=== PATIENT | female | born 1935 | race Caucasian/White ===

== ENCOUNTER 2018-02-23 11:15 | Inpatient (IN) | payer OTHER, MEDICARE ==
[2018-02-23] VITALS (10 sets, daily range): BP systolic 127–170; BP diastolic 58–85; PULSE 59–90; RESP 12–20; TEMP 96–98.2; O2SAT 96–99
[~2018-02-23] VITALS: Ht 167.6 cm; Wt 75.9 kg
[~2018-02-23 11:15] MED LIST: ASPI81 PO; BUSP5TAB3 PO; CALC500T21 PO; CLON0.2T PO; CLOP75 PO; DILA2INJ PO; FISH1000 PO; GLIM4TAB PO; GLUCTAB PO; HYDR25TA35 PO; KONS520C PO; LANTUS2P SC; LORA2TAB PO; LORTA5 PO; LUTE6CAP7 PO; MAGN500T4 PO; METO100T PO; NIFE30TA2 PO; NIFE60TA5 PO; PROT40TA PO; SIMV40TA PO; TAB-TAB PO; WARF5TAB PO; [UNRECOGNIZED DRUG - OTHER] PO
--- NOTE | 2018-02-23 11:29 | PD ---
HPI Chief Complaint: General Weakness Time Seen by Provider: 11:25 Travel History International Travel<30 days: No Contact w/Intl Traveler<30days: No Traveled to known affect area: No History of Present Illness HPI 82-year-old female patient with history of COPD, previous MD, CAD, stenting, peripheral vascular disease, presents to the ER today because she has had 1 week history of general weakness, coughing, shortness of breath and dyspnea on exertion. She states she has been nauseous as well but denies any chest pains, vomiting, or other symptoms. She was transported by EMS and was given duo nebs. Modifying Factors: None Associated Signs & Symptoms: General weakness, coughing, shortness of breath and dyspnea on exertion Risk Factors: Elderly, COPD PFSH Past Medical History Arthritis: Yes Cancer: No Cardiovascular Problems: Yes (STENTS) High Cholesterol: Yes Chest Pain: Yes Congestive Heart Failure: Yes Diabetes: Yes Endocrine: Yes Gastrointestinal Disorders: Yes (ESOPH. STRICTURE) GERD: Yes Genitourinary: No Headaches: Yes Hiatal Hernia: Yes Hypertension: Yes Immune Disorder: No Implanted Vascular Access Dvce: Yes Musculoskeletal: Yes Neurologic: Yes Psychiatric: No Reproductive: No Respiratory: No Myocardial Infarction: Yes (1996) Past Surgical History Abdominal Surgery: Yes (LAP. APURVA) Body Medical Devices: CARDIAC STENTS Cardiac Surgery: Yes (STENTS) Oral Surgery: Yes (T & A) Pacemaker: No Other Surgery: Yes ( CAROTID SURG) Social History Alcohol Use: No Tobacco Use: No Substance Use: No Allergies-Medications (Allergen,Severity, Reaction): Coded Allergies: morphine (Unverified Allergy, Severe, HIVES, 02/23/18) penicillin G (Unverified Allergy, Severe, HIVES, 02/23/18) Reported Meds & Prescriptions Reported Meds & Active Scripts Active Reported Pramipexole (Pramipexole Dihydrochloride) 0.5 Mg Tab 0.5 Mg PO HS Symbicort Inh (Budesonide/Formoterol Fumarate) 80-4.5 Mcg/Act Aero Unknown Dose INH Q12HR Metolazone 10 Mg Tab 10 Mg PO DAILY Lasix (Furosemide) 20 Mg Tab 20 Mg PO DAILY Gabapentin 300 Mg Cap 300 Mg PO TID [Iron] Oxycodone (Oxycodone HCl) 30 Mg Tab 30 Mg PO Q4-6H PRN Ativan (Lorazepam) 2 Mg Tab 2 Mg PO BID PRN Labetalol (Labetalol HCl) 200 Mg Tab 200 Mg PO TID Eliquis (Apixaban) 5 Mg Tab 5 Mg PO BID Klor-Con 10 (Potassium Chloride) 10 Meq Tab 20 Meq PO DAILY Tizanidine (Tizanidine HCl) 2 Mg Tab 2 Mg PO TID Singulair (Montelukast Sodium) 10 Mg Tab 10 Mg PO HS Amitriptyline (Amitriptyline HCl) 50 Mg Tab 50 Mg PO HS Zofran (Ondansetron HCl) 8 Mg Tab 8 Mg PO TID Lipitor (Atorvastatin Calcium) 20 Mg Tab 20 Mg PO HS Pantoprazole (Pantoprazole Sodium) 40 Mg Tab 40 Mg PO DAILY Review of Systems Except as stated in HPI: all other systems reviewed are Neg Physical Exam Narrative GENERAL: Well-developed elderly white female patient currently in moderate distress. Awake, lethargic, oriented 3. Poor historian. SKIN: Focused skin assessment warm/dry. HEAD: Atraumatic. Normocephalic. EYES: Pupils equal and round. No scleral icterus. No injection or drainage. ENT: No nasal bleeding or discharge. Mucous membranes pink and moist. NECK: Trachea midline. No JVD. Supple. CARDIOVASCULAR: Regular rate and rhythm. No murmur appreciated. RESPIRATORY: Mild accessory muscle use. Decreased throughout bilaterally. Breath sounds equal bilaterally. GASTROINTESTINAL: Abdomen soft, non-tender, nondistended. Hepatic and splenic margins not palpable. MUSCULOSKELETAL: No obvious deformities. No clubbing. No cyanosis. No edema. NEUROLOGICAL: Awake and alert. No obvious cranial nerve deficits. Motor grossly within normal limits. Normal speech. PSYCHIATRIC: Appropriate mood and affect; insight and judgment normal. Data Data Last Documented VS Vital Signs Date Time Temp Pulse Resp B/P (MAP) Pulse Ox O2 Delivery O2 Flow Rate FiO2 02/23/18 11:29 (102) 02/23/18 11:27 99 Nasal Cannula 2.00 02/23/18 11:22 98.2 62 16 Orders Orders Complete Blood Count With Diff (02/23/18 11:25) Comprehensive Metabolic Panel (02/23/18 11:25) B-Type Natriuretic Peptide (02/23/18 11:25) Act Partial Throm Time (Ptt) (02/23/18 11:25) Prothrombin Time / Inr (Pt) (02/23/18:25) Ckmb (Isoenzyme) Profile (02/23/18 11:25) Troponin I (02/23/18:) Urinalysis - C+S If Indicated (02/23/18:) Blood Culture (02/23/18:) Iv Access Insert/Monitor (02/23/18:) Electrocardiogram (02/23/18:) Ecg Monitoring (02/23/18) Oximetry (02/23/18:) Oxygen Administration (02/23/18:) Chest, Single Ap (02/23/18:25) Sodium Chloride 0.9% Flush (Ns Flush) (02/23/18 11:30) CKMB (02/23/18 11:45) CKMB% (02/23/18 11:45) Tramadol (Ultram) (02/23/18 12:30) Furosemide Inj (Lasix Inj) (02/23/18 12:30) Labs Laboratory Tests Test 02/23/18 11:45 White Blood Count 6.9 TH/MM3 Red Blood Count 3.39 MIL/MM3 Hemoglobin 9.9 GM/DL Hematocrit 30.3 % Mean Corpuscular Volume 89.4 FL Mean Corpuscular Hemoglobin 29.1 PG Mean Corpuscular Hemoglobin Concent 32.5 % Red Cell Distribution Width 14.5 % Platelet Count 337 TH/MM3 Mean Platelet Volume 8.2 FL CBC Comment AUTO DIFF Prothrombin Time 12.1 SEC Prothromb Time International Ratio 1.2 RATIO Activated Partial Thromboplast Time 25.7 SEC Blood Urea Nitrogen 12 MG/DL Creatinine 0.87 MG/DL Random Glucose 114 MG/DL Total Protein 7.1 GM/DL Albumin 2.9 GM/DL Calcium Level 8.7 MG/DL Alkaline Phosphatase 158 U/L Aspartate Amino Transf (AST/SGOT) 32 U/L Alanine Aminotransferase (ALT/SGPT) 27 U/L Total Bilirubin 0.7 MG/DL Sodium Level 128 MEQ/L Potassium Level 4.0 MEQ/L Chloride Level 91 MEQ/L Carbon Dioxide Level 29.1 MEQ/L Anion Gap 8 MEQ/L Estimat Glomerular Filtration Rate 62 ML/MIN Total Creatine Kinase 137 U/L Creatine Kinase MB 1.1 NG/ML Troponin I LESS THAN 0.02 NG/ML B-Type Natriuretic Peptide 971 PG/ML MDM Medical Decision Making Medical Screen Exam Complete: Yes Emergency Medical Condition: Yes Medical Record Reviewed: Yes Interpretation(s) EKG shows paced rhythm at a rate of 60 bpm with no signs of acute ST elevations or depressions. Laboratory Tests Test 02/23/18 11:45 Red Blood Count 3.39 MIL/MM3 (4.00-5.30) Hemoglobin 9.9 GM/DL (11.6-15.3) Hematocrit 30.3 % (35.0-46.0) Prothrombin Time 12.1 SEC (9.8-11.6) Random Glucose 114 MG/DL (74-106) Albumin 2.9 GM/DL (3.4-5.0) Alkaline Phosphatase 158 U/L (45-117) Sodium Level 128 MEQ/L (136-145) Chloride Level 91 MEQ/L (98-107) Estimat Glomerular Filtration Rate 62 ML/MIN (>89) Troponin I LESS THAN 0.02 NG/ML B-Type Natriuretic Peptide 971 PG/ML (0-100) Differential Diagnosis Shortness of breath, dyspnea on exertion, general weakness: Dehydration versus dysrhythmias versus metabolic issues versus sepsis versus pneumonia Narrative Course Chest x-ray shows white blood cell count is normal. Patient was given Lasix in the ER. Plan would be to admit her for further treatment. On further questioning, she admits she has had history of heart failure before. Case was discussed with Dr. Lanier for admission at this point. Diagnosis Primary Impression: CHF exacerbation Admitting Information Admitting Physician Requests: Admit Mariza Schafer MD Feb 23, 2018 11:29
[2018-02-23] MEDS ORDERED: SODIUM CHLORIDE 0.9% FLUSH 10 ML FLUSH IVF PRN (11:30)
[2018-02-23 12:02] LABS: CHLORIDE 91 MEQ/L (98-107); SODIUM (NA) 128 MEQ/L (136-145)
[2018-02-23 12:05] LABS: ALBUMIN 2.9 GM/DL (3.4-5.0); CALCIUM 8.7 MG/DL (8.5-10.1)
--- NOTE | 2018-02-23 12:05 | RADRPT ---
EXAM DATE/TIME: 02/23/2018 11:28 [facility] COMPARISON: CHEST SINGLE AP, November 23, 2012, 10:57. INDICATIONS : Short of breath. Body aches. MEDICAL HISTORY : Myocardial infarction. Congestive heart failure. Hypercholesterolemia. Diabetic. Hiatial hernia. GERD. Arthritis. SURGICAL HISTORY : Tonsillectomy. Cholecystectomy. Cardiac stent. ENCOUNTER: Initial ACUITY: 1 day PAIN SCORE: 7/10 LOCATION: head & legs FINDINGS: There is mild left base consolidation and with a probable small pleural effusion. No pneumothorax see n. There is mild cardiomegaly, similar to before. Thoracic aorta is tortuous and atherosclerotic. CONCLUSION: Mild consolidation and small effusion at the left lung base. Jude Xie MD on February 23, 2018 at 12:02 Board Certified Radiologist. This report was verified electronically.
[2018-02-23 12:06] LABS: BICARBONATE 29.1 MEQ/L (21.0-32.0); BLOOD UREA NITROGEN 12 MG/DL (7-18); GLUCOSE,RANDOM 114 MG/DL (74-106)
[2018-02-23 12:07] LABS: HEMATOCRIT 30.3 % (35.0-46.0); HEMOGLOBIN 9.9 GM/DL (11.6-15.3); INTERNATIONAL NORMALIZED RATIO 1.2 RATIO; MEAN CELL VOLUME 89.4 FL (80.0-100.0); MEAN CORPUSCULAR HEMOGLOBIN 29.1 PG (27.0-34.0); MEAN CORPUSCULAR HGB CONC 32.5 % (32.0-36.0); MEAN PLATELET VOLUME 8.2 FL (7.0-11.0); PLATELET COUNT 337 TH/MM3 (150-450); PROTHROMBIN TIME - PATIENT 12.1 SEC (9.8-11.6); RED BLOOD COUNT 3.39 MIL/MM3 (4.00-5.30); RED CELL DISTRIBUTION WIDTH 14.5 % (11.6-17.2); WHITE BLOOD COUNT 6.9 TH/MM3 (4.0-11.0)
[2018-02-23 12:08] LABS: ALT (GPT) 27 U/L (10-53)
[2018-02-23 12:09] LABS: AST (GOT) 32 U/L (15-37); CREATININE 0.87 MG/DL (0.50-1.00); GLOMERULAR FILTRATION RATE 62 ML/MIN (>89)
[2018-02-23 12:10] LABS: TOTAL BILIRUBIN ADULT 0.7 MG/DL (0.2-1.0); TOTAL PROTEIN 7.1 GM/DL (6.4-8.2)
[2018-02-23 12:11] LABS: ALKALINE PHOSPHATASE 158 U/L (45-117)
[2018-02-23 12:13] LABS: TROPONIN I LESS THAN 0.02 NG/ML (0.02-0.05)
[2018-02-23] MEDS ORDERED: LIPI20TA PO (12:22)
[2018-02-23] MEDS ORDERED: METO10TA4 PO (12:22)
[2018-02-23] MEDS ORDERED: AMIT50TA3 PO (12:22)
[2018-02-23] MEDS ORDERED: LORA-475 PO (12:22)
[2018-02-23] MEDS ORDERED: FURO1TAB62 PO (12:22)
[2018-02-23] MEDS ORDERED: LABE200T2 PO (12:22)
[2018-02-23] MEDS ORDERED: MONT10TA2 PO (12:22)
[2018-02-23] MEDS ORDERED: GABA300C5 PO (12:22)
[2018-02-23] MEDS ORDERED: OXYC30TA PO (12:22)
[2018-02-23] MEDS ORDERED: APIX5TAB PO (12:22)
[2018-02-23] MEDS ORDERED: ZOFR8TAB PO (12:22)
[2018-02-23] MEDS ORDERED: IRONTAB5 (12:22)
[2018-02-23] MEDS ORDERED: KLOR10TA PO (12:22)
[2018-02-23] MEDS ORDERED: SYMB80AE INH (12:22)
[2018-02-23] MEDS ORDERED: TIZA2TAB PO (12:22)
[2018-02-23] MEDS ORDERED: PANT40TA3 PO (12:22)
[2018-02-23] MEDS ORDERED: PRAM0.5T PO (12:23)
[2018-02-23] MEDS ORDERED: traMADol HCL 50 MG TAB PO ONE (12:30)
[2018-02-23] MEDS ORDERED: FUROSEMIDE 20 MG/2 ML VIAL IV PUSH ONE (12:30)
[2018-02-23] MEDS ORDERED: SODIUM CHLORIDE 0.9% FLUSH 10 ML FLUSH IV FLUSH PRN (12:45)
[2018-02-23] MEDS ORDERED: NALOXONE HCL 0.4 MG/ML AMP IV PUSH PRN (12:45)
[2018-02-23 13:00] LABS: LYMPHOCYTES 19 % (9-44); MONOCYTES 6 % (0-8); NEUTROPHIL # MANUAL DIFF 4.9 TH/MM3 (1.8-7.7); POLYS (SEG NEUTROPHILS) 71 % (16-70)
[2018-02-23 13:04] LABS: OVALOCYTES 1+ (NORMAL)
[2018-02-23 13:13] LABS: BILIRUBIN, URINE NEG (NEG); BLOOD, URINE NEG (NEG); GLUCOSE,URINE NEG (NEG); KETONE, URINE NEG (NEG); NITRITE,URINE NEG (NEG); URINE COLOR YELLOW (YELLW/STRAW); URINE LEUKOCYTE ESTERASE NEG (NEG)
[2018-02-23 13:19] LABS: SQUAMOUS EPITHELIAL CELL URINE 0-5 /hpf (0-5); WBC, URINE 0-2 /hpf (0-5)
[2018-02-23] MEDS ORDERED: ACETAMINOPHEN 325 MG TAB PO PRN (14:00)
[2018-02-23] MEDS ORDERED: MAGNESIUM HYDROXIDE SUSP 30 ML CUP PO PRN (14:00)
[2018-02-23] MEDS ORDERED: LANTUS2P SQ (14:06)
[2018-02-23] MEDS ORDERED: DEXTROSE 50% IN WATER 50 ML VIAL(D50) IV PUSH PRN (14:30)
[2018-02-23] MEDS ORDERED: GLUCAGON 1 MG/ML VIAL OTHER PRN (14:30)
--- NOTE | 2018-02-23 14:49 | HHI.HP ---
[facility] Service [place] [facility] Primary Care Physician Crystal Allen MD Admission Diagnosis CHF exacerbation/hyponatremia Diagnoses: Chief Complaint: Weakness Travel History International Travel<30 Days: No Contact w/Intl Traveler <30 Da: No Traveled to Known Affected Are: No Review of Systems Constitutional: COMPLAINS OF: Fatigue, DENIES: Diaphoretic episodes, Fever, Weight gain, Weight loss, Chills, Dizziness, Change in appetite, Night Sweats Endocrine: DENIES: Abnorml menstrual pattern, Heat/cold intolerance, Polydipsia , Polyuria, Polyphagia Eyes: DENIES: Blurred vision, Diplopia, Eye inflammation, Eye pain, Vision loss , Photosensitivity, Double Vision Ears, nose, mouth, throat: DENIES: Tinnitus, Hearing loss, Vertigo, Nasal discharge, Oral lesions, Throat pain, Hoarseness, Ear Pain, Running Nose, Epistaxis, Sinus Pain, Toothache, Odynophagia Respiratory: COMPLAINS OF: Snoring, Shortness of breath, DENIES: Apneas, Cough , Wheezing, Hemoptysis, Sputum production Cardiovascular: COMPLAINS OF: Dyspnea on Exertion, Lower Extremity Edema, Orthopnea, DENIES: Chest pain, Palpitations, Syncope, PND, Claudication Gastrointestinal: DENIES: Abdominal pain, Black stools, Bloody stools, Constipation, Diarrhea, Nausea, Vomiting, Difficulty Swallowing, Anorexia Genitourinary: DENIES: Abnormal vaginal bleeding, Dysmenorrhea, Dyspareunia, Sexual dysfunction, Urinary frequency, Urinary incontinence, Urgency, Hematuria , Dysuria, Nocturia, Vaginal discharge Musculoskeletal: COMPLAINS OF: Joint pain, Joint Swelling, Back pain, DENIES: Muscle aches, Stiffness, Neck pain Integumentary: DENIES: Abnormal pigmentation, Pruritus, Rash, Nail changes, Breast masses, Breast skin changes, Nipple discharge Immunologic/allergic: DENIES: Eczema, Urticaria Neurologic: COMPLAINS OF: Headache, DENIES: Abnormal gait, Localized weakness, Paresthesias, Seizures, Speech Problems, Tremor, Poor Balance Psychiatric: DENIES: Anxiety, Confusion, Mood changes, Depression, Hallucinations, Agitation, Suicidal Ideation, Homicidal Ideation, Delusions Except as stated in HPI: all other systems reviewed are Neg Past Family Social History Past Medical History Congestive heart failure Cardiac stents Arthritis Diabetes Chronic pain syndrome Coronary artery disease Past Surgical History Pacemaker Cardiac stents 3 Carotid surgery Tonsils Cholecystectomy with recent stent removal Reported Medications Reviewed in the EMR Allergies: Coded Allergies: morphine (Unverified Allergy, Severe, HIVES, 02/23/18) penicillin G (Unverified Allergy, Severe, HIVES, 02/23/18) Active Ordered Medications Reviewed in the EMR Family History Family history of hypertension coronary disease Social History No tobacco or alcohol dependency, lives with her family Physical Exam Vital Signs Vital Signs Date Time Temp Pulse Resp B/P (MAP) Pulse Ox O2 Delivery O2 Flow Rate FiO2 02/23/18 13:21 02/23/18 13:21 59 16 157/85 (109) 96 Room Air 02/23/18 11:29 (102) 02/23/18 11:27 99 Nasal Cannula 2.00 02/23/18 11:27 99 Nasal Cannula 2.00 02/23/18 11:22 99 Nasal Cannula 2.00 02/23/18 11:22 98.2 62 16 166/70 (102) 96 Room Air Physical Exam GENERAL: This is a well-nourished, frail and elderly female complaining of fatigue SKIN: No rashes, ecchymoses or lesions. Cool and dry. HEAD: Atraumatic. Normocephalic. No temporal or scalp tenderness. EYES: Pupils equal round and reactive. Extraocular motions intact. No scleral icterus. No injection or drainage. ENT: Nose without bleeding, purulent drainage or septal hematoma. Throat without erythema, tonsillar hypertrophy or exudate. Uvula midline. Airway patent. NECK: Trachea midline. No JVD or lymphadenopathy. Supple, nontender, no meningeal signs. CARDIOVASCULAR: Regular rate and rhythm without murmurs, gallops, or rubs. RESPIRATORY: Clear to auscultation. Breath sounds equal bilaterally. No wheezes , rales, or rhonchi. GASTROINTESTINAL: Abdomen soft, non-tender, nondistended. No hepato-splenomegaly , or palpable masses. No guarding. MUSCULOSKELETAL: There is left knee edema, extremities without clubbing, cyanosis, or edema. No joint tenderness, effusion, or edema noted. No calf tenderness. Negative Homans sign bilaterally. NEUROLOGICAL: Awake and alert. Cranial nerves II through XII intact. Motor and sensory grossly within normal limits. Five out of 5 muscle strength in all muscle groups. Normal speech. Laboratory Laboratory Tests Test 02/23/18 11:45 02/23/18 13:00 White Blood Count 6.9 Red Blood Count 3.39 Hemoglobin 9.9 Hematocrit 30.3 Mean Corpuscular Volume 89.4 Mean Corpuscular Hemoglobin 29.1 Mean Corpuscular Hemoglobin Concent 32.5 Red Cell Distribution Width 14.5 Platelet Count 337 Mean Platelet Volume 8.2 CBC Comment AUTO DIFF Differential Total Cells Counted 100 Neutrophils % (Manual) 71 Lymphocytes % 19 Monocytes % 6 Eosinophils % 4 Neutrophils # (Manual) 4.9 Differential Comment FINAL DIFF MANUAL Platelet Estimate NORMAL Platelet Morphology Comment NORMAL Ovalocytes 1+ Prothrombin Time 12.1 Prothromb Time International Ratio 1.2 Activated Partial Thromboplast Time 25.7 Blood Urea Nitrogen 12 Creatinine 0.87 Random Glucose 114 Total Protein 7.1 Albumin 2.9 Calcium Level 8.7 Alkaline Phosphatase 158 Aspartate Amino Transf (AST/SGOT) 32 Alanine Aminotransferase (ALT/SGPT) 27 Total Bilirubin 0.7 Sodium Level 128 Potassium Level 4.0 Chloride Level 91 Carbon Dioxide Level 29.1 Anion Gap 8 Estimat Glomerular Filtration Rate 62 Total Creatine Kinase 137 Creatine Kinase MB 1.1 Troponin I LESS THAN 0.02 B-Type Natriuretic Peptide 971 Urine Collection Type CLEAN CATCH Urine Color YELLOW Urine Turbidity CLEAR Urine pH 7.0 Urine Specific [place] 1.015 Urine Protein 30 Urine Glucose (UA) NEG Urine Ketones NEG Urine Occult Blood NEG Urine Nitrite NEG Urine Bilirubin NEG Urine Urobilinogen 0.2 Urine Leukocyte Esterase NEG Urine WBC 0-2 Urine Squamous Epithelial Cells 0-5 Microscopic Urinalysis Comment CULT NOT INDICATED Urine Collection Time 13:00 Date/Time Source Procedure Growth Status 02/23/18 11:45 Blood Peripheral Aerobic Blood Culture Pending Received 02/23/18 11:45 Blood Peripheral Anaerobic Blood Culture Pending Received Result Diagram: 02/23/18 1145 02/23/18 1145 Imaging Chest x-ray my review does show some vascular congestion Septic Shock Reassessment Septic shock perfusion: reassessment completed Caprini VTE Risk Assessment Caprini VTE Risk Assessment: Mod/High Risk (score >= 2) Caprini Risk Assessment Model Point Value = 1 Point Value = 2 Point Value = 3 Point Value = 5 Age 41-60 Minor surgery BMI > 25 kg/m2 Swollen legs Varicose veins or History of unexplained or recurrent spontaneous Oral contraceptives or hormone replacement Sepsis (< 1 month) Serious lung disease, including pneumonia (< 1 month) Abnormal pulmonary function Acute myocardial infarction Congestive heart failure (< 1 month) History of inflammatory bowel disease Medical patient at bed rest Age 61-74 Arthroscopic surgery Major open surgery (> 45 min) Laparoscopic surgery (> 45 min) Malignancy Confined to bed (> 72 hours) Immobilizing plaster cast Central venous access Age >= 75 History of VTE Family history of VTE Factor V Leiden Prothrombin [id number] Lupus anticoagulant Anticardiolipin antibodies Elevated serum homocysteine Heparin-induced thrombocytopenia Other congenital or acquired thrombophilia Stroke (< 1 month) Elective arthroplasty Hip, pelvis, or leg fracture Acute spinal cord injury (< 1 month) Prophylaxis Regimen Total Risk Factor Score Risk Level Prophylaxis Regimen 0-1 Low Early ambulation 2 Moderate Order ONE of the following: *Sequential Compression Device (SCD) *Heparin 5000 units SQ BID 3-4 Higher Order ONE of the following medications: *Heparin 5000 units SQ TID *Enoxaparin/Lovenox 40 mg SQ daily (WT < 150 kg, CrCl > 30 mL/min) *Enoxaparin/Lovenox 30 mg SQ daily (WT < 150 kg, CrCl > 10-29 mL/min) *Enoxaparin/Lovenox 30 mg SQ BID (WT < 150 kg, CrCl > 30 mL/min) AND/OR *Sequential Compression Device (SCD) 5 or more Highest Order ONE of the following medications: *Heparin 5000 units SQ TID (Preferred with Epidurals) *Enoxaparin/Lovenox 40 mg SQ daily (WT < 150 kg, CrCl > 30 mL/min) *Enoxaparin/Lovenox 30 mg SQ daily (WT < 150 kg, CrCl > 10-29 mL/min) *Enoxaparin/Lovenox 30 mg SQ BID (WT < 150 kg, CrCl > 30 mL/min) AND *Sequential Compression Device (SCD) Assessment and Plan Problem List: (1) Weakness ICD Code: R53.1 - Weakness Plan: Multifactorial due to likely congestive heart failure exacerbation and hyponatremia We will continue with following up electrolytes and his volume status is corrected PT evaluation (2) Constipation ICD Code: K59.00 - Constipation, unspecified Plan: Continue with bowel regimen (3) DM2 (diabetes mellitus, type 2) ICD Code: E11.9 - Type 2 diabetes mellitus without complications Plan: Continue with diabetic management with insulin and diabetic diet (4) Hyponatremia ICD Code: E87.1 - Hypo-osmolality and hyponatremia Plan: Likely due to CHF exacerbation, will continue with diuresis and follow clinically (5) CHF exacerbation ICD Code: I50.9 - Heart failure, unspecified Status: Acute Plan: Continue with intake and output, follow-up diuretic management Continue surveillance of his electrolytes Assessment and Plan Plan of care to be determined by hospital course Code Status full code Discussed Condition With Patient, ER MD Lanier,Kathy Strickland MD Feb 23, 2018 14:49
[2018-02-23] MEDS ORDERED: LORazepam 2 MG TAB PO PRN (15:00)
[2018-02-23] MEDS ORDERED: cloNIDine HCL 0.1 MG TAB PO PRN (16:30)
[2018-02-23] MEDS: GABAPENTIN 300 MG CAP PO SCH (17:18)
[2018-02-23] MEDS: INSULIN ASPART SUPPLEMENTAL SCALE SQ SCH ×2 (17:18→21:25)
[2018-02-23] MEDS: ONDANSETRON HCL 4 MG/2 ML VIAL IVP PRN (17:19)
[2018-02-23] MEDS: LABETALOL HCL 200 MG TAB PO SCH (17:19)
[2018-02-23] MEDS: FUROSEMIDE 40 MG/4 ML VIAL IV PUSH SCH (17:20)
[2018-02-23] MEDS ORDERED: AMITRIPTYLINE HCL 50 MG TAB PO SCH (21:00)
[2018-02-23] MEDS: INSULIN DETEMIR 100 UNITS/ML VIAL SQ SCH (21:25)
[2018-02-23] MEDS: MONTELUKAST SODIUM 10 MG TAB PO SCH (21:27)
[2018-02-23] MEDS: DOCUSATE SODIUM 100 MG CAP PO SCH (21:27)
[2018-02-23] MEDS: PRAMIPEXOLE DIHYDROCHLORIDE 0.25 MG TAB PO SCH (21:27)
[2018-02-23] MEDS: ATORVASTATIN 20 MG TAB PO SCH (21:27)
[2018-02-23] MEDS: APIXABAN 5 MG TABLET PO SCH (21:28)
[2018-02-23] MEDS: SODIUM CHLORIDE 0.9% FLUSH 10 ML FLUSH IV FLUSH SCH (21:37)
[2018-02-24] VITALS (10 sets, daily range): BP systolic 108–135; BP diastolic 56–62; PULSE 59–72; RESP 18–20; TEMP 96.3–98.7; O2SAT 93–98
[2018-02-24 07:24] LABS: AUTOMATED NEUTROPHIL # 4.8 TH/MM3 (1.8-7.7); BASOPHIL % 0.7 % (0.0-2.0); EOSINOPHIL # 0.4 TH/MM3 (0-0.4); EOSINOPHIL % 6.2 % (0.0-4.0); HEMATOCRIT 28.6 % (35.0-46.0); HEMOGLOBIN 9.4 GM/DL (11.6-15.3); LYMPH % 17.5 % (9.0-44.0); LYMPHOCYTE # 1.2 TH/MM3 (1.0-4.8); MEAN CELL VOLUME 89.8 FL (80.0-100.0); MEAN CORPUSCULAR HEMOGLOBIN 29.6 PG (27.0-34.0); MEAN PLATELET VOLUME 8.1 FL (7.0-11.0); MONO % 8.2 % (0.0-8.0); MONOCYTE # 0.6 TH/MM3 (0-0.9); NEUT % 67.4 % (16.0-70.0); PLATELET COUNT 317 TH/MM3 (150-450); RED BLOOD COUNT 3.18 MIL/MM3 (4.00-5.30); RED CELL DISTRIBUTION WIDTH 14.5 % (11.6-17.2)
[2018-02-24 07:33] LABS: CALCIUM 8.3 MG/DL (8.5-10.1)
[2018-02-24 07:34] LABS: BICARBONATE 32.7 MEQ/L (21.0-32.0)
[2018-02-24 07:37] LABS: CREATININE 1.1 MG/DL (0.50-1.00)
[2018-02-24] MEDS: INSULIN ASPART SUPPLEMENTAL SCALE SQ SCH ×4 (07:46→22:17)
--- NOTE | 2018-02-24 08:03 | EKG ---
Date Performed: 02/23/2018 Time Performed: 19:36:34 PTAGE: 82 years EKG: ELECTRONIC VENTRICULAR PACEMAKER ABNORMAL RHYTHM ECG PREVIOUS TRACING : 02/23/2018 12.19 DOCTOR: Syed Rosales Interpretating Date/Time 02/24/2018 08:01:51
--- NOTE | 2018-02-24 08:06 | MB ---
cc: Jaspal Walker MD DATE: 02/24/2018 REASON FOR CONSULTATION: CHF. HISTORY OF PRESENT ILLNESS: The patient is a pleasant 82-year-old woman who presents with generalized weakness and shortness of breath. From speaking with her and her daughter, it sounds that the patient has not been doing well for at least the last several months with general failure to thrive. She has been in the hospital for gallbladder related issues as well as hyponatremia and apparently left [facility] still hyponatremic. The patient has been very weak, sleeping. The patient's granddaughter states that she basically has not been able to keep her eyes open for the last several weeks and is generally not able to take care of herself. Currently, the patient is feeling better since she has been started on diuresis, but is still very somnolent. She is able to answer questions, but her eyes quickly closed and she drifts into a light sleep. PAST MEDICAL HISTORY: Congestive heart failure, coronary artery disease with prior stents, chronic pain syndrome, history of pacemaker, presumptive atrial fibrillation maintained on Eliquis. CURRENT MEDICATIONS: 1. Zaroxolyn 10 mg daily. 2. MiraLax. 3. Protonix. 4. Elavil 50 mg at bedtime. 5. Eliquis 5 mg twice a day. 6. Lipitor 20 mg at bedtime. 7. Gabapentin 300 mg three times a day. 8. Tramadol 200 mg three times a day. 9. Zanaflex 2 mg three times a day. ALLERGIES: MORPHINE AND PENICILLIN. PHYSICAL EXAMINATION: VITAL SIGNS: Afebrile, pulse 60, respiratory rate 20, BP 115/56, satting 98 on 2 liters. GENERAL: Pleasant, elderly, somnolent woman in no distress. NECK: No JVD. LUNGS: Clear to auscultation bilaterally. CARDIOVASCULAR: Regular rate and rhythm. No murmurs appreciated. ABDOMEN: Benign. EXTREMITIES: Trace edema bilaterally. LABORATORY DATA: Sodium 128, potassium 4.0, chloride 91, bicarbonate 29.1, BUN 12, creatinine 0.87, glucose 114. Cardiac enzymes are negative. BNP is 971. White count 7, hematocrit 28.6, platelets 317. EKG shows a paced rhythm. Chest x-ray shows mild consolidation, small effusions. ASSESSMENT AND PLAN: 1. Shortness of breath. The patient likely had a mild CHF exacerbation. She is already feeling better on IV diuresis and this will continue. I will have her undergo an echocardiogram to ensure no significant change in ejection fraction or valvular status. 2. Generalized weakness. The patient has generalized weakness possibly due to hyponatremia, but also may have general failure to thrive. I note, she is on a number of psychotropic medications which may be affecting her mental status and overall weakness. I would ask the primary team to reevaluate her overall medication regimen in this regard. Further recommendations will be based on her clinical course, although it is a fairly high likelihood that the patient will need some sort of short to long-term care following discharge as she does not appear to be safe at home. Thank you for the opportunity to participate in this patient's care. Jaspal Walker MD TITA/RADHA , 07:36 AM , 08:06 AM
[2018-02-24] MEDS: INSULIN DETEMIR 100 UNITS/ML VIAL SQ SCH ×2 (08:39→22:16)
[2018-02-24] MEDS: GABAPENTIN 300 MG CAP PO SCH ×2 (08:40→17:12)
[2018-02-24] MEDS: PANTOPRAZOLE SOD 40 MG DELAYED RELEASE TAB PO SCH (08:40)
[2018-02-24] MEDS: LABETALOL HCL 200 MG TAB PO SCH ×2 (08:40→17:12)
[2018-02-24] MEDS: APIXABAN 5 MG TABLET PO SCH ×2 (08:41→22:19)
[2018-02-24] MEDS: POLYETHYLENE GLYCOL 17 GM PKG PO SCH (08:41)
[2018-02-24] MEDS: DOCUSATE SODIUM 100 MG CAP PO SCH ×2 (08:42→22:18)
[2018-02-24] MEDS: FUROSEMIDE 40 MG/4 ML VIAL IV PUSH SCH ×2 (08:42→17:12)
[2018-02-24] MEDS: SODIUM CHLORIDE 0.9% FLUSH 10 ML FLUSH IV FLUSH SCH ×2 (08:43→22:22)
[2018-02-24] MEDS ORDERED: POTASSIUM CHLORIDE 20 MEQ CONTROLLED RELEASE TAB PO SCH (09:00)
[2018-02-24] MEDS ORDERED: METOLAZONE 5 MG TAB PO SCH (09:00)
--- NOTE | 2018-02-24 10:10 | HHI.FF ---
Face to Face Verification Diagnosis: (1) DM2 (diabetes mellitus, type 2) (2) Weakness (3) Hyponatremia (4) CHF exacerbation Physical Therapy Order: Evaluate and Treat, Improve ambulation Occupational Therapy Order: Evaluate and Treat, Gross motor coordination Home Health Nursing Order: Medical education CHF education Entry Level Electrical Engineer Order: To Provide: Long range planning I have seen patient Carin Hill on 02/24/18. My clinical findings support the need for the requested home health care services because: Deconditioned w/ increased weakness Limited ability to care for self I certify that my clinical findings support that this patient is homebound because: Unsteady gait/balance Kathy Lanier MD Feb 24, 2018 10:10
--- NOTE | 2018-02-24 12:31 | ECHRPT ---
Indication: HEART FAILURE CONCLUSIONS The left ventricular systolic function is low normal with an estimated ejection fraction in the rang e of 50- 55%. Normal left ventricular size. Wall thickness is normal. No regional wall motion abnormalities are present. The left atrial size is mildly dilated. Mild mitral annular calcification. [id number] mitral valve regurgitation. Diffuse calcification of the aortic valve. There is trace tricuspid valve regurgitation. The estimated pulmonary arterial pressure is 35 mmHg. aneurysmal atrial septum BP: 115 / 56 HR: 75 Rhythm: Sinus MEASUREMENTS (Male / Female) Normal Values Technical Quality:Good 2D ECHO LV Diastolic Diameter PLAX 4.2 cm 4.2 - 5.9 / 3.9 - 5.3 cm LV Systolic Diameter PLAX 3.2 cm IVS Diastolic Thickness 1.0 cm 0.6 - 1.0 / 0.6 - 0.9 cm LVPW Diastolic Thickness 1.0 cm 0.6 - 1.0 / 0.6 - 0.9 cm LV Relative Wall Thickness 0.5 RV Internal Dim ED PLAX 2.7 cm LVOT Diameter 1.6 cm LA Systolic Diameter LX 4.2 cm 3.0 - 4.0 / 2.7 - 3.8 cm LV Ejection Fraction MOD 4C 53.7 % LV Cardiac Index MOD 4C 1753.4 cm/minm LV Ejection Fraction 4C AL 55.2 % LV Cardiac Index 4C AL 1838.3 cm/minm M-MODE Aortic Root Diameter MM 2.3 cm LA Systolic Diameter MM 4.3 cm LA Ao Ratio MM 1.9 AV Cusp Separation MM 1.5 cm DOPPLER AV Peak Velocity 153.0 cm/s AV Peak Gradient 9.4 mmHg LVOT Peak Velocity 96.3 cm/s LVOT Peak Gradient 3.7 mmHg AV Area Cont Eq pk 1.3 cm MV Area PHT 3.4 cm TR Peak Velocity 250.0 cm/s TR Peak Gradient 25.0 mmHg Right Atrial Pressure 10.0 mmHg Pulmonary Artery Systolic Pressu 35.0 mmHg Right Ventricular Systolic Press 35.0 mmHg PV Peak Velocity 73.3 cm/s PV Peak Gradient 2.1 mmHg FINDINGS LEFT VENTRICLE The left ventricular systolic function is low normal with an estimated ejection fraction in the rang e of 50- 55%. Normal left ventricular size. Wall thickness is normal. No regional wall motion abnormalities are present. RIGHT VENTRICLE Normal right ventricular size and systolic function. LEFT ATRIUM The left atrial size is mildly dilated. RIGHT ATRIUM The right atrial size is normal. AORTA The aortic root and proximal ascending aorta are normal in size on limited imaging. MITRAL VALVE Structurally normal mitral valve. Mild mitral annular calcification. [id number] mitral valve regurgitation. AORTIC VALVE Trileaflet aortic valve. Diffuse calcification of the aortic valve. TRICUSPID VALVE Structurally normal tricuspid valve. There is trace tricuspid valve regurgitation. The estimated pulmonary arterial pressure is 35 mmHg. PULMONARY VALVE No pulmonary valve regurgitation or stenosis. VESSELS The inferior vena cava is normal in size. PERICARDIUM No pericardial effusion. Chadd Vallejo MD, FACC, [facility] (Electronically Signed) Final Date:24 February 2018 12:30
--- NOTE | 2018-02-24 12:59 | HHI.PR ---
Subjective Remarks Patient seen and evaluated today in follow-up for acute diastolic heart failure with improvement after diuresis. Sodium somewhat improved. Cardiology evaluation appreciated. Potassium 3.3 will require further replacement. Patient complaining of leg cramps overnight likely worse with the hypokalemia. Care plan discussed with Kendra GIBBS Objective Vitals Vital Signs Date Time Temp Pulse Resp B/P (MAP) Pulse Ox O2 Delivery O2 Flow Rate FiO2 02/24/18 07:50 97.0 59 19 119/61 (80) 96 02/24/18 07:01 60 02/24/18 04:00 97.6 60 20 115/56 (75) 98 02/24/18 00:00 98.0 72 20 135/62 (86) 98 02/23/18 20:40 98 Nasal Cannula 2.00 02/23/18 20:00 68 02/23/18 20:00 96.9 79 20 127/58 (81) 99 02/23/18 17:15 134/72 (92) 02/23/18 16:00 96.0 90 12 170/80 (110) 98 02/23/18 14:47 67 162/71 (101) 02/23/18 14:10 60 02/23/18 13:36 96 21 02/23/18 13:21 02/23/18 13:21 59 16 157/85 (109) 96 Room Air I/O 02/23/18 02/23/18 02/23/18 02/24/18 02/24/18 02/24/18 07:00 15:00 23:00 07:00 15:00 23:00 Intake Total 620 ml 930 ml Output Total 950 ml Balance -950 ml 620 ml 930 ml Intake Oral 620 ml 930 ml Output Urine Total 950 ml # Voids 1 3 3 # Bowel Movements 0 0 Result Diagram: 02/24/18 0635 02/24/18 0635 Objective Remarks GENERAL: This is a well-nourished, well-developed patient, in no apparent distress. CARDIOVASCULAR: Regular rate and rhythm without murmurs, gallops, or rubs. RESPIRATORY: Clear to auscultation. Breath sounds equal bilaterally. No wheezes , rales, or rhonchi. GASTROINTESTINAL: Abdomen soft, non-tender, nondistended. Normal active bowel sounds MUSCULOSKELETAL: Extremities without clubbing, cyanosis, or edema. NEURO: Alert & Oriented x4 to person, place, time, situation. Moves all ext x4 A/P Problem List: (1) Weakness ICD Code: R53.1 - Weakness Plan: Multifactorial due to likely congestive heart failure exacerbation and hyponatremia We will continue with following up electrolytes and his volume status is corrected PT evaluation We will review medications for polypharmacy Ativan has been changed to as needed , and the doses of Ativan and Elavil have been lowered (2) Constipation ICD Code: K59.00 - Constipation, unspecified Plan: Continue with bowel regimen (3) DM2 (diabetes mellitus, type 2) ICD Code: E11.9 - Type 2 diabetes mellitus without complications Plan: Continue with diabetic management with insulin and diabetic diet (4) Hyponatremia ICD Code: E87.1 - Hypo-osmolality and hyponatremia Plan: Likely due to CHF exacerbation, will continue with diuresis and follow clinically (5) CHF exacerbation ICD Code: I50.9 - Heart failure, unspecified Status: Acute Plan: Continue with intake and output, follow-up diuretic management Continue surveillance of his electrolytes Likely acute diastolic heart failure exacerbation, improved after diuresis Discharge Planning Likely home with home health in 1-2 days Kathy Lanier MD Feb 24, 2018 12:59
[2018-02-24] MEDS ORDERED: BISACODYL EC 5 MG TABEC PO ONE (13:00)
[2018-02-24] MEDS ORDERED: LORazepam 2 MG TAB PO PRN (13:00)
--- NOTE | 2018-02-24 13:24 | EKG ---
Date Performed: 02/23/2018 Time Performed: 12:19:20 PTAGE: 82 years EKG: ELECTRONIC VENTRICULAR PACEMAKER ABNORMAL RHYTHM ECG PREVIOUS TRACING : 11/24/2012 05.50 DOCTOR: Syed Rosales Interpretating Date/Time 02/24/2018 13:22:34
[2018-02-24] MEDS: MONTELUKAST SODIUM 10 MG TAB PO SCH (22:17)
[2018-02-24] MEDS: PRAMIPEXOLE DIHYDROCHLORIDE 0.25 MG TAB PO SCH (22:18)
[2018-02-24] MEDS: ATORVASTATIN 20 MG TAB PO SCH (22:18)
[2018-02-24] MEDS: AMITRIPTYLINE HCL 25 MG TAB PO SCH (22:22)
[2018-02-24] MEDS: POTASSIUM CHLORIDE 20 MEQ CONTROLLED RELEASE TAB PO SCH (22:22)
[2018-02-25] VITALS (9 sets, daily range): BP systolic 106–166; BP diastolic 53–92; PULSE 60–74; RESP 18–20; TEMP 96.8–98.3; O2SAT 91–99
[2018-02-25] MEDS: LABETALOL HCL 200 MG TAB PO SCH ×3 (00:21→16:29)
[2018-02-25] MEDS: GABAPENTIN 300 MG CAP PO SCH ×2 (00:21→21:09)
[2018-02-25 07:04] LABS: CALCIUM 8.1 MG/DL (8.5-10.1)
[2018-02-25 07:05] LABS: BICARBONATE 34.6 MEQ/L (21.0-32.0)
[2018-02-25 07:08] LABS: CREATININE 1.4 MG/DL (0.50-1.00)
--- NOTE | 2018-02-25 07:50 | PD.CARD.PN ---
Subjective Subjective Remarks Pt says she is feeling a little better but a bit wheezy Objective Medications Current Medications Medications (Trade) Dose Ordered Sig/Emelia Route Start Time Stop Time Status Last Admin (NS Flush) 2 ml UNSCH PRN IV FLUSH 02/23/18 12:45 (NS Flush) 2 ml BID IV FLUSH 02/23/18 21:00 02/24/18 22:22 (Tylenol) 650 mg Q4H PRN PO 02/23/18 14:00 (Zofran Inj) 4 mg Q6H PRN IVP 02/23/18 14:00 02/23/18 17:19 (Narcan Inj) 0.4 mg UNSCH PRN IV PUSH 02/23/18 12:45 (Milk Of Magnesia Liq) 30 ml Q12H PRN PO 02/23/18 14:00 (Miralax) 17 gm DAILY PO 02/24/18 09:00 02/24/18 08:41 (Colace) 100 mg BID PO 02/23/18 21:00 02/24/18 22:18 (D50w (Vial) Inj) 50 ml UNSCH PRN IV PUSH 02/23/18 14:30 (Glucagon Inj) 1 mg UNSCH PRN OTHER 02/23/18 14:30 (NovoLOG SUPPLEMENTAL SCALE) 1 ACHS SLIDING SCALE SQ 02/23/18 17:00 02/24/18 22:17 (Eliquis) 5 mg BID PO 02/23/18 21:00 02/24/18 22:19 (Lipitor) 20 mg HS PO 02/23/18 21:00 02/24/18 22:18 (Levemir Inj) 10 units BID SQ 02/23/18 21:00 02/24/18 22:16 (Zaroxolyn) 10 mg DAILY PO 02/24/18 09:00 02/24/18 08:42 (Singulair) 10 mg HS PO 02/23/18 21:00 02/24/18 22:17 (Protonix) 40 mg DAILY PO 02/24/18 09:00 02/24/18 08:40 (Roxicodone) 30 mg Q4H PRN PO 02/23/18 15:00 02/25/18 00:34 (Mirapex) 0.5 mg HS PO 02/23/18 21:00 02/24/18 22:18 (Lasix Inj) 40 mg BID@,18 IV PUSH 02/23/18 18:00 02/24/18 17:12 (Catapres) 0.1 mg Q6H PRN PO 02/23/18 16:30 (KCl) 20 meq Q12HR PO 02/24/18 21:00 02/24/18 22:22 (Neurontin) 300 mg Q8H PO 02/24/18 17:00 02/25/18 00:21 (Trandate) 200 mg Q8H PO 02/24/18 17:00 02/25/18 00:21 (Zanaflex) 2 mg Q8H PO 02/24/18 17:00 02/25/18 00:22 (Elavil) 25 mg HS PO 02/24/18 21:00 02/24/18 22:22 (Ativan) 1 mg BID PRN PO 02/24/18 13:00 Vital Signs / I&O Vital Signs Date Time Temp Pulse Resp B/P (MAP) Pulse Ox O2 Delivery O2 Flow Rate FiO2 02/25/18 04:00 97.7 60 18 108/53 (71) 95 02/25/18 00:00 97.1 60 18 114/55 (74) 92 02/24/18 21:05 93 21.00 02/24/18 21:00 60 02/24/18 20:15 96.3 61 18 131/61 (84) 98 02/24/18 15:50 97.2 60 20 130/62 (84) 96 02/24/18 15:50 97.2 60 20 130/62 (84) 96 02/24/18 15:01 59 02/24/18 11:45 98.7 60 20 108/59 (75) 97 02/24/18 07:50 97.0 59 19 119/61 (80) 96 I/O 02/24/18 02/24/18 02/24/18 02/25/18 02/25/18 02/25/18 07:00 15:00 23:00 07:00 15:00 23:00 Intake Total 930 ml 780 ml 120 ml Output Total 1750 ml 400 ml Balance 930 ml -970 ml -280 ml Intake Oral 930 ml 780 ml 120 ml Output Urine Total 1750 ml 400 ml # Voids 3 # Bowel Movements 0 0 Physical Exam GENERAL: This is a well-nourished, well-developed patient, in no apparent distress. CARDIOVASCULAR: Regular rate and rhythm without murmurs, gallops, or rubs. RESPIRATORY: slight wheezing GASTROINTESTINAL: Abdomen soft, non-tender, nondistended. Normal active bowel sounds MUSCULOSKELETAL: Extremities without clubbing, cyanosis, or edema. NEURO: Alert & Oriented x4 to person, place, time, situation. Moves all ext x4 Laboratory Laboratory Tests Test 02/25/18 05:45 Blood Urea Nitrogen 25 MG/DL Creatinine 1.40 MG/DL Random Glucose 142 MG/DL Calcium Level 8.1 MG/DL Sodium Level 127 MEQ/L Potassium Level 3.2 MEQ/L Chloride Level 86 MEQ/L Carbon Dioxide Level 34.6 MEQ/L Anion Gap 6 MEQ/L Estimat Glomerular Filtration Rate 36 ML/MIN Imaging Last Impressions Chest X-Ray 02/23/18 1125 Signed Impressions: Service Date/Time: Friday, February 23, 2018 11:28 - CONCLUSION: Mild consolidation and small effusion at the left lung base. Jude Xie MD Assessment and Plan Problem List: (1) CHF exacerbation ICD Codes: I50.9 - Heart failure, unspecified Status: Acute Plan: Seems compensated and Cr. bumped up, will change to oral lasix. LVEF 50- 55% (2) Hyponatremia ICD Codes: E87.1 - Hypo-osmolality and hyponatremia Plan: Treatment per medical team. (3) Weakness ICD Codes: R53.1 - Weakness Plan: Likely will need SNF Assessment and Plan Stable from a cardiac standpoint but certainly will need aggressive rehab/PT; will sign off at this time, pls call with questions. She should f/u with dr. Lema in 2-3 weeks. Jaspal Walker MD Feb 25, 2018 07:50
[2018-02-25] MEDS: INSULIN ASPART SUPPLEMENTAL SCALE SQ SCH ×4 (08:04→21:14)
[2018-02-25] MEDS: POLYETHYLENE GLYCOL 17 GM PKG PO SCH (09:00)
[2018-02-25] MEDS ORDERED: RESP: ALBUTEROL 2.5 MG/IPRATROPIUM 0.5 MG NEB (PRN) NEB (09:00)
[2018-02-25] MEDS: APIXABAN 5 MG TABLET PO SCH ×2 (09:25→21:08)
[2018-02-25] MEDS: SODIUM CHLORIDE 0.9% FLUSH 10 ML FLUSH IV FLUSH SCH ×2 (09:25→21:08)
[2018-02-25] MEDS: PANTOPRAZOLE SOD 40 MG DELAYED RELEASE TAB PO SCH (09:27)
[2018-02-25] MEDS: POTASSIUM CHLORIDE 20 MEQ CONTROLLED RELEASE TAB PO SCH ×2 (09:27→21:08)
[2018-02-25] MEDS: DOCUSATE SODIUM 100 MG CAP PO SCH ×2 (09:27→21:09)
[2018-02-25] MEDS: INSULIN DETEMIR 100 UNITS/ML VIAL SQ SCH ×2 (09:49→21:14)
--- NOTE | 2018-02-25 11:40 | HHI.PR ---
Subjective Remarks Patient seen today in follow-up for acute exacerbation of diastolic heart failure. Some wheezes today and shortness of breath patient No bowel movement Objective Vitals Vital Signs Date Time Temp Pulse Resp B/P (MAP) Pulse Ox O2 Delivery O2 Flow Rate FiO2 02/25/18 10:29 18 02/25/18 09:09 97 21 02/25/18 07:50 97.9 60 20 106/69 (81) 91 02/25/18 04:00 97.7 60 18 108/53 (71) 95 02/25/18 00:00 97.1 60 18 114/55 (74) 92 02/24/18 21:05 93 21.00 02/24/18 21:00 60 02/24/18 20:15 96.3 61 18 131/61 (84) 98 02/24/18 15:50 97.2 60 20 130/62 (84) 96 02/24/18 15:50 97.2 60 20 130/62 (84) 96 02/24/18 15:01 59 02/24/18 11:45 98.7 60 20 108/59 (75) 97 I/O 02/24/18 02/24/18 02/24/18 02/25/18 02/25/18 02/25/18 07:00 15:00 23:00 07:00 15:00 23:00 Intake Total 930 ml 780 ml 120 ml Output Total 1750 ml 400 ml Balance 930 ml -970 ml -280 ml Intake Oral 930 ml 780 ml 120 ml Output Urine Total 1750 ml 400 ml # Voids 3 # Bowel Movements 0 0 Result Diagram: 02/24/18 0635 02/25/18 0545 Objective Remarks GENERAL: This is a well-nourished, well-developed patient, complaining of some shortness of breath and wheezing CARDIOVASCULAR: Regular rate and rhythm without murmurs, gallops, or rubs. RESPIRATORY: Bilateral scattered wheezes GASTROINTESTINAL: Abdomen soft, non-tender, nondistended. Normal active bowel sounds MUSCULOSKELETAL: Extremities without clubbing, cyanosis, or edema. NEURO: Alert & Oriented x4 to person, place, time, situation. Moves all ext x4 A/P Problem List: (1) Weakness ICD Code: R53.1 - Weakness Plan: Multifactorial due to likely congestive heart failure exacerbation and hyponatremia We will continue with following up electrolytes and his volume status is corrected PT evaluation We will review medications for polypharmacy Ativan has been changed to as needed , and the doses of Ativan and Elavil have been lowered (2) Constipation ICD Code: K59.00 - Constipation, unspecified Plan: Continue with bowel regimen (3) DM2 (diabetes mellitus, type 2) ICD Code: E11.9 - Type 2 diabetes mellitus without complications Plan: Continue with diabetic management with insulin and diabetic diet (4) Hyponatremia ICD Code: E87.1 - Hypo-osmolality and hyponatremia Plan: Patient appears to be within normal volume status after diuresis We will check osmolarities (5) CHF exacerbation ICD Code: I50.9 - Heart failure, unspecified Status: Acute Plan: Continue with intake and output, follow-up diuretic management Continue surveillance of his electrolytes Likely acute diastolic heart failure exacerbation, improved after diuresis (6) SOB (shortness of breath) ICD Code: R06.02 - Shortness of breath Plan: Continue with duo nebs as needed follow-up chest x-ray Discharge Planning Likely to [facility] facility Kathy Lanier MD Feb 25, 2018 11:40
[2018-02-25] MEDS ORDERED: LACTULOSE SYRUP 20 GM/30 ML CUP PO ONE (12:00)
--- NOTE | 2018-02-25 13:22 | RADRPT ---
EXAM DATE/TIME: 02/25/2018 12:26 [place] COMPARISON: No previous studies available for comparison. INDICATIONS : Short of breath & right lower rib pain post fall. MEDICAL HISTORY : Myocardial infarction. Congestive heart failure. Hypercholesterolemia. Diabetic. Hiatial hernia. GERD . Arthritis. SURGICAL HISTORY : Tonsillectomy. Cholecystectomy. Cardiac stent. ENCOUNTER: Subsequent ACUITY: 4 - 6 days PAIN SCORE: 5/10 LOCATION: Right lower chest FINDINGS: PA and lateral views of the chest demonstrate blunting of the posterior costophrenic angle characteri stic of a area pleural-parenchymal scarring or effusion. Lungs are otherwise clear. Accounting for th e degree of inspiration, heart size is normal. Loop recorder projects over the left heart. Atheroscle rotic calcification of the aortic arch. Fracture through the lateral aspect of rib #8 on the right. No pneumothorax. Age-indeterminate wedge deformity of a mid thoracic vertebral body CONCLUSION: 1. Right eighth lateral rib fracture. 2. Age-indeterminate wedge deformity of a mid lower thoracic vertebral body, possibly #8. 3. Posterior effusion versus pleural parenchymal scarring Romeo Berger MD on February 25, 2018 at 13:17 Board Certified Radiologist. This report was verified electronically.
[2018-02-25] MEDS ORDERED: RESP: ALBUTEROL 2.5 MG/IPRATROPIUM 0.5 MG NEB (SCH) NEB (14:00)
[2018-02-25 14:38] LABS: OSMOLALITY,URINE 307 MOSM/KG (300-1300)
[2018-02-25 14:42] LABS: SODIUM,RANDOM URINE 40 MEQ/L
[2018-02-25] MEDS ORDERED: POLY17S PO (14:45)
[2018-02-25] MEDS ORDERED: LORA-475 PO (14:45)
[2018-02-25] MEDS ORDERED: Albuterol-Ipratropium Neb NEB (14:45)
[2018-02-25] MEDS ORDERED: AMIT25TA9 PO (14:45)
[2018-02-25] MEDS ORDERED: DOCU1CAP39 PO (14:45)
[2018-02-25] MEDS ORDERED: OXYC-395 PO (14:45)
[2018-02-25] MEDS ORDERED: MAGNESIUM CITRATE SOLN 300 ML BTL PO ONE (15:00)
[2018-02-25] MEDS: ONDANSETRON HCL 4 MG/2 ML VIAL IVP PRN (17:48)
[2018-02-25] MEDS: MONTELUKAST SODIUM 10 MG TAB PO SCH (21:08)
[2018-02-25] MEDS: AMITRIPTYLINE HCL 25 MG TAB PO SCH (21:09)
[2018-02-25] MEDS: ATORVASTATIN 20 MG TAB PO SCH (21:09)
[2018-02-25] MEDS: PRAMIPEXOLE DIHYDROCHLORIDE 0.25 MG TAB PO SCH (21:09)
[2018-02-26] VITALS: BP 148/92; PULSE 76; RESP 20; TEMP 98.9; O2SAT 98
[2018-02-26] MEDS: LABETALOL HCL 200 MG TAB PO SCH ×2 (01:00→09:34)
[2018-02-26 04:00] VITALS: BP 113/53; PULSE 84; RESP 20; TEMP 98.4; O2SAT 95
[2018-02-26 07:15] VITALS: PULSE 86
[2018-02-26 07:30] VITALS: BP 118/56; PULSE 86; RESP 16; TEMP 98.1; O2SAT 96
[2018-02-26 07:44] VITALS: O2SAT 94
[2018-02-26] MEDS: INSULIN ASPART SUPPLEMENTAL SCALE SQ SCH ×2 (08:00→11:47)
[2018-02-26] MEDS: POLYETHYLENE GLYCOL 17 GM PKG PO SCH (09:00)
[2018-02-26] MEDS: DOCUSATE SODIUM 100 MG CAP PO SCH (09:00)
[2018-02-26] MEDS: APIXABAN 5 MG TABLET PO SCH (09:33)
[2018-02-26] MEDS: GABAPENTIN 300 MG CAP PO SCH (09:33)
[2018-02-26] MEDS: POTASSIUM CHLORIDE 20 MEQ CONTROLLED RELEASE TAB PO SCH (09:34)
[2018-02-26] MEDS: PANTOPRAZOLE SOD 40 MG DELAYED RELEASE TAB PO SCH (09:34)
[2018-02-26] MEDS: ONDANSETRON HCL 4 MG/2 ML VIAL IVP PRN (09:34)
[2018-02-26] MEDS: SODIUM CHLORIDE 0.9% FLUSH 10 ML FLUSH IV FLUSH SCH (09:35)
[2018-02-26] MEDS: INSULIN DETEMIR 100 UNITS/ML VIAL SQ SCH (10:27)
--- NOTE | 2018-02-26 10:46 | HHI.DS ---
Discharge Summary Admission Date Feb 25, 2018 at 11:35 Discharge Date: Feb 23, 2018 Admitting Diagnosis CHF exacerbation/hyponatremia (1) Weakness ICD Code: R53.1 - Weakness (2) Constipation ICD Code: K59.00 - Constipation, unspecified (3) DM2 (diabetes mellitus, type 2) ICD Code: E11.9 - Type 2 diabetes mellitus without complications (4) Hyponatremia ICD Code: E87.1 - Hypo-osmolality and hyponatremia (5) CHF exacerbation ICD Code: I50.9 - Heart failure, unspecified Status: Acute (6) SOB (shortness of breath) ICD Code: R06.02 - Shortness of breath (7) Rib fracture ICD Code: S22.39XA - Fracture of one rib, unspecified side, initial encounter for closed fracture Procedures None Brief History - From Admission This patient is a 82-year-old female comes to emergency room complaining of increased shortness of breath for several weeks worse over the last 48 hours. Patient says she was in the [facility] in [facility] and had some increased shortness of breath and dyspnea on exertion. She noted that she was hyponatremic at that time. She did go home and had a fall at home with a right- sided rib fracture. She was seen in the emergency room on Thursday went home. She has not been feeling well. Here she has been short of breath and dyspnea on exertion with a lab studies that confirm hyponatremia. Patient is edematous. She reports a history of cardiac disease with a cardiac pacemaker and stenting and follow-up with a local otolaryngology nurse at the [facility]. Patient been recommended for further evaluation and treatment and observation to the hospital with hyponatremia of 128 and weakness as well as a chest x-ray and BNP which are concerning for congestive heart failure. CBC/BMP: 02/24/18 0635 02/25/18 0545 Significant Findings Laboratory Tests Test 02/23/18 11:45 02/23/18 13:00 02/23/18 17:30 02/23/18 23:50 Red Blood Count 3.39 MIL/MM3 (4.00-5.30) Hemoglobin 9.9 GM/DL (11.6-15.3) Hematocrit 30.3 % (35.0-46.0) Neutrophils % (Manual) 71 % (16-70) Ovalocytes 1+ (NORMAL) Prothrombin Time 12.1 SEC (9.8-11.6) Random Glucose 114 MG/DL (74-106) Albumin 2.9 GM/DL (3.4-5.0) Alkaline Phosphatase 158 U/L (45-117) Sodium Level 128 MEQ/L (136-145) Chloride Level 91 MEQ/L (98-107) Estimat Glomerular Filtration Rate 62 ML/MIN (>89) Troponin I LESS THAN 0.02 NG/ML LESS THAN 0.02 NG/ML LESS THAN 0.02 NG/ML B-Type Natriuretic Peptide 971 PG/ML (0-100) Urine Protein 30 mg/dL (NEG-TRACE) Test 02/24/18 06:35 02/25/18 05:45 02/25/18 12:25 Red Blood Count 3.18 MIL/MM3 (4.00-5.30) Hemoglobin 9.4 GM/DL (11.6-15.3) Hematocrit 28.6 % (35.0-46.0) Monocytes (%) (Auto) 8.2 % (0.0-8.0) Eosinophils (%) (Auto) 6.2 % (0.0-4.0) Creatinine 1.10 MG/DL (0.50-1.00) 1.40 MG/DL (0.50-1.00) Calcium Level 8.3 MG/DL (8.5-10.1) 8.1 MG/DL (8.5-10.1) Sodium Level 128 MEQ/L (136-145) 127 MEQ/L (136-145) Potassium Level 3.3 MEQ/L (3.5-5.1) 3.2 MEQ/L (3.5-5.1) Chloride Level 89 MEQ/L (98-107) 86 MEQ/L (98-107) Carbon Dioxide Level 32.7 MEQ/L (21.0-32.0) 34.6 MEQ/L (21.0-32.0) Estimat Glomerular Filtration Rate 48 ML/MIN (>89) 36 ML/MIN (>89) Blood Urea Nitrogen 25 MG/DL (7-18) Random Glucose 142 MG/DL (74-106) Serum Osmolality 274 MOSM/KG (275-295) Imaging Last Impressions Chest X-Ray 02/25/18 0000 Signed Impressions: Service Date/Time: February 12:26 - CONCLUSION: 1. Right eighth lateral rib fracture. 2. Age-indeterminate wedge deformity of a mid lower thoracic vertebral body, possibly #8. 3. Posterior effusion versus pleural parenchymal scarring Romeo Berger MD PE at Discharge GENERAL: This is a well-nourished, well-developed patient, complaining of some shortness of breath and wheezing CARDIOVASCULAR: Regular rate and rhythm without murmurs, gallops, or rubs. RESPIRATORY: Bilateral scattered wheezes GASTROINTESTINAL: Abdomen soft, non-tender, nondistended. Normal active bowel sounds MUSCULOSKELETAL: Extremities without clubbing, cyanosis, or edema. NEURO: Alert & Oriented x4 to person, place, time, situation. Moves all ext x4 Pt update on day of discharge Patient doing much better today. Discharge plan discussed with patient. Good bowel movement overnight Hospital Course This patient is an 82-year-old female with a history of hyponatremia and shortness of breath. She had a fall at home and was evaluated for volume overload and hyponatremia. She appears to have congestive heart failure related to right-sided heart failure from probable underlying emphysema/COPD. She was seen by cardiology. She was successfully diuresed. She did have a rib fracture after a fall and this was treated with supportive care. Patient's Ativan and Elavil were decreased to improve her side effect profile. She has chronic constipation but this improved with medications. Pt Condition on Discharge: Good Discharge Disposition: Discharge to SNF Discharge Time: <= 30 minutes Discharge Instructions DIET: Follow Instructions for: Heart Healthy Diet Activities you can perform: Regular-No Restrictions Follow up Referrals: PCP Follow-up - 1 Week New Medications: Amitriptyline (Amitriptyline) 25 Mg Tab 25 MG PO HS for Anxiety, #31 TAB Docusate Sodium (Dok) 100 Mg Cap 100 MG PO BID for Constipation, #60 CAP Lorazepam (Ativan) 2 Mg Tab 1 MG PO BID PRN for ANXIETY AND/OR AGITATION, #62 TAB Oxycodone (Oxycodone) 10 Mg Tab 30 MG PO Q4H PRN for PAIN, #60 TAB Polyethylene Glycol 3350 Powder (Polyethylene Glycol 3350 Powder) 17 Gram Pow 17 GM PO DAILY for Constipation, #31 PACKET [Albuterol-Ipratropium Neb] () 1 AMPULE NEBU 1 AMPULE NEB Q2HR NEB PRN for DYSPNEA, #90 Continued Medications: Amitriptyline (Amitriptyline) 50 Mg Tab 50 MG PO HS for Control Depression, #30 TAB 0 Refills Apixaban (Eliquis) 5 Mg Tab 5 MG PO BID for Blood Clot Prevention, #60 TAB 0 Refills Atorvastatin (Lipitor) 20 Mg Tab 20 MG PO HS for Cholesterol Management, #30 TAB 0 Refills Budesonide-Formoterol Inh (Symbicort Inh) 80-4.5 Mcg/Act Aero Unknown Dose INH Q12HR for Asthma Management, #1 INHALER 0 Refills Furosemide (Lasix) 20 Mg Tab 20 MG PO DAILY, #30 TAB 0 Refills Gabapentin (Gabapentin) 300 Mg Cap 300 MG PO TID, #90 CAP 0 Refills Insulin Glargine Inj (Lantus Inj) 1,000 Unit/10 Ml Vial 10 UNITS SQ BID for Blood Sugar Management, VIAL 0 Refills Labetalol (Labetalol) 200 Mg Tab 200 MG PO TID for Blood Pressure Management, TAB 0 Refills Lorazepam (Ativan) 2 Mg Tab 2 MG PO BID PRN for ANXIETY AND/OR AGITATION, TAB 0 Refills Metolazone (Metolazone) 10 Mg Tab 10 MG PO DAILY, #30 TAB 0 Refills Montelukast (Singulair) 10 Mg Tab 10 MG PO HS, #30 TAB 0 Refills Ondansetron (Zofran) 8 Mg Tab 8 MG PO TID for Nausea/Vomiting, TAB 0 Refills Pantoprazole (Pantoprazole) 40 Mg Tab 40 MG PO DAILY for Reflux, #30 TAB 0 Refills Potassium Chloride ER (Klor-Con 10) 10 Meq Tab 20 MEQ PO DAILY for Electrolyte Replacement, #30 TAB 0 Refills Pramipexole (Pramipexole) 0.5 Mg Tab 0.5 MG PO HS for Parkinson Disease Mgmt, #30 TAB 0 Refills Tizanidine (Tizanidine) 2 Mg Tab 2 MG PO TID for Muscle Spasm, TAB 0 Refills [Iron] () Discontinued Medications: Oxycodone (Oxycodone) 30 Mg Tab 30 MG PO Q4-6H PRN for PAIN, TAB 0 Refills Kathy Lanier MD Feb 26, 2018 10:46
[2018-02-26 12:00] VITALS: BP 131/57; PULSE 66; RESP 18; TEMP 96; O2SAT 97
== END 2018-02-26 13:55 | DRG 292 ==
LOC: PHED 11:15 → PHEDA 12:37 → PH3B 13:30 → OBSVTOIN 02-25 11:35
PROVIDERS: ADMIT Hospitalist; ATTEND Hospitalist
DX: I11.0 Hypertensive heart disease with heart failure (principal); E87.1 Hypo-osmolality and hyponatremia; E11.51 Type 2 diabetes mellitus with diabetic peripheral angiopathy without gangrene; I48.91 Unspecified atrial fibrillation; I50.33 Acute on chronic diastolic (congestive) heart failure; M19.90 Unspecified osteoarthritis, unspecified site; K21.9 Gastro-esophageal reflux disease without esophagitis; E78.00 Pure hypercholesterolemia, unspecified; I25.10 Atherosclerotic heart disease of native coronary artery without angina pectoris; G89.4 Chronic pain syndrome; E87.6 Hypokalemia; K59.00 Constipation, unspecified; J44.9 Chronic obstructive pulmonary disease, unspecified; R06.02 Shortness of breath; R06.2 Wheezing; R53.1 Weakness; W19.XXXD Unspecified fall, subsequent encounter; I25.2 Old myocardial infarction; Z95.0 Presence of cardiac pacemaker; Z95.5 Presence of coronary angioplasty implant and graft; S22.31XD Fracture of one rib, right side, subsequent encounter for fracture with routine healing; Z79.4 Long term (current) use of insulin
CPT/HCPCS: 71045; 71046; 80048; 80053; 81001; 82550; 82552; 82948; 83880; 83930; 83935; 84300; 84484; 85007; 85025; 85027; 85610; 85730; 87040; 93005; 93306; 94150; 94664; 96372; 96374; 96375; G0378; G8987-GP; G8988-GP; J1815; J1940; J2405

== ENCOUNTER 2018-06-10 16:03 | Observation (INO) ==
[2018-06-10] MEDS ORDERED: Sodium Chlor 0.9% Inj 500 ML IV.SIG ONE (16:12)
[2018-06-10 16:49] LABS: Baso % (Auto) 0.6 % (0.0-2.0); Eos # (Auto) 0.4 th/mm3 (0.0-0.4); Eos % (Auto) 5.3 % (0.0-4.0); Hemoglobin 10.2 gm/dL (11.6-15.3); Lymph # (Auto) 1.7 th/mm3 (1.0-4.8); Lymph % (Auto) 21.7 % (9.0-44.0); Mean Corpuscular HGB Conc 34.2 % (32.0-36.0); Mean Corpuscular Hemoglobin 31.9 pg (27.0-34.0); Mean Corpuscular Volume 93.2 fL (80.0-100.0); Mean Platelet Volume 8.2 fL (7.0-11.0); Mono # (Auto) 0.6 th/mm3 (0.0-0.9); Mono % (Auto) 8.3 % (0.0-8.0); Neut # (Auto) 5.1 th/mm3 (1.8-7.7); Neut % (Auto) 64.1 % (16.0-70.0); Platelet Count 227 th/mm3 (150-450); Red Blood Count 3.21 mil/mm3 (4.00-5.30); White Blood Count 7.8 th/mm3 (4.0-11.0)
[2018-06-10 16:55] LABS: Chloride 100 meq/L (98-107); Potassium 5.1 meq/L (3.5-5.1); Sodium 134 meq/L (136-145)
[2018-06-10 16:59] LABS: Albumin 2.8 g/dL (3.4-5.0); Anion Gap 6 meq/L (5-15); Blood Urea Nitrogen 41 mg/dL (7-18); Calcium 8.1 mg/dL (8.5-10.1); Carbon Dioxide 28.3 meq/L (21.0-32.0); Glucose,Random 341 mg/dL (74-106)
--- NOTE | 2018-06-10 17:00 | XR ---
EXAM DATE: 06/10/2018 4:45 PM EDT AGE/SEX: 82 years / Female INDICATIONS: Dizziness; possible syncopal episode. CLINICAL DATA: This is the patient's initial encounter. Patient reports that signs and symptoms have been present for 1 day and indicates a pain score of 0/10. MEDICAL/SURGICAL HISTORY: . Myocardial infarction. Congestive heart failure. Hypercholesterolem ia. Diabetic. . Cardiac stent. COMPARISON: [facility], CHEST SINGLE AP, 11/23/2012. [facility], CHEST PA & LAT, 02/25/2018. . FINDINGS: A single AP view of the chest demonstrates the lungs to be symmetrically aerated without evidence of mass, infiltrate or effusion. Focal eventration of the right hemidiaphragm is again noted. The cardi omediastinal contours are unremarkable. Osseous structures are intact. CONCLUSION: Stable chest without evidence of acute cardiopulmonary process. Electronically signed by: Pierre Whitney MD 06/10/2018 4:59 PM EDT
[2018-06-10 17:01] LABS: Activated Partial Thrombo Time 26.1 sec (24.3-30.1); INR 1.1 Ratio; Prothrombin Time 11.4 sec (9.8-11.6)
[2018-06-10 17:02] LABS: Alanine Aminotransferase 22 U/L (10-53); Aspartate Aminotransferase 17 U/L (15-37)
[2018-06-10 17:03] LABS: Glomerular Filtration Rate 24 mL/min (>89)
[2018-06-10 17:04] LABS: Total Protein 6.6 g/dL (6.4-8.2)
[2018-06-10 17:05] LABS: Alkaline Phosphatase 102 U/L (45-117)
[2018-06-10 17:11] LABS: Creatine Kinase 97 U/L (26-192)
--- NOTE | 2018-06-10 17:11 | CT ---
EXAM DATE: 06/10/2018 4:53 PM EDT AGE/SEX: 82 years / Female INDICATIONS: Hypotension. Altered mental status. CLINICAL DATA: This is the patient's initial encounter. Patient reports that signs and symptoms have been present for 1 day and indicates a pain score of 0/10. MEDICAL/SURGICAL HISTORY: Cardiovascular disease. Diabetes. Gastroesophageal reflux disease. Hyp ertension. Carotid endarterectomy. RADIATION DOSE: 52.16 CTDI (mGy) COMPARISON: No prior exams available for comparison. TECHNIQUE: CT of the head without contrast. Using automated exposure control and adjustment of the mA and/or kV according to patient size, radiation dose was kept as low as reasonably achievable to ob tain optimal diagnostic quality images. DICOM format image data is available electronically for revi ew and comparison. FINDINGS: Cerebrum: Focal hypodensity is identified in the left frontal lobe extending from the cortical surfa ce to the frontal horn. The frontal horn of the left lateral ventricle is asymmetrically enlarged com pared to the right. There is no evidence of mass effect or hemorrhage. Cerebral hemispheres are other mistry unremarkable with no additional areas of altered density. Posterior Fossa: The cerebellum and brainstem are intact. The 4th ventricle is midline. The cerebe llopontine angle is unremarkable. Extracranial: The visualized portion of the orbits is intact. Skull: The calvaria is intact. No evidence of skull fracture. CONCLUSION: 1. Left frontal hypodensity without evidence of significant mass effect or hemorrhage. This may repr esent a subacute to chronic infarct. Further characterization with MRI should be considered. 2. No other significant abnormality. Electronically signed by: Pierre Whitney MD 06/10/2018 5:09 PM EDT
[2018-06-10 17:32] LABS: Bilirubin,Urine Negative (Negative); Clarity,Urine Clear (Clear); Color,Urine Yellow (Yellw/Straw); Glucose,Urine (UA) 250 mg/dL (Negative); Leukocyte Esterase,Urine Trace (Negative); Nitrite,Urine Positive (Negative); PH,Urine 5.5 (5.0-8.5); Urobilinogen,Urine 0.2 mg/dL (Less than 2)
[2018-06-10 17:36] LABS: Bacteria,Urine Many /hpf; RBC,Urine 0-3 /hpf (0-3); Squamous Epithelial Cell,Urine 0-5 /hpf (0-5)
--- NOTE | 2018-06-10 18:55 | US ---
EXAM DATE: 06/10/2018 6:41 PM EDT AGE/SEX: 82 years / Female INDICATIONS: Aneurysm. CLINICAL DATA: This is the patient's initial encounter. Patient reports that signs and symptoms have been present for 4 - 6 days and indicates a pain score of 0/10. MEDICAL/SURGICAL HISTORY: Aneurysm, abdominal. Stroke. Gastroesophageal reflux disease. Diab etes. Femoral artery stenosis. Hypertension. Pneumonia. Carotid endarterectomy. Cholecystectomy. T ubal ligation. COMPARISON: No prior exams available for comparison. MEASUREMENTS (AP x TRANSVERSE): Proximal:__1.4 cm Mid:__1.3 cm Distal:__1.0 cm Right Common Iliac:__0.9 cm Left Common Iliac:__0.8 cm FINDINGS: Aorta: The visualized portion of the abdominal aorta has normal configuration and size. There are po rtions of the mid abdominal aorta which are not visualized due to obscuration from bowel gas. Other: None. CONCLUSION: 1. Normal dimension abdominal aorta. Electronically signed by: Saroj Lau MD 06/10/2018 6:54 PM EDT
--- NOTE | 2018-06-10 20:02 | ED ---
HPI General Chief complaint: Weakness Stated complaint: Low BP Time Seen by Provider: 06/10/18 16:08 Source: patient, family and EMS Mode of arrival: EMS Limitations: no limitations History of Present Illness HPI narrative: Patient is an 82-year-old female who was brought in by EMS after near syncopal episodes. She was apparently at a doctor's office checking in when she was found to be weak, and feeling as if she was going to pass out. She did not fall to the ground, she was sitting in a chair. Per EMS, she was going in and out of consciousness. EMS states her blood pressure was in the 60s systolic on arrival. They did give her fluids on the way to the hospital. She says she feels overall weak, she has some pain to her left side of her abdomen. 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 She denies any chest pain or shortness of breath. She has not had any fever or chills. Granddaughter states they have been having trouble controlling her blood pressure lately as well as her sugar. Related Data Home Medications Medication Instructions Recorded Confirmed amitriptyline 25 mg PO DAILY 06/10/18 06/10/18 apixaban [Eliquis] 5 mg PO BID 06/10/18 06/10/18 atorvastatin 20 mg PO DAILY 06/10/18 06/10/18 budesonide-formoterol [Symbicort] 2 puff INHALATION BID 06/10/18 06/10/18 furosemide [Lasix] 20 mg PO DAILY 06/10/18 06/10/18 gabapentin 300 mg PO TID 06/10/18 06/10/18 labetalol 100 mg PO QAM 06/10/18 06/10/18 lorazepam [Ativan] 2 mg PO DAILY 06/10/18 06/10/18 montelukast 10 mg PO QPM 06/10/18 06/10/18 ondansetron HCl [Zofran] 4 mg PO TID-QID PRN 06/10/18 06/10/18 oxycodone 30 mg PO Q4-6H PRN 06/10/18 06/10/18 pantoprazole 40 mg PO DAILY 06/10/18 06/10/18 potassium chloride 20 meq PO DAILY 06/10/18 06/10/18 pramipexole 0.5 mg PO QPM 06/10/18 06/10/18 sucralfate [Carafate] 1 g PO QID 06/10/18 06/10/18 tizanidine 2 mg PO TID PRN 06/10/18 06/10/18 Allergies Allergy/AdvReac Type Severity Reaction Status Date / Time morphine Allergy Severe HIVES Verified 06/10/18 20:05 penicillin G Allergy Severe HIVES Verified 06/10/18 20:05 Review of Systems Except as stated in HPI: all other systems reviewed are negative Constitutional Denies chills, Denies fever(s) and Denies headache(s) ENT Denies dizziness Cardiovascular Denies chest pain and Denies edema Respiratory Denies dyspnea and Denies dyspnea on exertion Gastrointestinal Denies nausea and Denies vomiting Musculoskeletal Denies myalgias and Denies arthralgias Integumentary/Breasts Denies change in pigmentation and Denies lesions Neurologic Denies weakness [facility] Medical History Medical History Aneurysm (Acute) CVA (cerebral vascular accident) (Acute) Diabetes (Acute) Femoral artery stenosis (Acute) GERD (gastroesophageal reflux disease) (Acute) Hypertension (Acute) Pneumonia (Acute) Surgical History Surgical History H/O endarterectomy (Acute) History of cholecystectomy (Acute) History of tubal ligation (Acute) Social History Social History Smoking Status: Never smoker How Often Do You Have a Drink Containing Alcohol: Never Recent Travel in [facility] within the Last 8 Weeks: No Recent Out of Country Travel within the Last 8 Weeks: No Immunization History Tetanus Immunization: Unsure Hx Influenza Vaccine This Season: Yes Exam Narrative Exam Narrative: GENERAL: Awake and alert, in no acute distress. SKIN: Focused skin assessment warm/dry. HEAD: Atraumatic. Normocephalic. EYES: Pupils equal and round. No scleral icterus. ENT: Mucous membranes pink and moist. NECK: Trachea midline. No JVD. CARDIOVASCULAR: Regular rate and rhythm. No murmur appreciated. RESPIRATORY: No accessory muscle use. Clear to auscultation. Breath sounds equal bilaterally. GASTROINTESTINAL: Abdomen soft, non-tender, nondistended. MUSCULOSKELETAL: No obvious deformities. No clubbing. No cyanosis. No edema. NEUROLOGICAL: Awake and alert. No obvious cranial nerve deficits. Motor grossly within normal limits. Normal speech. PSYCHIATRIC: Appropriate mood and affect; insight and judgment normal. Course Hospital Course: IV established, labs sent. CT head ordered. Given IV fluids. Reevaluation(s) Reevaluation #1: Patient improving, resting comfortably. Time: 19:13 Initial Documented Vital Signs Temperature 98.4 F 06/10/18 16:13 Pulse Rate 68 06/10/18 16:13 Respiratory Rate 16 06/10/18 16:13 Blood Pressure 110/52 L 06/10/18 16:13 Pulse Oximetry 95 06/10/18 16:13 Last Documented Vital Signs Temperature 98.4 F 06/10/18 16:13 Pulse Rate 66 06/10/18 21:04 Respiratory Rate 16 06/10/18 21:04 Blood Pressure 117/66 06/10/18 21:04 Pulse Oximetry 96 06/10/18 19:13 Medical Decision Making [facility] Narrative Medical decision making narrative: Patient is an 82-year-old female comes in due to generalized weakness and near syncopal episodes. IV established, labs sent. Labs show worsening kidney function with a creatinine of 2. Blood sugar is elevated. Urinalysis is positive for UTI. Given IV fluids, with improvement of her blood pressure. Given a dose of Rocephin. CT of the head performed shows a possible subacute versus chronic stroke, MRI of the brain is suggested. This was ordered. Patient will be admitted for further management. Differential Diagnosis Differential Diagnosis: UTI versus pneumonia versus dehydration versus acute kidney injury Medical Records Medical records reviewed: Yes I reviewed the patient's medical records. Lab Data Lab results reviewed: Yes I reviewed the patient's lab results. Result diagrams: 06/10/18 16:30 06/10/18 16:30 Lab Results 06/10/18 06/10/18 06/10/18 Range/Units 16:26 16:30 16:30 CBC w Diff Auto diff final WBC 7.8 (4.0-11.0) th/mm3 RBC 3.21 L (4.00-5.30) mil/mm3 Hgb 10.2 L (11.6-15.3) gm/dL Hct 30.0 L (35.0-46.0) % MCV 93.2 (80.0-100.0) fL MCH 31.9 (27.0-34.0) pg MCHC 34.2 (32.0-36.0) % RDW 15.0 (11.6-17.2) % Plt Count 227 (150-450) th/mm3 MPV 8.2 (7.0-11.0) fL Neut % (Auto) 64.1 (16.0-70.0) % Lymph % (Auto) 21.7 (9.0-44.0) % [place] % (Auto) 8.3 H (0.0-8.0) % Eos % (Auto) 5.3 H (0.0-4.0) % Baso % (Auto) 0.6 (0.0-2.0) % Neut # (Auto) 5.1 (1.8-7.7) th/mm3 Lymph # (Auto) 1.7 (1.0-4.8) th/mm3 [place] # (Auto) 0.6 (0.0-0.9) th/mm3 Eos # (Auto) 0.4 (0.0-0.4) th/mm3 Baso # (Auto) 0.0 (0.0-0.2) th/mm3 WBC Differential . Differential Comment . PT 11.4 (9.8-11.6) sec INR 1.1 Ratio APTT 26.1 (24.3-30.1) sec Sodium (136-145) meq/L Potassium (3.5-5.1) meq/L Chloride (98-107) meq/L Carbon Dioxide (21.0-32.0) meq/L Anion Gap (5-15) meq/L BUN (7-18) mg/dL Creatinine (0.50-1.00) mg/dL Estimated GFR (>89) mL/min POC Glucose 415 H (68-110) mg/dl Random Glucose (74-106) mg/dL Lactic Acid (0.4-2.0) mmol/L Calcium (8.5-10.1) mg/dL Total Bilirubin (0.2-1.0) mg/dL AST (15-37) U/L ALT (10-53) U/L Alkaline Phosphatase (45-117) U/L Total Creatine Kinase (26-192) U/L Troponin I (0.02-0.05) ng/mL Total Protein (6.4-8.2) g/dL Albumin (3.4-5.0) g/dL Urine Color (Yellw/Straw) Urine Clarity (Clear) Urine pH (5.0-8.5) Ur Specific [place] (1.002-1.035) Urine Protein (Neg-Trace) mg/dL Urine Glucose (UA) (Negative) mg/dL Urine Ketones (Negative) mg/dL Urine Occult Blood (Negative) Urine Nitrate (Negative) Urine Bilirubin (Negative) Urine Urobilinogen (Less than 2) mg/dL Ur Leukocyte Esterase (Negative) Urine RBC (0-3) /hpf Urine WBC (0-5) /hpf Ur Squamous Epith Cells (0-5) /hpf Urine Bacteria (None) /hpf Micro UA Comment Urine Culture Comments 06/10/18 06/10/18 06/10/18 Range/Units 16:30 16:30 17:15 CBC w Diff WBC (4.0-11.0) th/mm3 RBC (4.00-5.30) mil/mm3 Hgb (11.6-15.3) gm/dL Hct (35.0-46.0) % MCV (80.0-100.0) fL MCH (27.0-34.0) pg MCHC (32.0-36.0) % RDW (11.6-17.2) % Plt Count (150-450) th/mm3 MPV (7.0-11.0) fL Neut % (Auto) (16.0-70.0) % Lymph % (Auto) (9.0-44.0) % [place] % (Auto) (0.0-8.0) % Eos % (Auto) (0.0-4.0) % Baso % (Auto) (0.0-2.0) % Neut # (Auto) (1.8-7.7) th/mm3 Lymph # (Auto) (1.0-4.8) th/mm3 [place] # (Auto) (0.0-0.9) th/mm3 Eos # (Auto) (0.0-0.4) th/mm3 Baso # (Auto) (0.0-0.2) th/mm3 WBC Differential Differential Comment PT (9.8-11.6) sec INR Ratio APTT (24.3-30.1) sec Sodium 134 L (136-145) meq/L Potassium 5.1 (3.5-5.1) meq/L Chloride 100 (98-107) meq/L Carbon Dioxide 28.3 (21.0-32.0) meq/L Anion Gap 6 (5-15) meq/L BUN 41 H (7-18) mg/dL Creatinine 2.00 H (0.50-1.00) mg/dL Estimated GFR 24 L (>89) mL/min POC Glucose (68-110) mg/dl Random Glucose 341 H (74-106) mg/dL Lactic Acid 1.7 (0.4-2.0) mmol/L Calcium 8.1 L (8.5-10.1) mg/dL Total Bilirubin 0.4 (0.2-1.0) mg/dL AST 17 (15-37) U/L ALT 22 (10-53) U/L Alkaline Phosphatase 102 (45-117) U/L Total Creatine Kinase 97 (26-192) U/L Troponin I Less than 0.02 L (0.02-0.05) ng/mL Total Protein 6.6 (6.4-8.2) g/dL Albumin 2.8 L (3.4-5.0) g/dL Urine Color Yellow (Yellw/Straw) Urine Clarity Clear (Clear) Urine pH 5.5 (5.0-8.5) Ur Specific [place] 1.010 (1.002-1.035) Urine Protein Negative (Neg-Trace) mg/dL Urine Glucose (UA) 250 H (Negative) mg/dL Urine Ketones Negative (Negative) mg/dL Urine Occult Blood Negative (Negative) Urine Nitrate Positive H (Negative) Urine Bilirubin Negative (Negative) Urine Urobilinogen 0.2 (Less than 2) mg/dL Ur Leukocyte Esterase Trace H (Negative) Urine RBC 0-3 (0-3) /hpf Urine WBC 5-8 H (0-5) /hpf Ur Squamous Epith Cells 0-5 (0-5) /hpf Urine Bacteria Many H (None) /hpf Micro UA Comment Cath-culture ind Urine Culture Comments Cath-cult indicated Imaging Data Radiologist's impression: Chest X-Ray 06/10/18 16:12 CONCLUSION: Stable chest without evidence of acute cardiopulmonary process. Head CT 06/10/18 16:12 CONCLUSION: 1. Left frontal hypodensity without evidence of significant mass effect or hemorrhage. This may represent a subacute to chronic infarct. Further characterization with MRI should be considered. 2. No other significant abnormality. Aorta Ultrasound 06/10/18 17:56 CONCLUSION: 1. Normal dimension abdominal aorta. ECG Data EKG Prior to Arrival: Yes Attestation: I personally reviewed and interpreted this ECG as follows: Interpretation: ECG shows a paced rhythm Discharge Plan Discharge Disposition Patient Disposition: 30 Still Patient Discharge Condition Condition: Stable Discharge Details Diagnosis: Acute UTI, Dehydration, Acute hypotension, Acute hyperglycemia Physicians Team ED Provider: Kamala Muir Primary Care Provider: Crystal Allen Attending Provider: Donna Kidd Discharge Interventions Interventions: Vital Signs Last Done: 06/10/18 19:13 Status ED Status: Admitted Observation Patient
[2018-06-10] MEDS ORDERED: Dextrose 50% in Water 50 ML Vial IV.PUSH PRN (20:05)
[2018-06-10] MEDS ORDERED: Bisacodyl 10 MG Supp RECTAL PRN (20:06)
[2018-06-10] MEDS: Sucralfate 1 GM Tablet PO SCH (20:57)
[2018-06-10] MEDS: Sod Chloride 0.9% Inj 1,000 ML IV.CONT SCH (20:57)
[2018-06-10] MEDS: Insulin NovoLOG Aspart Correctional Sugar Inj SQ SCH (22:25)
[2018-06-10] MEDS: Senna/Docusate Sodium 8.6/50 MG Tablet PO SCH (23:29)
[2018-06-10] MEDS: Temazepam 15 MG Capsule PO PRN (23:29)
[2018-06-10] MEDS: Budesonide-Formoterol 80/4.5 MCG 6.9 GM Inhaler INH SCH (23:30)
[2018-06-11 06:40] LABS: Chloride 102 meq/L (98-107); Potassium 4.6 meq/L (3.5-5.1); Sodium 137 meq/L (136-145)
[2018-06-11 06:41] LABS: Baso % (Auto) 0.3 % (0.0-2.0); Eos # (Auto) 0.5 th/mm3 (0.0-0.4); Hematocrit 31.4 % (35.0-46.0); Hemoglobin 10.9 gm/dL (11.6-15.3); Lymph # (Auto) 1.7 th/mm3 (1.0-4.8); Lymph % (Auto) 17.6 % (9.0-44.0); Mean Corpuscular HGB Conc 34.9 % (32.0-36.0); Mean Corpuscular Hemoglobin 32.1 pg (27.0-34.0); Mean Corpuscular Volume 91.9 fL (80.0-100.0); Mean Platelet Volume 8.5 fL (7.0-11.0); Mono # (Auto) 0.7 th/mm3 (0.0-0.9); Mono % (Auto) 6.6 % (0.0-8.0); Neut % (Auto) 70.5 % (16.0-70.0); Platelet Count 247 th/mm3 (150-450); Red Blood Count 3.41 mil/mm3 (4.00-5.30); Red Cell Distribution Width 14.8 % (11.6-17.2); White Blood Count 9.9 th/mm3 (4.0-11.0)
[2018-06-11 06:43] LABS: Calcium 8.7 mg/dL (8.5-10.1)
[2018-06-11 06:44] LABS: Albumin 3.1 g/dL (3.4-5.0); Anion Gap 4 meq/L (5-15); Carbon Dioxide 30.9 meq/L (21.0-32.0)
[2018-06-11 06:51] LABS: Alanine Aminotransferase 22 U/L (10-53); Alkaline Phosphatase 108 U/L (45-117); Aspartate Aminotransferase 16 U/L (15-37); Blood Urea Nitrogen 29 mg/dL (7-18); Glomerular Filtration Rate 36 mL/min (>89); Glucose,Random 240 mg/dL (74-106); Total Protein 7.2 g/dL (6.4-8.2)
[2018-06-11] MEDS: Senna/Docusate Sodium 8.6/50 MG Tablet PO SCH ×2 (08:16→21:03)
[2018-06-11] MEDS: Budesonide-Formoterol 80/4.5 MCG 6.9 GM Inhaler INH SCH (08:16)
[2018-06-11] MEDS: Insulin NovoLOG Aspart Correctional Sugar Inj SQ SCH ×3 (08:24→17:05)
[2018-06-11] MEDS: Sucralfate 1 GM Tablet PO SCH ×4 (08:26→21:04)
[2018-06-11] MEDS: Sod Chloride 0.9% Inj 1,000 ML IV.CONT SCH (09:55)
--- NOTE | 2018-06-11 10:29 | ECG ---
Date Performed: 06/10/2018 Time Performed: 16:38:05 PTAGE: 82 years EKG: ELECTRONIC VENTRICULAR PACEMAKER ABNORMAL RHYTHM ECG PREVIOUS TRACING : 02/23/2018 19.36 Since the previous tracing, no significant change noted DOCTOR: Beatrice Vickers Interpretating Date/Time 06/11/2018 10:29:22
--- NOTE | 2018-06-11 11:57 | MR ---
EXAM DATE: 06/11/2018 11:41 AM EDT AGE/SEX: 82 years / Female INDICATIONS: CVA. Weakness. CLINICAL DATA: This is the patient's initial encounter. Patient reports that signs and symptoms have been present for 2 days and indicates a pain score of 0/10. MEDICAL/SURGICAL HISTORY: Hypertension. Diabetes mellitus type II. Pacemaker. Cholecystectomy . Tonsillectomy. COMPARISON: No prior exams available for comparison. TECHNIQUE: Multiplanar, multisequence examination of the brain was performed without contrast. FINDINGS: There is no evidence for intracranial hemorrhage, mass effect, mass lesions, edema, or extra-axial fl uid collections. The ventricles are slightly prominent probably due to atrophic changes. There are no signs of acute infarction for technique. The diffusion portion is unremarkable. Moderate degree of brain atrophy is seen. Moderate periventricular white matter changes are seen nonspecific mostly c onsistent with chronic small vessel ischemic changes. There is focal encephalomalacia in the left fro ntal lobe corresponding to the area of lucency seen on the patient's prior CT examination due to old infarction. CONCLUSION: Chronic small vessel ischemic and atrophic changes, focal encephalomalacia left frontal lobe. Electronically signed by: Marvin Todd MD 06/11/2018 11:55 AM EDT
--- NOTE | 2018-06-11 12:10 | P.HP ---
History of Present Illness Primary Care Physician: Crystal Allen Chief Complaint: Low blood pressure History of Present Illness: 82-year-old female with known history of hypertension, CVA, diabetes, peripheral artery stenosis, gastroesophageal reflux who presented to the hospital because of lightheadedness, dizziness, low blood pressure. It is difficult to obtain information from the patient, appears that she does have some memory issues with events, however she is orientated to person, place, time , month, year, day of the week. She indicates that she did go to [facility] day before yesterday because she was having some lower abdominal bloating she had workup done, as she had a urinary catheter placement and was told that she did not have a urinary tract he did other evaluation and told her that she had abdominal aneurysm that she needed to be evaluated emergently by a surgeon. Patient did not want to stay [facility] in the hospital so she went home. The next day she went with her granddaughter to her great-grandson's doctor's appointment and apparently while she was there ER records indicate that the patient was sitting in a chair and she was having episodes of lightheadedness and dizziness. Patient indicates that she was in the car with her granddaughter and she became very lightheaded, dizzy and she feels as if she passed out. [facility] was called and they checked her blood pressure and she had a systolic blood pressure of 60 so she was brought to [facility] for further evaluation, during the trip patient was given IV fluids. On presentation patient had a blood pressure 110/52. Workup did indicate urine tract infection, hyperglycemia. Neurological workup did not indicate any acute abnormality. Because of the patient's presentation is recommended by the ER physician that the patient be admitted for further evaluation and management. - Diagnosis (1) Near syncope (2) Acute renal failure superimposed on stage 3 chronic kidney disease (3) Urinary tract infection (4) Acute hyperglycemia Review of Systems All other systems reviewed negative except as stated in HPI Eyes: Reports blurry vision Neurologic: Reports other (Near syncope) [facility] - History History Provided By: Patient - Medical History Medical History: Medical History (Last Reviewed 06/11/18 @ 11:50 by JL Mcdowell) Aneurysm CVA (cerebral vascular accident) Diabetes Femoral artery stenosis GERD (gastroesophageal reflux disease) Hypertension Pneumonia - Surgical History Surgical History: Surgical History (Last Updated 06/11/18 @ 11:47 by LJ Mcdowell) H/O endarterectomy History of cholecystectomy History of procedure for peripheral vascular disease History of tubal ligation - Family History Family History: Family History (Last Updated 06/11/18 @ 11:50 by LJ Mcdowell) Father Family history of heart disease Family history of dementia Mother Family history of heart disease Family history of diabetes mellitus Grandparent Family history of diabetes mellitus - Tobacco History Second Hand Smoke Exposure: No Smoking Status: Never smoker - Alcohol History How Often Do You Have a Drink Containing Alcohol: Never - Substance Use History Substance History: No History of Abuse - Travel History Recent Travel in the [place] Within the Last 8 Weeks: No Recent Travel Out of the Country Within the Last 8 Weeks: No - Immunization History Tetanus Immunization: Unsure Hx Influenza Vaccine This Season: Yes Medications and Allergies Active Medications: Active Medications Al Hydroxide/Mg Hydroxide (Milk Of Magnesia Liq) 30 ml PO Q12H PRN PRN Reason: Mild Constipation Apixaban (Eliquis) 5 mg PO BID [facility] Last Admin: 06/11/18 08:16 Dose: 5 mg Atorvastatin Calcium (Lipitor) 20 mg PO DAILY [facility] Last Admin: 06/11/18 08:16 Dose: 20 mg Bisacodyl (Dulcolax Supp) 10 mg RECTAL DAILY PRN PRN Reason: SEVERE CONSITIPATION Budesonide/Formoterol Fumarate (Symbicort 80/4.5 Mcg Inh) 2 puff INH BID [facility] Last Admin: 06/11/18 08:16 Dose: 2 puff Dextrose (D50w Vial) 50 ml IV.PUSH UNSCH PRN PRN Reason: PER HYPOGLYCEMIA PROTOCOL Glucagon (Glucagon Inj) 1 mg OTHER PRN PRN PRN Reason: for Hypoglycemia Protocol Ceftriaxone Sodium 1,000 mg/ (Sodium Chloride) 100 mls @ 200 mls/hr IV.SIG Q24H [facility] Sodium Chloride (Ns Inj) 1,000 mls @ 100 mls/hr IV.CONT .Q10H [facility] Last Admin: 06/11/18 09:55 Dose: 100 mls/hr Insulin Aspart (Novolog Insulin Correctional Sugar Inj) 0 unit SQ ACHS [facility]; Protocol Last Admin: 06/11/18 11:53 Dose: Not Given Lactulose (Lactulose Liq) 30 ml PO DAILY PRN PRN Reason: SEVERE CONSITIPATION Metoclopramide HCl (Reglan Inj) 5 mg IV.PUSH Q6HR PRN; Protocol PRN Reason: NAUSEA OR VOMITING Montelukast Sodium (Singulair) 10 mg PO QPM SAEED Oxycodone HCl (Roxicodone) 30 mg PO Q6H PRN PRN Reason: SEVERE PAIN Last Admin: 06/11/18 05:46 Dose: 30 mg Pantoprazole Sodium (Protonix) 40 mg PO DAILY [facility] Last Admin: 06/11/18 08:16 Dose: 40 mg Pramipexole Dihydrochloride (Mirapex) 0.5 mg PO QPM [facility] Senna/Docusate Sodium (Sara-Colace) 1 tab PO BID [facility] Last Admin: 06/11/18 08:16 Dose: 1 tab Sennosides (Senokot) 17.2 mg PO Q12H PRN PRN Reason: Moderate Constipation Sodium Chloride (Ns Flush) 2 ml IV.FLUSH PRN PRN PRN Reason: FLUSH AFTER USING IV ACCESS Last Admin: 06/10/18 16:44 Dose: 2 ml Sucralfate (Carafate) 1 gm PO QID [facility] Last Admin: 06/11/18 08:26 Dose: 1 gm Temazepam (Restoril) 15 mg PO HS PRN PRN Reason: INSOMNIA Last Admin: 06/10/18 23:29 Dose: 15 mg Allergies Allergy/AdvReac Type Severity Reaction Status Date / Time morphine Allergy Severe HIVES Verified 06/10/18 20:05 penicillin G Allergy Severe HIVES Verified 06/10/18 20:05 Home Medications Medication Instructions Recorded Confirmed Type amitriptyline 25 mg PO DAILY 06/10/18 06/10/18 History apixaban [Eliquis] 5 mg PO BID 06/10/18 06/10/18 History atorvastatin 20 mg PO DAILY 06/10/18 06/10/18 History budesonide-formoterol [Symbicort] 2 puff INHALATION BID 06/10/18 06/10/18 History furosemide [Lasix] 20 mg PO DAILY 06/10/18 06/10/18 History gabapentin 300 mg PO TID 06/10/18 06/10/18 History labetalol 100 mg PO QAM 06/10/18 06/10/18 History lorazepam [Ativan] 2 mg PO DAILY 06/10/18 06/10/18 History montelukast 10 mg PO QPM 06/10/18 06/10/18 History ondansetron HCl [Zofran] 4 mg PO TID-QID PRN 06/10/18 06/10/18 History oxycodone 30 mg PO Q4-6H PRN 06/10/18 06/10/18 History pantoprazole 40 mg PO DAILY 06/10/18 06/10/18 History potassium chloride 20 meq PO DAILY 06/10/18 06/10/18 History pramipexole 0.5 mg PO QPM 06/10/18 06/10/18 History sucralfate [Carafate] 1 g PO QID 06/10/18 06/10/18 History tizanidine 2 mg PO TID PRN 06/10/18 06/10/18 History Exam Vital signs: Vital Signs 06/10/18 16:13 06/10/18 16:21 06/10/18 16:23 Temperature 98.4 F Pulse Rate 68 70 Respiratory Rate 16 16 Blood Pressure 110/52 L 111/54 L Pulse Oximetry 95 95 95 06/10/18 18:00 06/10/18 19:13 06/10/18 20:06 Temperature Pulse Rate 67 68 90 Respiratory Rate 16 16 Blood Pressure 129/61 114/53 L Pulse Oximetry 95 96 06/10/18 21:04 06/11/18 00:00 06/11/18 07:48 Temperature 97.3 F L 98.6 F Pulse Rate 66 71 93 H Respiratory Rate 16 20 18 Blood Pressure 117/66 150/67 H 166/72 H Pulse Oximetry 97 95 06/11/18 09:36 Temperature Pulse Rate 86 Respiratory Rate Blood Pressure Pulse Oximetry Intake & Output 06/10/18 06/11/18 06/11/18 18:59 06:59 18:59 Intake Total 500 / 500 720 / 720 1100 / 1100 Balance 500 / 500 720 / 720 1100 / 1100 Weight 68.039 kg 68.1 kg Intake: IV 500 / 500 1100 / 1100 NS Inj 1,000 ML @ 100 mls/hr IV 1000 / 1000 .CONT .Q10H SAEED Rx#:[id number] NS Inj 500 ML @ Wide Open IV. 500 / 500 SIG BOLUS ONE Rx#:[id number] Rocephin Inj 1,000 MG In NS Inj 100 / 100 100 ML @ 200 mls/hr IV.SIG ONCE ONE Rx#:[id number] Oral 720 / 720 Other: # Voids 4 Date of Last Bowel Movement 06/08/18 # Bowel Movements 0 Narrative: GENERAL: Well-developed, well-nourished, in no acute distress. alert and orientated, however does have some memory issues. HEENT: Head is normocephalic without any lesions or masses noted. Facial features are symmetric. Eyes: Pupils equal round reactive to light. Extraocular muscles are intact. Conjunctivae were clear. Oropharyngeal: Pharynx without any erythema edema. Tongue is midline without deviation. Buccal mucosa is moist without any masses or lesions NECK: Supple without any masses. Trachea midline no deviation. No JVD, no bruits are appreciated CARDIAC: Regular rhythm, regular rate. S1/S2 are heard. No murmurs gallops or rubs. LUNGS: Clear to auscultation bilaterally. No wheeze, rhonchi or rales. No use of accessory muscles on inspiration or expiration. ABDOMEN: Soft, nontender. Nondistended. Bowel sounds heard in all 4 quadrants. No organomegaly or masses. Negative rebound, negative guarding EXTREMITIES: No edema, pulses are equal bilaterally. No cyanosis or clubbing NEUROLOGY: Mood and affect appear appropriate. Cranial nerves II through XII grossly intact. Muscle strength 5/5 in upper and lower extremities bilaterally. Deep tendon reflexes are 2+ in upper and lower extremities bilaterally. Results - Labs CBC & Chem 7: 06/11/18 05:55 06/11/18 05:55 Labs: Laboratory Results - last 24 hr 06/10/18 06/10/18 06/10/18 16:26 16:30 16:30 CBC w Diff Auto diff final WBC 7.8 RBC 3.21 L Hgb 10.2 L Hct 30.0 L MCV 93.2 MCH 31.9 MCHC 34.2 RDW 15.0 Plt Count 227 MPV 8.2 Neut % (Auto) 64.1 Lymph % (Auto) 21.7 [place] % (Auto) 8.3 H Eos % (Auto) 5.3 H Baso % (Auto) 0.6 Neut # (Auto) 5.1 Lymph # (Auto) 1.7 [place] # (Auto) 0.6 Eos # (Auto) 0.4 Baso # (Auto) 0.0 WBC Differential . Differential Comment . PT 11.4 INR 1.1 APTT 26.1 Sodium Potassium Chloride Carbon Dioxide Anion Gap BUN Creatinine Estimated GFR POC Glucose 415 H Random Glucose Lactic Acid Calcium Total Bilirubin AST ALT Alkaline Phosphatase Total Creatine Kinase Troponin I Total Protein Albumin Urine Color Urine Clarity Urine pH Ur Specific [place] Urine Protein Urine Glucose (UA) Urine Ketones Urine Occult Blood Urine Nitrate Urine Bilirubin Urine Urobilinogen Ur Leukocyte Esterase Urine RBC Urine WBC Ur Squamous Epith Cells Urine Bacteria Micro UA Comment Urine Culture Comments 06/10/18 06/10/18 06/10/18 16:30 16:30 17:15 CBC w Diff WBC RBC Hgb Hct MCV MCH MCHC RDW Plt Count MPV Neut % (Auto) Lymph % (Auto) [place] % (Auto) Eos % (Auto) Baso % (Auto) Neut # (Auto) Lymph # (Auto) [place] # (Auto) Eos # (Auto) Baso # (Auto) WBC Differential Differential Comment PT INR APTT Sodium 134 L Potassium 5.1 Chloride 100 Carbon Dioxide 28.3 Anion Gap 6 BUN 41 H Creatinine 2.00 H Estimated GFR 24 L POC Glucose Random Glucose 341 H Lactic Acid 1.7 Calcium 8.1 L Total Bilirubin 0.4 AST 17 ALT 22 Alkaline Phosphatase 102 Total Creatine Kinase 97 Troponin I Less than 0.02 L Total Protein 6.6 Albumin 2.8 L Urine Color Yellow Urine Clarity Clear Urine pH 5.5 Ur Specific [place] 1.010 Urine Protein Negative Urine Glucose (UA) 250 H Urine Ketones Negative Urine Occult Blood Negative Urine Nitrate Positive H Urine Bilirubin Negative Urine Urobilinogen 0.2 Ur Leukocyte Esterase Trace H Urine RBC 0-3 Urine WBC 5-8 H Ur Squamous Epith Cells 0-5 Urine Bacteria Many H Micro UA Comment Cath-culture ind Urine Culture Comments Cath-cult indicated 06/11/18 06/11/18 06/11/18 05:55 05:55 07:25 CBC w Diff Auto diff final WBC 9.9 RBC 3.41 L Hgb 10.9 L Hct 31.4 L MCV 91.9 MCH 32.1 MCHC 34.9 RDW 14.8 Plt Count 247 MPV 8.5 Neut % (Auto) 70.5 H Lymph % (Auto) 17.6 [place] % (Auto) 6.6 Eos % (Auto) 5.0 H Baso % (Auto) 0.3 Neut # (Auto) 7.0 Lymph # (Auto) 1.7 [place] # (Auto) 0.7 Eos # (Auto) 0.5 H Baso # (Auto) 0.0 WBC Differential . Differential Comment . PT INR APTT Sodium 137 Potassium 4.6 Chloride 102 Carbon Dioxide 30.9 Anion Gap 4 L BUN 29 H Creatinine 1.40 H Estimated GFR 36 L POC Glucose 248 H Random Glucose 240 H D Lactic Acid Calcium 8.7 Total Bilirubin 0.6 AST 16 ALT 22 Alkaline Phosphatase 108 Total Creatine Kinase Troponin I Total Protein 7.2 D Albumin 3.1 L Urine Color Urine Clarity Urine pH Ur Specific [place] Urine Protein Urine Glucose (UA) Urine Ketones Urine Occult Blood Urine Nitrate Urine Bilirubin Urine Urobilinogen Ur Leukocyte Esterase Urine RBC Urine WBC Ur Squamous Epith Cells Urine Bacteria Micro UA Comment Urine Culture Comments 06/11/18 11:50 CBC w Diff WBC RBC Hgb Hct MCV MCH MCHC RDW Plt Count MPV Neut % (Auto) Lymph % (Auto) [place] % (Auto) Eos % (Auto) Baso % (Auto) Neut # (Auto) Lymph # (Auto) [place] # (Auto) Eos # (Auto) Baso # (Auto) WBC Differential Differential Comment PT INR APTT Sodium Potassium Chloride Carbon Dioxide Anion Gap BUN Creatinine Estimated GFR POC Glucose 105 Random Glucose Lactic Acid Calcium Total Bilirubin AST ALT Alkaline Phosphatase Total Creatine Kinase Troponin I Total Protein Albumin Urine Color Urine Clarity Urine pH Ur Specific [place] Urine Protein Urine Glucose (UA) Urine Ketones Urine Occult Blood Urine Nitrate Urine Bilirubin Urine Urobilinogen Ur Leukocyte Esterase Urine RBC Urine WBC Ur Squamous Epith Cells Urine Bacteria Micro UA Comment Urine Culture Comments - Imaging Impressions Chest X-Ray 06/10/18 16:12 CONCLUSION: Stable chest without evidence of acute cardiopulmonary process. Head CT 06/10/18 16:12 CONCLUSION: 1. Left frontal hypodensity without evidence of significant mass effect or hemorrhage. This may represent a subacute to chronic infarct. Further characterization with MRI should be considered. 2. No other significant abnormality. Aorta Ultrasound 06/10/18 17:56 CONCLUSION: 1. Normal dimension abdominal aorta. Head MRI 06/11/18 20:10 CONCLUSION: Chronic small vessel ischemic and atrophic changes, focal encephalomalacia left frontal lobe. Caprini VTE Risk Assessment Caprini VTE Risk Assessment: Moderate/High Risk (score >= 2) Caprini Risk Assessment Model: Point Value = 1 Point Value = 2 Point Value = 3 Point Value = 5 Age 41-60 Minor surgery BMI > 25 kg/m2 Swollen legs Varicose veins or History of unexplained or recurrent spontaneous Oral contraceptives or hormone replacement Sepsis (< 1 month) Serious lung disease, including pneumonia (< 1 month) Abnormal pulmonary function Acute myocardial infarction Congestive heart failure (< 1 month) History of inflammatory bowel disease Medical patient at bed rest Age 61-74 Arthroscopic surgery Major open surgery (> 45 min) Laparoscopic surgery (> 45 min) Malignancy Confined to bed (> 72 hours) Immobilizing plaster cast Central venous access Age >= 75 History of VTE Family history of VTE Factor V Leiden Prothrombin [id number] Lupus anticoagulant Anticardiolipin antibodies Elevated serum homocysteine Heparin-induced thrombocytopenia Other congenital or acquired thrombophilia Stroke (< 1 month) Elective arthroplasty Hip, pelvis, or leg fracture Acute spinal cord injury (< 1 month) Prophylaxis Regimen: Total Risk Factor Score Risk Level Prophylaxis Regimen 0-1 Low Early ambulation 2 Moderate Order ONE of the following: *Sequential Compression Device (SCD) *Heparin 5000 units SQ BID 3-4 Higher Order ONE of the following medications: *Heparin 5000 units SQ TID *Enoxaparin/Lovenox 40 mg SQ daily (WT < 150 kg, CrCl > 30 mL/min) *Enoxaparin/Lovenox 30 mg SQ daily (WT < 150 kg, CrCl > 10-29 mL/min) *Enoxaparin/Lovenox 30 mg SQ BID (WT < 150 kg, CrCl > 30 mL/min) AND/OR *Sequential Compression Device (SCD) 5 or more Highest Order ONE of the following medications: *Heparin 5000 units SQ TID (Preferred with Epidurals) *Enoxaparin/Lovenox 40 mg SQ daily (WT < 150 kg, CrCl > 30 mL/min) *Enoxaparin/Lovenox 30 mg SQ daily (WT < 150 kg, CrCl > 10-29 mL/min) *Enoxaparin/Lovenox 30 mg SQ BID (WT < 150 kg, CrCl > 30 mL/min) AND *Sequential Compression Device (SCD) Assessment and Plan - Assessment (1) Near syncope Code(s): R55 - Syncope and collapse Status: Acute (2) Acute renal failure superimposed on stage 3 chronic kidney disease Code(s): N17.9 - Acute kidney failure, unspecified; N18.3 - Chronic kidney disease, stage 3 (moderate) Status: Acute (3) Urinary tract infection Code(s): N39.0 - Urinary tract infection, site not specified Status: Acute (4) Acute hyperglycemia Code(s): R73.9 - Hyperglycemia, unspecified Status: Acute - Plan Lightheadedness, dizziness, near syncope -Likely secondary to urinary tract infection, medication side effects, hypotension, dehydration -CT of the brain was unremarkable -Orthostatic vitals did not indicate any acute abnormality -MRI was performed which did not indicate any acute abnormality -Patient blood pressure medication was held and now her blood pressure is elevated -Physical therapy evaluated the patient and indicated the patient was independent with transfer and walk 90 feet without any assistance. They are recommending home with home health care PT -Carotid ultrasound did not indicate any hemodynamically significant stenosis Acute renal failure superimposed on chronic kidney disease stage III -Renal functions have returned to baseline after IV hydration -Avoid nephrotoxins Diabetes with hyperglycemia, improved -Diabetic diet -Accu-Cheks with sliding scale insulin Urinary tract infection -Patient has been started on Rocephin -Continue monitor urine culture history of CVA, hypertension, hyper lipidemia -Workup thus far does not indicate any recurrent CVA -Statin has been continued -Blood pressure medications have been held due to the subjective hypotension, -Started lisinopril 10 mg daily -Resume Lasix/potassium -We will defer labetalol at this time, under treatment with only 100 mg a day at this time. This medication could also cause her presenting symptoms -Anticoagulation with Eliquis has been continued DVT prevention -Patient is anticoagulated with Eliquis
[2018-06-11] MEDS: Lisinopril 10 MG Tablet PO SCH (13:44)
--- NOTE | 2018-06-11 14:11 | US ---
EXAM DATE: 06/11/2018 1:50 PM EDT AGE/SEX: 82 years / Female INDICATIONS: Dizziness. CLINICAL DATA: This is the patient's initial encounter. Patient reports that signs and symptoms have been present for 1 day and indicates a pain score of 10/10. MEDICAL/SURGICAL HISTORY: Cerebrovascular disease. Gastroesophageal reflux disease. Diabetes. Hypertension. Aneurysm. Femoral Artery Stenosis. Pneumonia. Cholecystectomy. Tubal ligation. E ndarterectomy left. COMPARISON: No prior exams available for comparison. VELOCITY PARAMETERS: ICA/CCA Ratio: Right 1.6 , Left 1.0 ICA: Right 119 cm/sec, Left 87 cm/sec CCA: Right 72 cm/sec, Left 86 cm/sec ECA: Right 83 cm/sec, Left 58 cm/sec Vertebral: Right 29 cm/sec antegrade, Left 59 cm/sec antegrade FINDINGS: Right Carotid: Moderate arteriosclerotic plaque is visualized.The waveforms are within normal limits . Left Carotid: Mild arteriosclerotic plaque is visualized. The waveforms are within normal limits. Other: None. CONCLUSION: No evidence for hemodynamically significant stenosis. Electronically signed by: Marvin Todd MD 06/11/2018 2:09 PM EDT
--- NOTE | 2018-06-11 14:27 | P.DCO ---
- Physical Therapy Order: Evaluate and treat, Improve ambulation, Strength and gait training - Home Health Nursing Order: Medical education, Signs/symptoms of disease process, Nursing assessment with vital signs - Certification I have seen patient Carin Hill on 06/11/18. My clinical findings support the need for the requested home health care services because: Limited mobility due to disease progression, Limited ability to care for self I certify that my clinical findings support that this patient is homebound because: Unsteady gait/balance, Unsafe to leave home unassisted
[2018-06-11] MEDS: Furosemide 20 MG Tablet PO SCH (16:42)
[2018-06-11] MEDS ORDERED: Montelukast 10 MG Tablet PO SCH (18:00)
[2018-06-11] MEDS ORDERED: Gabapentin 300 MG Capsule PO SCH (18:00)
[2018-06-11] MEDS ORDERED: Ketorolac Inj 30 MG/ML (IVP) Vial IV.PUSH ONE (21:00)
[2018-06-11] MEDS: Temazepam 15 MG Capsule PO PRN (21:03)
[2018-06-12] MEDS: Budesonide-Formoterol 80/4.5 MCG 6.9 GM Inhaler INH SCH ×2 (00:38→09:01)
[2018-06-12] MEDS: Insulin NovoLOG Aspart Correctional Sugar Inj SQ SCH ×3 (00:38→14:29)
[2018-06-12] MEDS: Sod Chloride 0.9% Inj 1,000 ML IV.CONT SCH ×2 (00:42→09:00)
[2018-06-12 07:48] LABS: Potassium 4.4 meq/L (3.5-5.1)
[2018-06-12 07:51] LABS: Calcium 8.2 mg/dL (8.5-10.1); Carbon Dioxide 28.5 meq/L (21.0-32.0)
[2018-06-12] MEDS: Lisinopril 10 MG Tablet PO SCH (08:59)
[2018-06-12] MEDS: Furosemide 20 MG Tablet PO SCH (08:59)
[2018-06-12] MEDS: Senna/Docusate Sodium 8.6/50 MG Tablet PO SCH (08:59)
[2018-06-12] MEDS ORDERED: Gabapentin 300 MG Capsule PO SCH (09:00)
[2018-06-12] MEDS ORDERED: Amitriptyline 25 MG Tablet PO SCH (09:00)
[2018-06-12] MEDS: Sucralfate 1 GM Tablet PO SCH (09:00)
--- NOTE | 2018-06-12 11:22 | P.PN ---
Subjective Interval history: 82-year-old female seen and examined today for follow-up on lightheadedness, dizziness, near syncope. Patient is doing much better. Workup is completed he does not indicate any acute abnormality. Blood pressure and glucose appear to be much improved after adjustment of medications. Patient very eager to go home. Vital signs remained stable, patient afebrile Physical Exam Vital signs: Vital Signs 06/11/18 12:00 06/11/18 16:00 06/11/18 20:00 Temperature 98.1 F 97.5 F L Pulse Rate 69 100 H 77 Respiratory Rate 18 18 19 Blood Pressure 183/78 H 185/82 H 99/52 L Pulse Oximetry 95 95 97 06/12/18 00:00 06/12/18 04:00 06/12/18 08:00 Temperature 97.9 F 97.8 F 97.3 F L Pulse Rate 65 70 71 Respiratory Rate 18 18 21 Blood Pressure 125/58 L 118/60 132/62 Pulse Oximetry 95 97 95 Intake & Output 06/11/18 06/12/18 06/12/18 18:59 06:59 18:59 Intake Total 1100 / 1100 1959 / 1959 Output Total 300 / 300 Balance 1100 / 1100 1959 -300 / -300 Weight 70 kg Intake: IV 1100 / 1100 1000 / 1000 NS Inj 1,000 ML @ 100 mls/hr IV 1000 / 1000 1000 / 1000 .CONT .[facility] Rx#:[id number] Rocephin Inj 1,000 MG In NS Inj 100 / 100 100 ML @ 200 mls/hr IV.SIG ONCE ONE Rx#:[id number] Oral 960 / 960 Output: Urine 300 / 300 Other: # Voids 4 Date of Last Bowel Movement 06/08/18 06/08/18 Narrative: GENERAL: Well-developed, well-nourished, in no acute distress. alert and orientated, HEENT: Head is normocephalic without any lesions or masses noted. Facial features are symmetric. Eyes: Extraocular muscles are intact. Conjunctivae were clear. NECK: Supple without any masses. Trachea midline no deviation. No JVD, CARDIAC: Regular rhythm, regular rate. S1/S2 are heard. No murmurs gallops or rubs. LUNGS: Clear to auscultation bilaterally. No wheeze, rhonchi or rales. No use of accessory muscles on inspiration or expiration. ABDOMEN: Soft, nontender. Nondistended. Bowel sounds heard in all 4 quadrants. No organomegaly or masses. Negative rebound, negative guarding EXTREMITIES: No edema, pulses are equal bilaterally. No cyanosis or clubbing NEUROLOGY: Mood and affect appear appropriate. Cranial nerves II through XII grossly intact. Moving all extremities, speech is clear - Urinary Catheter Management Straight Cath placed during this visit: yes Reason for continuing: Not indwelling catheter Insertion date: 06/10/18 Insertion time: 17:12 Results - Labs CBC & Chem 7: 06/11/18 05:55 06/12/18 07:31 Laboratory Results - last 24 hr 06/10/18 06/11/18 06/11/18 17:15 11:50 16:46 Sodium Potassium Chloride Carbon Dioxide Anion Gap BUN Creatinine Estimated GFR POC Glucose 105 226 H Random Glucose Calcium Urine Color Yellow Urine Clarity Clear Urine pH 5.5 Ur Specific [place] 1.010 Urine Protein Negative Urine Glucose (UA) 250 H Urine Ketones Negative Urine Occult Blood Negative Urine Nitrate Positive H Urine Bilirubin Negative Urine Urobilinogen 0.2 Ur Leukocyte Esterase Trace H Urine RBC 0-3 Urine WBC 5-8 H Ur Squamous Epith Cells 0-5 Urine Bacteria Many H Micro UA Comment Cath-culture ind Urine Culture Comments Cath-cult indicated 06/11/18 06/12/18 22:11 07:31 Sodium 135 L Potassium 4.4 Chloride 103 Carbon Dioxide 28.5 Anion Gap 4 L BUN 26 H Creatinine 1.20 H Estimated GFR 43 L POC Glucose 98 Random Glucose 215 H Calcium 8.2 L Urine Color Urine Clarity Urine pH Ur Specific [place] Urine Protein Urine Glucose (UA) Urine Ketones Urine Occult Blood Urine Nitrate Urine Bilirubin Urine Urobilinogen Ur Leukocyte Esterase Urine RBC Urine WBC Ur Squamous Epith Cells Urine Bacteria Micro UA Comment Urine Culture Comments Microbiology 06/10/18 17:15 Catheterized Urine Urine Culture - Preliminary gram negative rods - Imaging Impressions Carotid Doppler Study 06/11/18 00:00 CONCLUSION: No evidence for hemodynamically significant stenosis. Head MRI 06/11/18 20:10 CONCLUSION: Chronic small vessel ischemic and atrophic changes, focal encephalomalacia left frontal lobe. Assessment and Plan - Assessment (1) Near syncope Code(s): R55 - Syncope and collapse Status: Acute (2) Acute renal failure superimposed on stage 3 chronic kidney disease Code(s): N17.9 - Acute kidney failure, unspecified; N18.3 - Chronic kidney disease, stage 3 (moderate) Status: Acute (3) Urinary tract infection Code(s): N39.0 - Urinary tract infection, site not specified Status: Acute (4) Acute hyperglycemia Code(s): R73.9 - Hyperglycemia, unspecified Status: Acute - Plan Lightheadedness, dizziness, near syncope, resolved -Likely secondary to urinary tract infection, medication side effects, hypotension, dehydration -CT of the brain was unremarkable -Orthostatic vitals did not indicate any acute abnormality -MRI was performed which did not indicate any acute abnormality -Patient blood pressure medication was held and now her blood pressure is elevated -Physical therapy evaluated the patient and indicated the patient was independent with transfer and walk 90 feet without any assistance. They are recommending home with home health care PT -Carotid ultrasound did not indicate any hemodynamically significant stenosis Acute renal failure superimposed on chronic kidney disease stage III, improving -Renal functions have returned to baseline after IV hydration -Avoid nephrotoxins Diabetes with hyperglycemia, improved -Diabetic diet -Accu-Cheks with sliding scale insulin Urinary tract infection -Continue on Rocephin -Continue monitor urine culture -Patient will need to follow up with biomedical doctor for repeat urinalysis to evaluate for clearance history of CVA, hypertension, hyper lipidemia -Workup thus far does not indicate any recurrent CVA -Statin has been continued -Blood pressure medications have been held due to the subjective hypotension, -Continue lisinopril 10 mg daily -Resume Lasix/potassium -We will defer labetalol at this time, under treatment with only 100 mg a day at this time. This medication could also cause her presenting symptoms -Anticoagulation with Eliquis has been continued DVT prevention -Patient is anticoagulated with Eliquis Discharge Planning: Discharge home in stable condition Activity: Ad yrn. Diet: Healthy heart diet Medication per medication reconciliation Follow-up with primary medical doctor in 1 week
--- NOTE | 2018-06-12 19:48 | P.PNADD ---
Addendum to Inpatient Note Additional information: Was asked to call pt's daughter at [phone] regarding possible allergy to medication given at discharge. Daughter tells me pt was prescribed Cefuroxime for UTI, outpatient Pharmacy flagged the medication in light of her PCN allergy. Per review of pt's medical records, she received Rocephin during hospitalization w/ no documented allergy/adverse reaction. Informed Daughter that based on this, it is unlikely that patient will have any issues w/ Cefuroxime as medication is in the same class. Daughter also notes pt's BP elevated in the "220's". Was discharged on Lisinopril 10mg qd. Daughter notes BP runs low-in the 90's then high again, but she is concerned for stroke. Informed Daughter that if there is an acute issue w/ pt's blood pressure and concern for stroke that requires emergent evaluation, then pt should be brought to the ER. Recommended pt has close follow up w/ PCP for optimization of blood pressure.
[2018-06-13 12:11] LABS: Hemoglobin A1c 9.6 % (4.3-6.0)
== END 2018-06-12 17:13 | disposition home health service (06) ==
LOC: PHEDA 16:03 → PHED 16:03 → PH3 16:03
PROVIDERS: ADMIT Family Medicine; ATTEND Family Medicine
DX: N17.9 Acute kidney failure, unspecified; E78.5 Hyperlipidemia, unspecified; E11.22 Type 2 diabetes mellitus with diabetic chronic kidney disease; Z79.899 Other long term (current) drug therapy; Z79.51 Long term (current) use of inhaled steroids; H53.8 Other visual disturbances; G93.89 Other specified disorders of brain; N39.0 Urinary tract infection, site not specified; E11.65 Type 2 diabetes mellitus with hyperglycemia; R55 Syncope and collapse; I12.9 Hypertensive chronic kidney disease with stage 1 through stage 4 chronic kidney disease, or unspecified chronic kidney disease; Z86.73 Personal history of transient ischemic attack (TIA), and cerebral infarction without residual deficits; Z79.01 Long term (current) use of anticoagulants; N18.3 Chronic kidney disease, stage 3 (moderate); K21.9 Gastro-esophageal reflux disease without esophagitis; E86.0 Dehydration

== ENCOUNTER 2018-07-12 12:46 | Inpatient (IN) ==
[2018-07-12] MEDS ORDERED: Sodium Chlor 0.9% Inj 500 ML IV.SIG ONE (13:10)
--- NOTE | 2018-07-12 13:16 | ED ---
HPI General Chief complaint: Weakness Stated complaint: Low BP Time Seen by Provider: 07/12/18 13:10 Source: patient and EMS Mode of arrival: EMS Limitations: no limitations History of Present Illness HPI Narrative: 82-year-old female patient with history of chronic kidney disease , previous UTIs, CVA, diabetes, multiple medical issues, presents to the ER today because she states that she woke up today not feeling well, generally weak , especially after she went to her granddaughter's a few days ago, has not been eating and drinking as well. She denies any chest pain, trouble breathing, vomiting, or other symptoms. Related Data Home Medications Medication Instructions Recorded Confirmed amitriptyline 25 mg PO DAILY 06/10/18 06/10/18 apixaban [Eliquis] 5 mg PO BID 06/10/18 06/10/18 atorvastatin 20 mg PO DAILY 06/10/18 06/10/18 budesonide-formoterol [Symbicort] 2 puff INHALATION BID 06/10/18 06/10/18 furosemide [Lasix] 20 mg PO DAILY 06/10/18 06/10/18 gabapentin 300 mg PO TID 06/10/18 06/10/18 lorazepam [Ativan] 2 mg PO DAILY 06/10/18 06/10/18 montelukast 10 mg PO QPM 06/10/18 06/10/18 ondansetron HCl [Zofran] 4 mg PO TID-QID PRN 06/10/18 06/10/18 oxycodone 30 mg PO Q4-6H PRN 06/10/18 06/10/18 pantoprazole 40 mg PO DAILY 06/10/18 06/10/18 potassium chloride 20 meq PO DAILY 06/10/18 06/10/18 pramipexole 0.5 mg PO QPM 06/10/18 06/10/18 sucralfate [Carafate] 1 g PO QID 06/10/18 06/10/18 tizanidine 2 mg PO TID PRN 06/10/18 06/10/18 Previous Rx's Medication Instructions Recorded cefuroxime axetil 250 mg PO Q12H #10 tab 06/12/18 lisinopril 10 mg PO DAILY #30 tab 06/12/18 Allergies Allergy/AdvReac Type Severity Reaction Status Date / Time morphine Allergy Severe HIVES Verified 07/12/18 12:52 penicillin G Allergy Severe HIVES Verified 07/12/18 12:52 Review of Systems ROS: all other systems reviewed are negative PMFSH History History Provided By: Patient and Service Desk Technician / EMT Medical History Medical History Femoral artery stenosis (Acute) Aneurysm (Acute) CVA (cerebral vascular accident) (Acute) GERD (gastroesophageal reflux disease) (Acute) Diabetes (Acute) Hypertension (Acute) Pneumonia (Acute) Heart attack (Acute) Surgical History Surgical History History of procedure for peripheral vascular disease (Acute) History of tubal ligation (Acute) H/O endarterectomy (Acute) History of cholecystectomy (Acute) Family History Family History Father Family history of heart disease Family history of dementia Mother Family history of heart disease Family history of diabetes mellitus Grandparent Family history of diabetes mellitus Social History Social History Substance History: No History of Abuse Second Hand Smoke Exposure: No Smoking Status: Never smoker How Often Do You Have a Drink Containing Alcohol: Never Recent Travel in [facility] within the Last 8 Weeks: No Recent Out of Country Travel within the Last 8 Weeks: No Exam Narrative Exam Narrative: GENERAL: Well-developed elderly white female patient currently in mild distress. Awake and oriented x3. SKIN: Focused skin assessment warm/dry. HEAD: Atraumatic. Normocephalic. EYES: Pupils equal and round. No scleral icterus. No injection or drainage. ENT: No nasal bleeding or discharge. Mucous membranes pink and moist. NECK: Trachea midline. No JVD. CARDIOVASCULAR: Regular rate and rhythm. No murmur appreciated. RESPIRATORY: No accessory muscle use. Clear to auscultation. Breath sounds equal bilaterally. GASTROINTESTINAL: Abdomen soft, non-tender, nondistended. Hepatic and splenic margins not palpable. MUSCULOSKELETAL: No obvious deformities. No clubbing. No cyanosis. No edema. NEUROLOGICAL: Awake and alert. No obvious cranial nerve deficits. Motor grossly within normal limits. Normal speech. PSYCHIATRIC: Appropriate mood and affect; insight and judgment normal. Course Initial Documented Vital Signs Temperature 99.0 F 07/12/18 12:53 Pulse Rate 106 H 07/12/18 12:53 Respiratory Rate 18 07/12/18 12:53 Blood Pressure 106/53 L 07/12/18 12:53 Pulse Oximetry 91 L 07/12/18 12:53 Last Documented Vital Signs Temperature 99.0 F 07/12/18 12:53 Pulse Rate 104 H 07/12/18 13:11 Respiratory Rate 19 07/12/18 13:11 Blood Pressure 103/49 L 07/12/18 13:11 Pulse Oximetry 94 L 07/12/18 13:11 Medical Decision Making MDM Narrative Medical decision making narrative: Lab work shows significant UTI. Patient was given IV fluids in the ER and IV antibiotics were initiated after cultures are drawn. Her blood pressure did improve after IV fluids. At this point, I suspect that she may have underlying sepsis and plan would be to admit her for further treatment. Case is discussed with Dr. Marina for admission. Medical Screen Exam Complete: Yes Emergency Medical Condition: Yes Differential Diagnosis Differential Diagnosis: Sepsis versus dehydration versus electrolyte abnormalities versus depression Lab Data Result diagrams: 07/12/18 13:30 07/12/18 13:30 Lab Results 07/12/18 07/12/18 07/12/18 Range/Units 13:30 13:30 15:37 WBC 10.5 (4.0-11.0) th/mm3 RBC 2.91 L (4.00-5.30) mil/mm3 Hgb 9.4 L (11.6-15.3) gm/dL Hct 28.3 L (35.0-46.0) % MCV 97.1 (80.0-100.0) fL MCH 32.4 (27.0-34.0) pg MCHC 33.4 (32.0-36.0) % RDW 14.9 (11.6-17.2) % Plt Count 230 (150-450) th/mm3 MPV 8.1 (7.0-11.0) fL Neut % (Auto) 85.8 H (16.0-70.0) % Lymph % (Auto) 7.2 L (9.0-44.0) % [place] % (Auto) 6.2 (0.0-8.0) % Eos % (Auto) 0.3 (0.0-4.0) % Baso % (Auto) 0.5 (0.0-2.0) % Neut # (Auto) 9.0 H (1.8-7.7) th/mm3 Lymph # (Auto) 0.8 L (1.0-4.8) th/mm3 [place] # (Auto) 0.7 (0.0-0.9) th/mm3 Eos # (Auto) 0.0 (0.0-0.4) th/mm3 Baso # (Auto) 0.1 (0.0-0.2) th/mm3 WBC Differential . Differential Comment Auto diff final Sodium 136 (136-145) meq/L Potassium 4.5 (3.5-5.1) meq/L Chloride 100 (98-107) meq/L Carbon Dioxide 27.9 (21.0-32.0) meq/L Anion Gap 8 (5-15) meq/L BUN 35 H (7-18) mg/dL Creatinine 1.98 H (0.50-1.00) mg/dL Estimated GFR 24 L (>89) mL/min Random Glucose 186 H (74-106) mg/dL Calcium 8.1 L (8.5-10.1) mg/dL Total Bilirubin 0.5 (0.2-1.0) mg/dL AST 28 (15-37) U/L ALT 34 (10-53) U/L Alkaline Phosphatase 83 (45-117) U/L Troponin I 0.05 (0.02-0.05) ng/mL Total Protein 6.3 L (6.4-8.2) g/dL Albumin 2.7 L (3.4-5.0) g/dL Urine Color Yellow (Yellw/Straw) Urine Clarity Clear (Clear) Urine pH 5.0 (5.0-8.5) Ur Specific [place] 1.006 (1.002-1.035) Urine Protein Negative (Neg-Trace) mg/dL Urine Glucose (UA) Negative (Negative) mg/dL Urine Ketones Negative (Negative) mg/dL Urine Occult Blood Small H (Negative) Urine Nitrate Negative (Negative) Urine Bilirubin Negative (Negative) Urine Urobilinogen Less than 2 (Less than 2) mg/dL Ur Leukocyte Esterase Moderate H (Negative) Urine RBC 1 (0-3) /hpf Urine WBC 19 H (0-5) /hpf Ur Squamous Epith Cells 1 (0-5) /hpf Urine Bacteria Rare H (None) /hpf Hyaline Casts 3 (0-3) /lpf Micro UA Comment Cath-culture ind Urine Culture Comments Cath-cult indicated Imaging Data Radiologist's impression: Chest X-Ray 07/12/18 13:10 CONCLUSION: No acute cardiopulmonary abnormality is identified. Cardiac silhouette size is at the upper limits for normal. Discharge Plan Discharge Disposition Patient Disposition: 30 Still Patient Discharge Condition Condition: Stable Discharge Details Anticipated Discharge Date: 07/12/18 Diagnosis: Acute UTI, Dehydration, Acute hypotension Physicians Team ED Provider: Mariza Schafer Primary Care Provider: UNKNOWN, Attending Provider: Chris Marina Discharge Interventions Interventions: Vital Signs Last Done: 07/12/18 13:11 Status ED Status: Admitted Observation Patient
[2018-07-12 13:48] LABS: Baso # (Auto) 0.1 th/mm3 (0.0-0.2); Baso % (Auto) 0.5 % (0.0-2.0); Eos % (Auto) 0.3 % (0.0-4.0); Hematocrit 28.3 % (35.0-46.0); Hemoglobin 9.4 gm/dL (11.6-15.3); Lymph # (Auto) 0.8 th/mm3 (1.0-4.8); Lymph % (Auto) 7.2 % (9.0-44.0); Mean Corpuscular HGB Conc 33.4 % (32.0-36.0); Mean Corpuscular Hemoglobin 32.4 pg (27.0-34.0); Mean Corpuscular Volume 97.1 fL (80.0-100.0); Mean Platelet Volume 8.1 fL (7.0-11.0); Mono # (Auto) 0.7 th/mm3 (0.0-0.9); Mono % (Auto) 6.2 % (0.0-8.0); Neut % (Auto) 85.8 % (16.0-70.0); Platelet Count 230 th/mm3 (150-450); Red Blood Count 2.91 mil/mm3 (4.00-5.30); Red Cell Distribution Width 14.9 % (11.6-17.2); White Blood Count 10.5 th/mm3 (4.0-11.0)
[2018-07-12 14:11] LABS: Albumin 2.7 g/dL (3.4-5.0); Anion Gap 8 meq/L (5-15); Aspartate Aminotransferase 28 U/L (15-37); Blood Urea Nitrogen 35 mg/dL (7-18); Calcium 8.1 mg/dL (8.5-10.1); Carbon Dioxide 27.9 meq/L (21.0-32.0); Chloride 100 meq/L (98-107); Glomerular Filtration Rate 24 mL/min (>89); Glucose,Random 186 mg/dL (74-106); Potassium 4.5 meq/L (3.5-5.1); Sodium 136 meq/L (136-145)
[2018-07-12 14:12] LABS: Alanine Aminotransferase 34 U/L (10-53)
[2018-07-12 14:16] LABS: Alkaline Phosphatase 83 U/L (45-117); Total Protein 6.3 g/dL (6.4-8.2); Troponin I 0.05 ng/mL (0.02-0.05)
--- NOTE | 2018-07-12 14:18 | XR ---
EXAM DATE: 07/12/2018 2:07 PM EDT AGE/SEX: 82 years / Female INDICATIONS: Chest pain. CLINICAL DATA: This is the patient's initial encounter. Patient reports that signs and symptoms have been present for 2 weeks and indicates a pain score of 5/10. MEDICAL/SURGICAL HISTORY: . Myocardial infarction. Congestive heart failure. Hypercholesterolem ia. Diabetic. . Cardiac stent. COMPARISON: [facility], CHEST 1V SINGLE AP, 06/10/2018. [facility], CHEST PA & LAT, 02/25/2018. C, CTA CHEST W 3D RECON, 11/24/2012. . FINDINGS: Portable AP view of the chest demonstrates cardiac silhouette size at the upper limits for normal wit h calcification of the aorta. A leadless pacemaker device overlies the left heart. 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 No pleural effusion, consolidation, or pneumothorax is identified. Bones and soft tissues demonstrate no acute finding. There are degenerative changes of t he thoracic spine. EKG lines overlie the patient. CONCLUSION: No acute cardiopulmonary abnormality is identified. Cardiac silhouette size is at the upper limits fo r normal. Electronically signed by: Jude Simon MD 07/12/2018 2:16 PM EDT
[2018-07-12 15:55] LABS: Bacteria,Urine Rare /hpf; Bilirubin,Urine Negative (Negative); Clarity,Urine Clear (Clear); Color,Urine Yellow (Yellw/Straw); Glucose,Urine (UA) Negative (Negative); Hyaline Casts,Urine 3 /lpf (0-3); Leukocyte Esterase,Urine Moderate (Negative); Nitrite,Urine Negative (Negative); Specific Gravity,Urine 1.006 (1.002-1.035); Squamous Epithelial Cell,Urine 1 /hpf (0-5)
--- NOTE | 2018-07-12 17:13 | P.HP ---
History of Present Illness Primary Care Physician: UNKNOWN Chief Complaint: Weakness History of Present Illness: This is a pleasant 82 y/o Female with CKD, previous TID, Previous UTIs, CVA, DM II, who came to ER with complaint of that she woke up today not feeling well, generally weak, especially after she went to her granddaughter's a few days ago, has not been eating and drinking as well. She denies any chest pain, trouble breathing, vomiting, or other symptoms. Stable seen in her bedroom, she came due to that is not been feeling well for the last two weeks, some weakness found in ER UTI started management, admitted for observation, asked for assistant program manager and PT evaluation for probable discharge tomorrow and continue Antibiotics by mouth Review of Systems All other systems reviewed negative except as stated in HPI PMFSH - History History Provided By: Patient, Press And Blow Machine Tender / EMT - Medical History Medical History: Medical History (Last Updated 07/12/18 @ 17:43 by Chris Marina MD) Femoral artery stenosis (Acute) Aneurysm (Acute) CVA (cerebral vascular accident) (Acute) GERD (gastroesophageal reflux disease) (Acute) Diabetes (Acute) Hypertension (Acute) Pneumonia (Acute) CAD (coronary artery disease) Heart attack PAD (peripheral artery disease) - Surgical History Surgical History: Surgical History (Last Updated 07/12/18 @ 17:43 by Chris Marina MD) History of procedure for peripheral vascular disease (Acute) History of tubal ligation (Acute) H/O endarterectomy (Acute) History of cholecystectomy (Acute) Stented coronary artery - Family History Family History: Family History (Last Reviewed 07/12/18 @ 13:15 by Mariza Schafer MD) Father Family history of heart disease Family history of dementia Mother Family history of heart disease Family history of diabetes mellitus Grandparent Family history of diabetes mellitus - Tobacco History Second Hand Smoke Exposure: No Smoking Status: Never smoker - Alcohol History How Often Do You Have a Drink Containing Alcohol: Never - Substance Use History Substance History: No History of Abuse - Travel History Recent Travel in the [place] Within the Last 8 Weeks: No Recent Travel Out of the Country Within the Last 8 Weeks: No - Immunization History Tetanus Immunization: Unsure Medications and Allergies Active Medications: Active Medications Sodium Chloride (Ns Flush) 2 ml IV.FLUSH PRN PRN PRN Reason: FLUSH AFTER USING IV ACCESS Allergies Allergy/AdvReac Type Severity Reaction Status Date / Time morphine Allergy Severe HIVES Verified 07/12/18 12:52 penicillin G Allergy Severe HIVES Verified 07/12/18 12:52 Home Medications Medication Instructions Recorded Confirmed Type amitriptyline 25 mg PO DAILY 06/10/18 06/10/18 History apixaban [Eliquis] 5 mg PO BID 06/10/18 06/10/18 History atorvastatin 20 mg PO DAILY 06/10/18 06/10/18 History budesonide-formoterol [Symbicort] 2 puff INHALATION BID 06/10/18 06/10/18 History furosemide [Lasix] 20 mg PO DAILY 06/10/18 06/10/18 History gabapentin 300 mg PO TID 06/10/18 06/10/18 History lorazepam [Ativan] 2 mg PO DAILY 06/10/18 06/10/18 History montelukast 10 mg PO QPM 06/10/18 06/10/18 History ondansetron HCl [Zofran] 4 mg PO TID-QID PRN 06/10/18 06/10/18 History oxycodone 30 mg PO Q4-6H PRN 06/10/18 06/10/18 History pantoprazole 40 mg PO DAILY 06/10/18 06/10/18 History potassium chloride 20 meq PO DAILY 06/10/18 06/10/18 History pramipexole 0.5 mg PO QPM 06/10/18 06/10/18 History sucralfate [Carafate] 1 g PO QID 06/10/18 06/10/18 History tizanidine 2 mg PO TID PRN 06/10/18 06/10/18 History Exam Vital signs: Vital Signs 07/12/18 12:53 07/12/18 13:11 Temperature 99.0 F Pulse Rate 106 H 104 H Respiratory Rate 18 19 Blood Pressure 106/53 L 103/49 L Pulse Oximetry 91 L 94 L Intake & Output 07/11/18 07/12/18 07/12/18 18:59 06:59 18:59 Intake Total 500 / 500 Balance 500 / 500 Weight 72.575 kg Intake: IV 500 / 500 NS Inj 500 ML @ Wide Open IV. 500 / 500 SIG BOLUS ONE Rx#:[id number] Narrative: GENERAL: Well-developed, no acute distress. Awake and oriented x3. SKIN: Focused skin assessment warm/dry. HEAD: Atraumatic. Normocephalic. EYES: Pupils equal and round. No scleral icterus. No injection or drainage. ENT: No nasal bleeding or discharge. Mucous membranes pink and moist. NECK: Trachea midline. No JVD. CARDIOVASCULAR: Regular rate and rhythm. No murmur appreciated. RESPIRATORY: No accessory muscle use. Clear to auscultation. Breath sounds equal bilaterally. GASTROINTESTINAL: Abdomen soft, non-tender, nondistended. Hepatic and splenic margins not palpable. MUSCULOSKELETAL: No obvious deformities. No clubbing. No cyanosis. pedal edema. NEUROLOGICAL: Awake and alert. No obvious cranial nerve deficits. Motor grossly within normal limits. Normal speech. PSYCHIATRIC: Appropriate mood and affect; insight and judgment normal. Results - Labs CBC & Chem 7: 07/12/18 13:30 07/12/18 13:30 Labs: Laboratory Results - last 24 hr 07/12/18 07/12/18 07/12/18 13:30 13:30 15:37 WBC 10.5 RBC 2.91 L Hgb 9.4 L Hct 28.3 L MCV 97.1 MCH 32.4 MCHC 33.4 RDW 14.9 Plt Count 230 MPV 8.1 Neut % (Auto) 85.8 H Lymph % (Auto) 7.2 L [place] % (Auto) 6.2 Eos % (Auto) 0.3 Baso % (Auto) 0.5 Neut # (Auto) 9.0 H Lymph # (Auto) 0.8 L [place] # (Auto) 0.7 Eos # (Auto) 0.0 Baso # (Auto) 0.1 WBC Differential . Differential Comment Auto diff final Sodium 136 Potassium 4.5 Chloride 100 Carbon Dioxide 27.9 Anion Gap 8 BUN 35 H Creatinine 1.98 H Estimated GFR 24 L Random Glucose 186 H Calcium 8.1 L Total Bilirubin 0.5 AST 28 ALT 34 Alkaline Phosphatase 83 Troponin I 0.05 Total Protein 6.3 L Albumin 2.7 L Urine Color Yellow Urine Clarity Clear Urine pH 5.0 Ur Specific [place] 1.006 Urine Protein Negative Urine Glucose (UA) Negative Urine Ketones Negative Urine Occult Blood Small H Urine Nitrate Negative Urine Bilirubin Negative Urine Urobilinogen Less than 2 Ur Leukocyte Esterase Moderate H Urine RBC 1 Urine WBC 19 H Ur Squamous Epith Cells 1 Urine Bacteria Rare H Hyaline Casts 3 Micro UA Comment Cath-culture ind Urine Culture Comments Cath-cult indicated - Imaging Impressions Chest X-Ray 07/12/18 13:10 CONCLUSION: No acute cardiopulmonary abnormality is identified. Cardiac silhouette size is at the upper limits for normal. Caprini VTE Risk Assessment Caprini VTE Risk Assessment: Moderate/High Risk (score >= 2) Caprini Risk Assessment Model: Point Value = 1 Point Value = 2 Point Value = 3 Point Value = 5 Age 41-60 Minor surgery BMI > 25 kg/m2 Swollen legs Varicose veins or History of unexplained or recurrent spontaneous Oral contraceptives or hormone replacement Sepsis (< 1 month) Serious lung disease, including pneumonia (< 1 month) Abnormal pulmonary function Acute myocardial infarction Congestive heart failure (< 1 month) History of inflammatory bowel disease Medical patient at bed rest Age 61-74 Arthroscopic surgery Major open surgery (> 45 min) Laparoscopic surgery (> 45 min) Malignancy Confined to bed (> 72 hours) Immobilizing plaster cast Central venous access Age >= 75 History of VTE Family history of VTE Factor V Leiden Prothrombin [id number] Lupus anticoagulant Anticardiolipin antibodies Elevated serum homocysteine Heparin-induced thrombocytopenia Other congenital or acquired thrombophilia Stroke (< 1 month) Elective arthroplasty Hip, pelvis, or leg fracture Acute spinal cord injury (< 1 month) Prophylaxis Regimen: Total Risk Factor Score Risk Level Prophylaxis Regimen 0-1 Low Early ambulation 2 Moderate Order ONE of the following: *Sequential Compression Device (SCD) *Heparin 5000 units SQ BID 3-4 Higher Order ONE of the following medications: *Heparin 5000 units SQ TID *Enoxaparin/Lovenox 40 mg SQ daily (WT < 150 kg, CrCl > 30 mL/min) *Enoxaparin/Lovenox 30 mg SQ daily (WT < 150 kg, CrCl > 10-29 mL/min) *Enoxaparin/Lovenox 30 mg SQ BID (WT < 150 kg, CrCl > 30 mL/min) AND/OR *Sequential Compression Device (SCD) 5 or more Highest Order ONE of the following medications: *Heparin 5000 units SQ TID (Preferred with Epidurals) *Enoxaparin/Lovenox 40 mg SQ daily (WT < 150 kg, CrCl > 30 mL/min) *Enoxaparin/Lovenox 30 mg SQ daily (WT < 150 kg, CrCl > 10-29 mL/min) *Enoxaparin/Lovenox 30 mg SQ BID (WT < 150 kg, CrCl > 30 mL/min) AND *Sequential Compression Device (SCD) Assessment and Plan - Plan 1. Chronic Weakness with multiple admissions found to be related in the past to Hyponatremia also had CHF exacerbation, today with UTI started management with Ceftriaxone. 2. History of CVA/TIA at this time alert and oriented x 3. no focal deficits 3. GERD on gastric protection. 4. DM II continue ADA diet and sliding scale. get new hemoglobin a1c 5. PAD she has three vascular procedure on her Right leg and two on the left was scheduled by Doctor Jami for new procedure on her Left leg for day after tomorrow. continue anticoagulation 6. Hypertension controlled continue Home medicines. 7. Hyperlipidemia to continue home medicines 8. peripheral Neuropathy continue home medicines 9. COPD/Emphysema continue home medicines, bronchodilator, Mucolytic and incentive spirometry 10. Restless leg syndrome continue Home medicines 11. CAD status post PCI and three stents placements, chronic diastolic dysfunction stable DVT prophylaxis with consult PT consult assistant program manager. Home medicines not yet reconciled. Code Status: Full code. Discussed Condition With: Patient and ER Specialist doctor Mariza [place] Discharge Planning: Expected for tomorrow.
[2018-07-12] MEDS ORDERED: Acetaminophen 325 MG Tablet PO PRN (17:25)
[2018-07-12] MEDS ORDERED: Bisacodyl 10 MG Supp RECTAL PRN (17:25)
[2018-07-12] MEDS ORDERED: Dextrose 50% in Water 50 ML Vial IV.PUSH PRN (19:34)
[2018-07-12] MEDS: Insulin NovoLOG Aspart Correctional Sugar Inj SQ SCH (19:39)
[2018-07-12 20:18] LABS: Thyroid Stimulating Hormone 0.952 uIU/mL (0.358-3.740)
[2018-07-12] MEDS: Heparin - SQ 10,000 UNITS/ML Vial SQ SCH (21:33)
[2018-07-12] MEDS: Senna/Docusate Sodium 8.6/50 MG Tablet PO SCH (21:33)
[2018-07-12] MEDS: guaiFENesin 600 MG ER Tablet PO SCH (21:33)
[2018-07-12 22:02] LABS: Troponin I 0.05 ng/mL (0.02-0.05)
[2018-07-12 22:14] LABS: CKMB Percent 0.5 % (0.0-4.0); Creatine Kinase MB 5.9 ng/mL (0.5-3.6)
[2018-07-13 02:31] LABS: Baso # (Auto) 0.1 th/mm3 (0.0-0.2); Baso % (Auto) 0.8 % (0.0-2.0); Eos # (Auto) 0.2 th/mm3 (0.0-0.4); Eos % (Auto) 2.5 % (0.0-4.0); Hematocrit 30.1 % (35.0-46.0); Lymph # (Auto) 1.1 th/mm3 (1.0-4.8); Lymph % (Auto) 11.5 % (9.0-44.0); Mean Corpuscular HGB Conc 33.2 % (32.0-36.0); Mean Corpuscular Hemoglobin 32.4 pg (27.0-34.0); Mean Corpuscular Volume 97.8 fL (80.0-100.0); Mean Platelet Volume 7.9 fL (7.0-11.0); Mono # (Auto) 0.7 th/mm3 (0.0-0.9); Mono % (Auto) 7.1 % (0.0-8.0); Neut # (Auto) 7.2 th/mm3 (1.8-7.7); Neut % (Auto) 78.1 % (16.0-70.0); Platelet Count 235 th/mm3 (150-450); Red Blood Count 3.08 mil/mm3 (4.00-5.30); Red Cell Distribution Width 14.6 % (11.6-17.2); White Blood Count 9.2 th/mm3 (4.0-11.0)
[2018-07-13 02:51] LABS: Calcium 8.3 mg/dL (8.5-10.1); Carbon Dioxide 29.7 meq/L (21.0-32.0); Potassium 3.8 meq/L (3.5-5.1)
[2018-07-13 02:54] LABS: Troponin I 0.04 ng/mL (0.02-0.05)
[2018-07-13 03:06] LABS: CKMB Percent 0.4 % (0.0-4.0); Creatine Kinase MB 4.2 ng/mL (0.5-3.6)
[2018-07-13] MEDS: Insulin NovoLOG Aspart Correctional Sugar Inj SQ SCH ×4 (03:19→18:14)
[2018-07-13] MEDS ORDERED: Sucralfate 1 GM Tablet PO SCH (08:00)
[2018-07-13] MEDS ORDERED: hydrALAZINE 50 MG Tablet PO ONE (08:49)
[2018-07-13] MEDS: guaiFENesin 600 MG ER Tablet PO SCH ×2 (09:30→20:32)
[2018-07-13] MEDS: Senna/Docusate Sodium 8.6/50 MG Tablet PO SCH ×2 (09:31→20:32)
[2018-07-13] MEDS: Heparin - SQ 10,000 UNITS/ML Vial SQ SCH ×2 (09:31→20:31)
[2018-07-13] MEDS ORDERED: ALPRAZolam 0.25 MG Tablet PO ONE (10:00)
--- NOTE | 2018-07-13 11:47 | P.PNIM ---
Subjective Interval history: Patient reports blood in stool today. Primary complaints this morning her pain , muscle spasms, and anxiety. She came in secondary to urinary tract infection and weakness, she is not feeling better yet. Physical Exam Vital signs: Vital Signs 07/12/18 12:53 07/12/18 13:11 07/12/18 15:00 Temperature 99.0 F Pulse Rate 106 H 104 H 76 Respiratory Rate 18 19 17 Blood Pressure 106/53 L 103/49 L 122/55 L Pulse Oximetry 91 L 94 L 100 07/12/18 17:00 07/12/18 18:00 07/12/18 20:00 Temperature 97.9 F 99.4 F Pulse Rate 64 62 69 Respiratory Rate 19 18 18 Blood Pressure 165/60 H 126/94 H 186/77 H Pulse Oximetry 99 100 98 07/13/18 00:00 07/13/18 04:00 07/13/18 08:00 Temperature 98.1 F 98.7 F 98.7 F Pulse Rate 102 H 102 H 67 Respiratory Rate 18 16 16 Blood Pressure 152/75 H 135/62 225/90 H Pulse Oximetry 94 L 95 99 07/13/18 08:12 Temperature Pulse Rate Respiratory Rate Blood Pressure 202/94 H Pulse Oximetry Intake & Output 07/12/18 07/13/18 07/13/18 18:59 06:59 18:59 Intake Total 600 / 600 Balance 600 / 600 Weight 72.575 kg Intake: IV 600 / 600 NS Inj 500 ML @ Wide Open IV. 500 / 500 SIG BOLUS ONE Rx#:[id number] Rocephin Inj 1,000 MG In NS Inj 100 / 100 100 ML @ 200 mls/hr IV.SIG ONCE ONE Rx#:[id number] Other: Date of Last Bowel Movement 07/08/18 07/13/18 Narrative: GENERAL: NAD, A&Ox3 HEAD: Normocephalic. NECK: Supple, trachea midline. No lymphadenopathy. EYES: No scleral icterus. No injection or drainage. CARDIOVASCULAR: Regular rate and rhythm without murmurs, gallops, or rubs. RESPIRATORY: Breath sounds equal bilaterally. No accessory muscle use. GASTROINTESTINAL: Abdomen soft, non-tender, nondistended. MUSCULOSKELETAL: No cyanosis, or edema. SKIN: Warm and dry. NEURO: No focal neurological deficits. Results - Labs CBC & Chem 7: 07/13/18 02:10 07/13/18 02:10 Laboratory Results - last 24 hr 07/12/18 07/12/18 07/12/18 13:30 13:30 13:30 WBC 10.5 RBC 2.91 L Hgb 9.4 L Hct 28.3 L MCV 97.1 MCH 32.4 MCHC 33.4 RDW 14.9 Plt Count 230 MPV 8.1 Neut % (Auto) 85.8 H Lymph % (Auto) 7.2 L [place] % (Auto) 6.2 Eos % (Auto) 0.3 Baso % (Auto) 0.5 Neut # (Auto) 9.0 H Lymph # (Auto) 0.8 L [place] # (Auto) 0.7 Eos # (Auto) 0.0 Baso # (Auto) 0.1 WBC Differential . Differential Comment Auto diff final Sodium 136 Potassium 4.5 Chloride 100 Carbon Dioxide 27.9 Anion Gap 8 BUN 35 H Creatinine 1.98 H Estimated GFR 24 L POC Glucose Random Glucose 186 H Calcium 8.1 L Total Bilirubin 0.5 AST 28 ALT 34 Alkaline Phosphatase 83 Total Creatine Kinase CK-MB (CK-2) CK-MB (CK-2) % Troponin I 0.05 Total Protein 6.3 L Albumin 2.7 L Vitamin B12 TSH Cancelled Urine Color Urine Clarity Urine pH Ur Specific [place] Urine Protein Urine Glucose (UA) Urine Ketones Urine Occult Blood Urine Nitrate Urine Bilirubin Urine Urobilinogen Ur Leukocyte Esterase Urine RBC Urine WBC Ur Squamous Epith Cells Urine Bacteria Hyaline Casts Micro UA Comment Urine Culture Comments 07/12/18 07/12/18 07/12/18 13:30 15:37 18:34 WBC RBC Hgb Hct MCV MCH MCHC RDW Plt Count MPV Neut % (Auto) Lymph % (Auto) [place] % (Auto) Eos % (Auto) Baso % (Auto) Neut # (Auto) Lymph # (Auto) [place] # (Auto) Eos # (Auto) Baso # (Auto) WBC Differential Differential Comment Sodium Potassium Chloride Carbon Dioxide Anion Gap BUN Creatinine Estimated GFR POC Glucose 68 Random Glucose Calcium Total Bilirubin AST ALT Alkaline Phosphatase Total Creatine Kinase CK-MB (CK-2) CK-MB (CK-2) % Troponin I Total Protein Albumin Vitamin B12 713 TSH 0.952 Urine Color Yellow Urine Clarity Clear Urine pH 5.0 Ur Specific [place] 1.006 Urine Protein Negative Urine Glucose (UA) Negative Urine Ketones Negative Urine Occult Blood Small H Urine Nitrate Negative Urine Bilirubin Negative Urine Urobilinogen Less than 2 Ur Leukocyte Esterase Moderate H Urine RBC 1 Urine WBC 19 H Ur Squamous Epith Cells 1 Urine Bacteria Rare H Hyaline Casts 3 Micro UA Comment Cath-culture ind Urine Culture Comments Cath-cult indicated 07/12/18 07/12/18 07/12/18 18:52 20:00 20:31 WBC RBC Hgb Hct MCV MCH MCHC RDW Plt Count MPV Neut % (Auto) Lymph % (Auto) [place] % (Auto) Eos % (Auto) Baso % (Auto) Neut # (Auto) Lymph # (Auto) [place] # (Auto) Eos # (Auto) Baso # (Auto) WBC Differential Differential Comment Sodium Potassium Chloride Carbon Dioxide Anion Gap BUN Creatinine Estimated GFR POC Glucose 108 131 H Random Glucose Calcium Total Bilirubin AST ALT Alkaline Phosphatase Total Creatine Kinase 1088 H CK-MB (CK-2) 5.9 H CK-MB (CK-2) % 0.5 Troponin I 0.05 Total Protein Albumin Vitamin B12 TSH Urine Color Urine Clarity Urine pH Ur Specific [place] Urine Protein Urine Glucose (UA) Urine Ketones Urine Occult Blood Urine Nitrate Urine Bilirubin Urine Urobilinogen Ur Leukocyte Esterase Urine RBC Urine WBC Ur Squamous Epith Cells Urine Bacteria Hyaline Casts Micro UA Comment Urine Culture Comments 07/13/18 07/13/18 07/13/18 02:10 02:10 03:19 WBC 9.2 RBC 3.08 L Hgb 10.0 L Hct 30.1 L MCV 97.8 MCH 32.4 MCHC 33.2 RDW 14.6 Plt Count 235 MPV 7.9 Neut % (Auto) 78.1 H Lymph % (Auto) 11.5 [place] % (Auto) 7.1 Eos % (Auto) 2.5 Baso % (Auto) 0.8 Neut # (Auto) 7.2 Lymph # (Auto) 1.1 [place] # (Auto) 0.7 Eos # (Auto) 0.2 Baso # (Auto) 0.1 WBC Differential . Differential Comment Auto diff final Sodium 140 Potassium 3.8 Chloride 105 Carbon Dioxide 29.7 Anion Gap 5 BUN 28 H Creatinine 1.52 H Estimated GFR 33 L POC Glucose 133 H Random Glucose 131 H Calcium 8.3 L Total Bilirubin AST ALT Alkaline Phosphatase Total Creatine Kinase 985 H CK-MB (CK-2) 4.2 H CK-MB (CK-2) % 0.4 Troponin I 0.04 Total Protein Albumin Vitamin B12 TSH Urine Color Urine Clarity Urine pH Ur Specific [place] Urine Protein Urine Glucose (UA) Urine Ketones Urine Occult Blood Urine Nitrate Urine Bilirubin Urine Urobilinogen Ur Leukocyte Esterase Urine RBC Urine WBC Ur Squamous Epith Cells Urine Bacteria Hyaline Casts Micro UA Comment Urine Culture Comments 07/13/18 09:24 WBC RBC Hgb Hct MCV MCH MCHC RDW Plt Count MPV Neut % (Auto) Lymph % (Auto) [place] % (Auto) Eos % (Auto) Baso % (Auto) Neut # (Auto) Lymph # (Auto) [place] # (Auto) Eos # (Auto) Baso # (Auto) WBC Differential Differential Comment Sodium Potassium Chloride Carbon Dioxide Anion Gap BUN Creatinine Estimated GFR POC Glucose 105 Random Glucose Calcium Total Bilirubin AST ALT Alkaline Phosphatase Total Creatine Kinase CK-MB (CK-2) CK-MB (CK-2) % Troponin I Total Protein Albumin Vitamin B12 TSH Urine Color Urine Clarity Urine pH Ur Specific [place] Urine Protein Urine Glucose (UA) Urine Ketones Urine Occult Blood Urine Nitrate Urine Bilirubin Urine Urobilinogen Ur Leukocyte Esterase Urine RBC Urine WBC Ur Squamous Epith Cells Urine Bacteria Hyaline Casts Micro UA Comment Urine Culture Comments Microbiology 07/12/18 16:42 Blood - Peripheral Aerobic Blood Culture - Preliminary No growth in 1 day 07/12/18 16:42 Blood - Peripheral Anaerobic Blood Culture - Preliminary No growth in 1 day 07/12/18 16:42 Blood - Peripheral Aerobic Blood Culture - Preliminary No growth in 1 day 07/12/18 16:42 Blood - Peripheral Anaerobic Blood Culture - Preliminary No growth in 1 day - Imaging Impressions Chest X-Ray 07/12/18 13:10 CONCLUSION: No acute cardiopulmonary abnormality is identified. Cardiac silhouette size is at the upper limits for normal. Assessment and Plan - Plan 82-year-old female admitted secondary to weakness and urinary tract infection with evidence for GI bleed Weakness Hx of CVA Worsened from baseline Physical therapy Urinary tract infection Continue ceftriaxone Monitor cultures Follow for improvement GI bleed May be hemorrhoid related Heparin may need to be discontinued if H/H drops Follow hemoglobin Stool studies ordered Diabetes mellitus type 2 Follow blood sugars Insulin sliding scale Diabetic diet Hypertension Continue baseline treatment Follow blood pressures Adjust treatments as needed Hyperlipidemia Continue present treatment Follow as an outpatient PAD Continue Heparin Dr. Freezor following COPD GERD CAD No exacerbations Follow clinically Continue baseline treatments DVT prophylaxis Heparin
[2018-07-13] MEDS ORDERED: Naloxone Inj 0.4 MG/ML Vial IV.PUSH PRN (11:52)
[2018-07-13] MEDS: Gabapentin 300 MG Capsule PO SCH ×2 (12:46→17:27)
[2018-07-13] MEDS: Sucralfate 1 GM Tablet PO SCH ×3 (13:40→22:12)
--- NOTE | 2018-07-13 14:21 | P.PNVS ---
Subjective Subjective/Hospital Course: Pt well known to me, s/p multiple L LE bypasses, re-presented to my clinic with a 5cm L femoral pseudoaneurysm. No skin threat and only mild L LE edema. Pt admitted for UTI. No new SOB, no new CP. L groin ok. Objective Vital Signs / I&O: Vital Signs 07/12/18 15:00 07/12/18 17:00 07/12/18 18:00 Temperature 97.9 F Pulse Rate 76 64 62 Respiratory Rate 17 19 18 Blood Pressure 122/55 L 165/60 H 126/94 H Pulse Oximetry 100 99 100 07/12/18 20:00 07/13/18 00:00 07/13/18 04:00 Temperature 99.4 F 98.1 F 98.7 F Pulse Rate 69 102 H 102 H Respiratory Rate 18 18 16 Blood Pressure 186/77 H 152/75 H 135/62 Pulse Oximetry 98 94 L 95 07/13/18 08:00 07/13/18 08:12 07/13/18 12:00 Temperature 98.7 F 98.8 F Pulse Rate 67 107 H Respiratory Rate 16 16 Blood Pressure 225/90 H 202/94 H 146/83 H Pulse Oximetry 99 96 Intake & Output 07/12/18 07/13/18 07/13/18 18:59 06:59 18:59 Intake Total 600 / 600 Balance 600 / 600 Weight 72.575 kg Intake: IV 600 / 600 NS Inj 500 ML @ Wide Open IV. 500 / 500 SIG BOLUS ONE Rx#:[id number] Rocephin Inj 1,000 MG In NS Inj 100 / 100 100 ML @ 200 mls/hr IV.SIG ONCE ONE Rx#:[id number] Other: Date of Last Bowel Movement 07/08/18 07/13/18 Physical Exam: sitting comfortably. No distress palpable L femoral pulse, no pedal pulses Laboratory Results - last 24 hr 07/12/18 07/12/18 07/12/18 13:30 13:30 15:37 WBC RBC Hgb Hct MCV MCH MCHC RDW Plt Count MPV Neut % (Auto) Lymph % (Auto) [place] % (Auto) Eos % (Auto) Baso % (Auto) Neut # (Auto) Lymph # (Auto) [place] # (Auto) Eos # (Auto) Baso # (Auto) WBC Differential Differential Comment Sodium Potassium Chloride Carbon Dioxide Anion Gap BUN Creatinine Estimated GFR POC Glucose Random Glucose Calcium Total Creatine Kinase CK-MB (CK-2) CK-MB (CK-2) % Troponin I Vitamin B12 713 TSH Cancelled 0.952 Urine Color Yellow Urine Clarity Clear Urine pH 5.0 Ur Specific [place] 1.006 Urine Protein Negative Urine Glucose (UA) Negative Urine Ketones Negative Urine Occult Blood Small H Urine Nitrate Negative Urine Bilirubin Negative Urine Urobilinogen Less than 2 Ur Leukocyte Esterase Moderate H Urine RBC 1 Urine WBC 19 H Ur Squamous Epith Cells 1 Urine Bacteria Rare H Hyaline Casts 3 Micro UA Comment Cath-culture ind Urine Culture Comments Cath-cult indicated 07/12/18 07/12/18 07/12/18 18:34 18:52 20:00 WBC RBC Hgb Hct MCV MCH MCHC RDW Plt Count MPV Neut % (Auto) Lymph % (Auto) [place] % (Auto) Eos % (Auto) Baso % (Auto) Neut # (Auto) Lymph # (Auto) [place] # (Auto) Eos # (Auto) Baso # (Auto) WBC Differential Differential Comment Sodium Potassium Chloride Carbon Dioxide Anion Gap BUN Creatinine Estimated GFR POC Glucose 68 108 Random Glucose Calcium Total Creatine Kinase 1088 H CK-MB (CK-2) 5.9 H CK-MB (CK-2) % 0.5 Troponin I 0.05 Vitamin B12 TSH Urine Color Urine Clarity Urine pH Ur Specific [place] Urine Protein Urine Glucose (UA) Urine Ketones Urine Occult Blood Urine Nitrate Urine Bilirubin Urine Urobilinogen Ur Leukocyte Esterase Urine RBC Urine WBC Ur Squamous Epith Cells Urine Bacteria Hyaline Casts Micro UA Comment Urine Culture Comments 07/12/18 07/13/18 07/13/18 20:31 02:10 02:10 WBC 9.2 RBC 3.08 L Hgb 10.0 L Hct 30.1 L MCV 97.8 MCH 32.4 MCHC 33.2 RDW 14.6 Plt Count 235 MPV 7.9 Neut % (Auto) 78.1 H Lymph % (Auto) 11.5 [place] % (Auto) 7.1 Eos % (Auto) 2.5 Baso % (Auto) 0.8 Neut # (Auto) 7.2 Lymph # (Auto) 1.1 [place] # (Auto) 0.7 Eos # (Auto) 0.2 Baso # (Auto) 0.1 WBC Differential . Differential Comment Auto diff final Sodium 140 Potassium 3.8 Chloride 105 Carbon Dioxide 29.7 Anion Gap 5 BUN 28 H Creatinine 1.52 H Estimated GFR 33 L POC Glucose 131 H Random Glucose 131 H Calcium 8.3 L Total Creatine Kinase 985 H CK-MB (CK-2) 4.2 H CK-MB (CK-2) % 0.4 Troponin I 0.04 Vitamin B12 TSH Urine Color Urine Clarity Urine pH Ur Specific [place] Urine Protein Urine Glucose (UA) Urine Ketones Urine Occult Blood Urine Nitrate Urine Bilirubin Urine Urobilinogen Ur Leukocyte Esterase Urine RBC Urine WBC Ur Squamous Epith Cells Urine Bacteria Hyaline Casts Micro UA Comment Urine Culture Comments 07/13/18 07/13/18 07/13/18 03:19 09:24 12:50 WBC RBC Hgb Hct MCV MCH MCHC RDW Plt Count MPV Neut % (Auto) Lymph % (Auto) [place] % (Auto) Eos % (Auto) Baso % (Auto) Neut # (Auto) Lymph # (Auto) [place] # (Auto) Eos # (Auto) Baso # (Auto) WBC Differential Differential Comment Sodium Potassium Chloride Carbon Dioxide Anion Gap BUN Creatinine Estimated GFR POC Glucose 133 H 105 170 H Random Glucose Calcium Total Creatine Kinase CK-MB (CK-2) CK-MB (CK-2) % Troponin I Vitamin B12 TSH Urine Color Urine Clarity Urine pH Ur Specific [place] Urine Protein Urine Glucose (UA) Urine Ketones Urine Occult Blood Urine Nitrate Urine Bilirubin Urine Urobilinogen Ur Leukocyte Esterase Urine RBC Urine WBC Ur Squamous Epith Cells Urine Bacteria Hyaline Casts Micro UA Comment Urine Culture Comments Microbiology 07/12/18 15:37 Urine Culture - Preliminary Catheterized Urine Immature growth - reincubate 07/12/18 16:42 Aerobic Blood Culture - Preliminary Blood - Peripheral No growth in 1 day Anaerobic Blood Culture - Preliminary No growth in 1 day 07/12/18 16:42 Aerobic Blood Culture - Preliminary Blood - Peripheral No growth in 1 day Anaerobic Blood Culture - Preliminary No growth in 1 day Impressions Chest X-Ray 07/12/18 13:10 CONCLUSION: No acute cardiopulmonary abnormality is identified. Cardiac silhouette size is at the upper limits for normal. Assessment and Plan - Assessment (1) Femoral artery pseudo-aneurysm, left Code(s): I72.4 - Aneurysm of artery of lower extremity Status: Acute - Plan continue antibiotics for UTI safe to proceed with surgery Thursday from my standpoint. Will re-assess again tomorrow and morning. Pt and family aware and agree. Prashant Farrell MD FACS [employer] agricultural services director [facility] - Heart and Vascular Surgery at [facility] [phone]
[2018-07-13 15:59] LABS: Hemoglobin A1c 8.6 % (4.3-6.0)
[2018-07-13] MEDS: Montelukast 10 MG Tablet PO SCH (17:27)
--- NOTE | 2018-07-13 19:54 | ECG ---
Date Performed: 07/12/2018 Time Performed: 12:58:25 PTAGE: 82 years EKG: ELECTRONIC VENTRICULAR PACEMAKER ABNORMAL RHYTHM ECG PREVIOUS TRACING : 06/10/2018 16.38 Since the previous tracing, no significant change noted DOCTOR: Shon Portillo Interpretating Date/Time 07/13/2018 19:52:15
[2018-07-13] MEDS: Budesonide-Formoterol 80/4.5 MCG 6.9 GM Inhaler INH SCH (20:54)
[2018-07-14] MEDS: Insulin NovoLOG Aspart Correctional Sugar Inj SQ SCH ×4 (01:20→18:49)
--- NOTE | 2018-07-14 07:52 | P.PNVS ---
- Pre-operative Note Planned Procedure: L groin pseudoaneurysm repair Interval History: Pt being treated for UTI, but no systemic symptoms. No F/C. Labs: WBC 9.2 th/mm3 (4.0-11.0) 07/13/18 02:10 RBC 3.08 mil/mm3 (4.00-5.30) L 07/13/18 02:10 Hgb 10.0 gm/dL (11.6-15.3) L 07/13/18 02:10 Hct 30.1 % (35.0-46.0) L 07/13/18 02:10 MCV 97.8 fL (80.0-100.0) 07/13/18 02:10 MCH 32.4 pg (27.0-34.0) 07/13/18 02:10 MCHC 33.2 % (32.0-36.0) 07/13/18 02:10 RDW 14.6 % (11.6-17.2) 07/13/18 02:10 Plt Count 235 th/mm3 (150-450) 07/13/18 02:10 MPV 7.9 fL (7.0-11.0) 07/13/18 02:10 Sodium 140 meq/L (136-145) 07/13/18 02:10 Potassium 3.8 meq/L (3.5-5.1) 07/13/18 02:10 Chloride 105 meq/L (98-107) 07/13/18 02:10 Carbon Dioxide 29.7 meq/L (21.0-32.0) 07/13/18 02:10 Anion Gap 5 meq/L (5-15) 07/13/18 02:10 BUN 28 mg/dL (7-18) H 07/13/18 02:10 Random Glucose 131 mg/dL (74-106) H 07/13/18 02:10 Calcium 8.3 mg/dL (8.5-10.1) L 07/13/18 02:10 Blood: T&C 2U PRBC Imaging: ITS Impressions Chest X-Ray 07/12/18 13:10 CONCLUSION: No acute cardiopulmonary abnormality is identified. Cardiac silhouette size is at the upper limits for normal. Orders: NPO after MN Post-operative Destination: PACU Operative site marked: Yes Consent: Informed consent has been obtained from Carin Hill. I have explained the procedure in detail and discussed the risks, benefits, and potential complications. All questions have been answered.
[2018-07-14] MEDS: Senna/Docusate Sodium 8.6/50 MG Tablet PO SCH ×2 (08:28→20:42)
[2018-07-14] MEDS: Sucralfate 1 GM Tablet PO SCH ×4 (08:28→22:32)
[2018-07-14] MEDS: Gabapentin 300 MG Capsule PO SCH ×3 (08:28→17:31)
[2018-07-14] MEDS: Amitriptyline 25 MG Tablet PO SCH (08:29)
[2018-07-14] MEDS: Furosemide 20 MG Tablet PO SCH (08:29)
[2018-07-14] MEDS: Lisinopril 10 MG Tablet PO SCH (08:30)
[2018-07-14] MEDS: guaiFENesin 600 MG ER Tablet PO SCH ×2 (08:30→20:42)
[2018-07-14] MEDS: Heparin - SQ 10,000 UNITS/ML Vial SQ SCH ×2 (08:30→20:42)
[2018-07-14] MEDS ORDERED: PANTOPRAZOLE 40 MG PO SCH (09:00)
--- NOTE | 2018-07-14 09:27 | P.PN ---
Subjective Interval history: Follow up for left femoral pseudoaneurysm, UTI, CORRIE, mild rhabdo, rectal bleeding, weakness. The patient's main complaint is weakness. She states she has difficulty just getting up to use the commode. She also reports constipation today and feels as though there is stool stuck in her rectum. Denies any abdominal pain or nausea/vomiting. Denies fevers/chills. Denies any urinary complaints today. Planning for surgery tomorrow with Dr. Farrell. Physical Exam Vital signs: Vital Signs 07/13/18 12:00 07/13/18 16:00 07/13/18 16:11 Temperature 98.8 F 98.4 F Pulse Rate 107 H 69 Respiratory Rate 16 14 17 Blood Pressure 146/83 H 139/65 Pulse Oximetry 96 99 07/13/18 20:00 07/13/18 20:55 07/13/18 23:51 Temperature 98.8 F 97.7 F Pulse Rate 64 68 71 Respiratory Rate 16 18 16 Blood Pressure 156/67 H 173/73 H Pulse Oximetry 97 90 L 07/14/18 02:47 07/14/18 03:27 07/14/18 04:00 Temperature 98.7 F 97.6 F Pulse Rate 81 101 H Respiratory Rate 18 16 20 Blood Pressure 203/85 H 171/80 H Pulse Oximetry 94 L Intake & Output 07/13/18 07/14/18 07/14/18 18:59 06:59 18:59 Intake Total 100 / 100 Balance 100 / 100 Intake: IV 100 / 100 Rocephin Inj 1,000 MG In NS Inj 100 / 100 100 ML @ 200 mls/hr IV.SIG Q24H [facility] Rx#:[id number] Other: # Voids 3 Date of Last Bowel Movement 07/13/18 07/13/18 07/15/18 Narrative: GENERAL: Well-nourished, well-developed elderly female patient in NAD. Ambulating to the bedside commode. SKIN: Warm and dry. No rash. HEENT: Normocephalic. Atraumatic. Pupils equal and round. Mucous membranes pink and moist. CARDIOVASCULAR: Regular rate and rhythm. No murmur appreciated. RESPIRATORY: No accessory muscle use. Clear to auscultation. Breath sounds equal bilaterally. GASTROINTESTINAL: Abdomen soft, non-tender, nondistended. Normoactive bowel sounds x4. MUSCULOSKELETAL: No obvious deformities. Extremities without clubbing, cyanosis , or edema. NEUROLOGICAL: Awake and alert. No obvious cranial nerve deficits. Moving all extremities spontaneously. Normal speech. PSYCHIATRIC: Mildly anxious mood; insight and judgment normal. Results - Labs CBC & Chem 7: 07/14/18 11:55 07/14/18 11:55 Laboratory Results - last 24 hr 07/12/18 07/13/18 07/13/18 13:30 12:50 17:25 POC Glucose 170 H 218 H Hemoglobin A1c 8.6 H 07/13/18 07/14/18 07/14/18 19:58 01:11 08:20 POC Glucose 193 H 169 H 171 H Hemoglobin A1c Microbiology 07/12/18 15:37 Catheterized Urine Urine Culture - Final 10-50,000 cfu/mL mixed gram positive misael (probable contaminants) 07/12/18 16:42 Blood - Peripheral Aerobic Blood Culture - Preliminary No growth in 1 day 07/12/18 16:42 Blood - Peripheral Anaerobic Blood Culture - Preliminary No growth in 1 day 07/12/18 16:42 Blood - Peripheral Aerobic Blood Culture - Preliminary No growth in 1 day 07/12/18 16:42 Blood - Peripheral Anaerobic Blood Culture - Preliminary No growth in 1 day - Imaging Chest X-Ray 07/12/18 13:10 CONCLUSION: No acute cardiopulmonary abnormality is identified. Cardiac silhouette size is at the upper limits for normal. Assessment and Plan - Plan 82-year-old female admitted secondary to weakness and urinary tract infection with evidence for GI bleed Weakness Hx of CVA Worsened from baseline Physical therapy consulted Left Femoral Pseudoaneurysm S/p LLE bypass Known to Dr. Farrell, consulted Plans for surgery tomorrow 07/15 Urinary tract infection Continue ceftriaxone Monitor cultures Follow for improvement GI bleed May be hemorrhoid related Heparin may need to be discontinued if H/H drops Follow hemoglobin Stool studies ordered Diabetes mellitus type 2 Follow blood sugars Insulin sliding scale Diabetic diet Hypertension Continue baseline treatment Follow blood pressures Adjust treatments as needed Hyperlipidemia Continue present treatment Follow as an outpatient PAD Continue Heparin Dr. Granda following COPD GERD CAD No exacerbations Follow clinically Continue baseline treatments DVT prophylaxis Heparin
[2018-07-14] MEDS ORDERED: Bisacodyl 10 MG Supp RECTAL ONE (10:00)
[2018-07-14] MEDS: ALPRAZolam 0.25 MG Tablet PO PRN (11:23)
[2018-07-14] MEDS: Budesonide-Formoterol 80/4.5 MCG 6.9 GM Inhaler INH SCH ×2 (11:24→20:43)
[2018-07-14 12:45] LABS: Hematocrit 28.3 % (35.0-46.0); Hemoglobin 9.4 gm/dL (11.6-15.3); Mean Corpuscular Hemoglobin 32.1 pg (27.0-34.0); Mean Corpuscular Volume 97.3 fL (80.0-100.0); Mean Platelet Volume 8.5 fL (7.0-11.0); Platelet Count 235 th/mm3 (150-450); Red Blood Count 2.91 mil/mm3 (4.00-5.30); Red Cell Distribution Width 15.2 % (11.6-17.2); White Blood Count 6.8 th/mm3 (4.0-11.0)
[2018-07-14 13:11] LABS: Calcium 8.4 mg/dL (8.5-10.1); Carbon Dioxide 27.6 meq/L (21.0-32.0); Potassium 4.2 meq/L (3.5-5.1)
[2018-07-14 13:43] LABS: CKMB Percent 0.3 % (0.0-4.0); Creatine Kinase MB 1.5 ng/mL (0.5-3.6)
[2018-07-14] MEDS: Montelukast 10 MG Tablet PO SCH (17:31)
[2018-07-15] MEDS: Insulin NovoLOG Aspart Correctional Sugar Inj SQ SCH ×4 (01:19→18:16)
[2018-07-15] MEDS ORDERED: Heparin 10,000 UNITS/10 ML Vial (for IV use) ONE (06:39)
[2018-07-15] MEDS ORDERED: Protamine Sulfate Inj 50 MG/5 ML Vial ONE (06:39)
[2018-07-15] MEDS ORDERED: Heparin/NS PF Inj 500 ML ONE (06:40)
[2018-07-15] MEDS ORDERED: Bupivacaine PF 0.5% Inj 30 ML Vial ONE (06:40)
[2018-07-15] MEDS ORDERED: Thrombin Topical 20,000 UNIT Spray Kit TOPICAL ONE (06:40)
--- NOTE | 2018-07-15 09:39 | P.OP ---
- Preoperative Diagnosis (1) Femoral artery pseudo-aneurysm, left - Postoperative Diagnosis (1) Femoral artery pseudo-aneurysm, left Date of procedure: 07/15/18 Procedure: L femoral exploration Implants: none Anesthesia: GETA Surgeon: Prashant Farrell MD Computer Aided Design Technician: Prashant Longo Estimated blood loss (mL): 20 IV fluids (mL): 600 Urine output (mL): 200 Pathology: none sent Operation and Findings: inflamed chronic appearing pseudoaneurysm. no infection. discussed with family - chronicity doesn't warrant repair given extent of reconstruction required. will continue to observe.
[2018-07-15] MEDS ORDERED: fentaNYL Citrate Inj 100 MCG/2 ML Ampul ONE (10:14)
[2018-07-15] MEDS ORDERED: HYDROmorphone PF Inj 2 MG/ML Vial ONE (10:14)
[2018-07-15] MEDS: HYDROmorphone PF Inj 2 MG/ML Vial ONE (10:32)
[2018-07-15] MEDS: Budesonide-Formoterol 80/4.5 MCG 6.9 GM Inhaler INH SCH ×2 (11:33→21:50)
[2018-07-15] MEDS: Lisinopril 10 MG Tablet PO SCH (11:33)
[2018-07-15] MEDS: Furosemide 20 MG Tablet PO SCH (11:33)
[2018-07-15] MEDS: Gabapentin 300 MG Capsule PO SCH ×2 (11:34→13:25)
[2018-07-15] MEDS: Senna/Docusate Sodium 8.6/50 MG Tablet PO SCH ×2 (11:34→21:42)
[2018-07-15] MEDS: guaiFENesin 600 MG ER Tablet PO SCH ×2 (11:34→21:42)
[2018-07-15] MEDS: Amitriptyline 25 MG Tablet PO SCH (11:41)
[2018-07-15] MEDS: Sucralfate 1 GM Tablet PO SCH ×4 (11:42→21:42)
[2018-07-15] MEDS ORDERED: hydrALAZINE HCl Inj 20 MG/ML Vial IV.PUSH ONE ×2 (12:00→15:42)
[2018-07-15] MEDS ORDERED: Sodium Chlor 0.9% Inj 500 ML IV.SIG ONE (12:00)
[2018-07-15] MEDS ORDERED: Lidocaine PF 1% Inj 5 ML Syringe INFILTRATN ONE (12:00)
[2018-07-15] MEDS: Heparin - SQ 10,000 UNITS/ML Vial SQ SCH (12:37)
--- NOTE | 2018-07-15 14:16 | MP ---
cc: Prashant Farrell MD DATE OF OPERATION: 07/15/2018 PREOPERATIVE DIAGNOSIS: Left common femoral artery pseudoaneurysm. POSTOPERATIVE DIAGNOSIS: Left common femoral artery pseudoaneurysm. PROCEDURE PERFORMED: Exploration of left common femoral artery. ATTENDING SURGEON: Prashant Farrell MD. PIN CLEANER SURGEON: Prashant Longo. ANESTHESIA: General. INDICATIONS: Ms. Hill is an 82-year-old lady with a left common femoral artery pseudoaneurysm. She was taken to the operating room for exploration. Intraoperatively, it was found to be very chronic and needs extensive repair and it was inflamed and the repair would be extraordinarily morbid and so decision, after discussion with the family, was to leave the pseudoaneurysm. DESCRIPTION OF PROCEDURE: Informed consent was obtained from the patient. She was taken to the operating room and placed supine on the operating table. An appropriate timeout was taken to ensure the patient's identity, the operative site, and planned procedure. The administration of antibiotics was completed prior to skin incision in the form of 1 g of vancomycin. Vancomycin was chosen because of the patient's PENICILLIN ALLERGY and preoperative length of stay exceeded 48 hours. Everyone in the room agreed with timeout and we proceeded. She was prepped from her nipples to her toes. The left groin was incised with a 10 blade, carried down through subcutaneous tissue with electrocautery. The inguinal ligament was divided and a careful tedious dissection was then made over the external iliac artery. We dissected this circumferentially enough to place a clamp on it. It was noted to be quite inflamed and then we dissected down to the common femoral artery. There were at least 2 prior bypasses. They were easily seen emanating from the common femoral artery and because of the inflammation decision was made that this would be prohibitive to dissect any further. The wound was infiltrated with Marcaine and closed with 2-0 Polysorb, 3-0 Polysorb, and 4-0 Monocryl. Sponge and needle counts were correct at the end of the case. I was present, scrubbed, and performed the entire procedure. Prashant Farrell MD RJF/rd/ll , 12:28 PM , 12:35 PM PAPITO
[2018-07-15] MEDS: predniSONE 20 MG Tablet PO SCH (16:08)
[2018-07-15] MEDS: Polyethylene Glycol 3350 17 GM Packet PO SCH (16:08)
--- NOTE | 2018-07-15 16:33 | P.PN ---
Subjective Interval history: Follow up for left femoral pseudoaneurysm, UTI, CORRIE, mild rhabdo, rectal bleeding, weakness. The patient is seen s/p evaluation in OR by Dr. Farrell, no intervention performed. She reports some pain at the left groin site. Wound vac in place. The patient's main complaint is constipation as she still has not had a BM despite Dulcolax yesterday. Denies any further rectal bleeding. She is requesting MOM and would like to try Miralax. Denies any significant abdominal pain, nausea/vomiting, or fevers/chills. BP has been elevated into the 190s. She reports associated headache when BP is uncontrolled. Denies any chest pain. She is also reporting mild wheezing today despite duonebs. Denies any significant cough or sputum production. Denies any other medical complaints at this time. Physical Exam Vital signs: Vital Signs 07/14/18 20:00 07/14/18 20:10 07/15/18 00:00 Temperature 98.2 F 98.5 F Pulse Rate 60 60 59 L Respiratory Rate 19 16 19 Blood Pressure 134/60 193/88 H Pulse Oximetry 94 L 97 07/15/18 03:38 07/15/18 04:00 07/15/18 09:57 Temperature 98.9 F 97.4 F L Pulse Rate 60 61 60 Respiratory Rate 16 18 12 Blood Pressure 150/65 H 169/79 H Pulse Oximetry 95 100 07/15/18 10:00 07/15/18 10:15 07/15/18 10:30 Temperature Pulse Rate 60 60 60 Respiratory Rate 12 18 15 Blood Pressure 167/79 H 172/76 H 168/74 H Pulse Oximetry 100 100 100 07/15/18 10:45 07/15/18 11:00 07/15/18 11:05 Temperature 97.5 F L Pulse Rate 60 60 Respiratory Rate 16 12 16 Blood Pressure 162/66 H 157/70 H Pulse Oximetry 100 100 07/15/18 12:00 07/15/18 13:00 07/15/18 13:17 Temperature 97.3 F L Pulse Rate 60 64 62 Respiratory Rate 16 18 Blood Pressure 147/69 H 180/74 H Pulse Oximetry 98 98 07/15/18 14:00 07/15/18 14:20 07/15/18 15:00 Temperature Pulse Rate 60 76 59 L Respiratory Rate 18 16 Blood Pressure 146/90 H Pulse Oximetry 99 100 07/15/18 15:17 Temperature Pulse Rate 60 Respiratory Rate 18 Blood Pressure 146/65 H Pulse Oximetry 99 Intake & Output 07/14/18 07/15/18 07/15/18 18:59 06:59 18:59 Intake Total 100 / 100 120 / 120 820 / 820 Output Total 720 / 720 Balance 100 / 100 120 / 120 100 / 100 Intake: IV 100 / 100 0 / 0 Heparin/NS PF Inj 500 ML @ 0 0 / 0 mls/hr .ROUTE .[facility] Rx#: [id number] Rocephin Inj 1,000 MG In NS Inj 100 / 100 100 ML @ 200 mls/hr IV.SIG Q24H [facility] Rx#:[id number] Oral 120 / 120 120 / 120 Anesthesia Amount 700 / 700 Output: Estimated Blood Loss 20 / 20 Urine Amount (Catheter) 700 / 700 Indwelling Urethral Catheter 700 / 700 Other: # Voids 4 # Urine Diapers 2 Date of Last Bowel Movement 07/15/18 07/15/18 # Bowel Movements 1 Narrative: GENERAL: Well-nourished, well-developed elderly female patient in [facility]. SKIN: Warm and dry. No rash. HEENT: Normocephalic. Atraumatic. Pupils equal and round. Mucous membranes pink and moist. CARDIOVASCULAR: Regular rate and rhythm. No murmur appreciated. RESPIRATORY: No accessory muscle use. Diffuse expiratory wheezing. Breath sounds equal bilaterally. GASTROINTESTINAL: Abdomen soft, non-tender, nondistended. Normoactive bowel sounds x4. MUSCULOSKELETAL: No obvious deformities. Extremities without clubbing, cyanosis , or edema. Left anterior groin with wound vac in place, TTP, no surrounding erythema. NEUROLOGICAL: Awake and alert. No obvious cranial nerve deficits. Moving all extremities spontaneously. Normal speech. PSYCHIATRIC: Mildly anxious mood; insight and judgment normal. - Urinary Catheter Management Indwelling Urethral Catheter Cath placed during this visit: yes Reason for continuing: Hourly intake/output Insertion date: 07/15/18 Insertion time: 08:25 Results - Labs CBC & Chem 7: 07/14/18 11:55 07/14/18 11:55 Laboratory Results - last 24 hr 07/12/18 07/14/18 07/14/18 20:00 17:31 20:12 POC Glucose 163 H 163 H Vit D 1,25-Dihydroxy 21 MTS Gel Crossmatch 07/15/18 07/15/18 07/15/18 01:10 06:47 08:37 POC Glucose 290 H 177 H Vit D 1,25-Dihydroxy MTS Gel Crossmatch See Detail 07/15/18 07/15/18 10:06 13:24 POC Glucose 160 H 184 H Vit D 1,25-Dihydroxy MTS Gel Crossmatch Microbiology 07/12/18 16:42 Blood - Peripheral Aerobic Blood Culture - Preliminary No growth in 3 days 07/12/18 16:42 Blood - Peripheral Anaerobic Blood Culture - Preliminary No growth in 3 days 07/12/18 16:42 Blood - Peripheral Aerobic Blood Culture - Preliminary No growth in 3 days 07/12/18 16:42 Blood - Peripheral Anaerobic Blood Culture - Preliminary No growth in 3 days - Imaging Chest X-Ray 07/12/18 13:10 CONCLUSION: No acute cardiopulmonary abnormality is identified. Cardiac silhouette size is at the upper limits for normal. - Procedures 07/15/18 - Left femoral exploration, showed inflamed chronic appearing pseudoaneurysm, no infection, no intervention performed. Wound vac in place. Assessment and Plan - Plan 82-year-old female admitted secondary to weakness and urinary tract infection with concern for GI bleed Weakness, Hx of CVA -Worsened from baseline, suspect multifactorial with recent hospitalizations, UTI, GIB -Physical therapy consulted, recommends rehab, case management assisting with placement PAD, Left Femoral Pseudoaneurysm S/p LLE bypass -Known to Dr. Farrell, consulted -Patient's Eliquis is on hold for now -Continue heparin sq -07/15 S/p Left femoral exploration, showed inflamed chronic appearing pseudoaneurysm, no infection, no intervention performed. -Wound vac in place Urinary tract infection -S/p treatment with IV ceftriaxone -Urine culture with 10-50K mixed misael, probable contaminants -Discontinued antibiotics GI bleed -Strongly suspect hemorrhoid related, patient straining with constipation, only with streaks of bright red blood, now resolved -Hemoglobin stable at 9.4 -No further rectal bleeding -Continue to monitor Diabetes mellitus type 2 -Follow blood sugars -Insulin sliding scale -Resume patient's lantus (converted to levemir) -Diabetic diet Accelerated Hypertension with Hypertensive Urgency -Continue lisinopril, bystolic -Give IV Vasotec prn SBP >180 or DBP >100 -Monitor BP, adjust antihypertensives as needed Constipation -Suspect opiate induced constipation -Patient reporting no BM since arrival despite receiving eligio-colace and dulcolax -Continue eligio-colace 1tab po bid -Check abdominal xray -Added Miralax daily, and discussed with RN to give MOM -Monitor for BM Hyperlipidemia -Continue statin -Follow as an outpatient COPD Exacerbation -Patient with evidence of wheezing on exam -Give short course prednisone 20mg qd x3days -Continue duonebs q6h -Continue Symbicort -O2 as needed -Incentive spirometry GERD -Continue patient's protonix and carafate All other medical conditions stable, continue home medications as appropriate. DVT prophylaxis: Heparin sq Discharge Planning: Needs rehab placement. Still treating uncontrolled blood pressures and constipation. Possible discharge in 1-2 days if cleared by Dr. Farrell and if BP controlled and constipation resolved.
--- NOTE | 2018-07-15 17:11 | XR ---
EXAM DATE: 07/15/2018 5:02 PM EDT AGE/SEX: 82 years / Female INDICATIONS: Abdominal pain. Patient states post abdominal surgery for aneurysm. CLINICAL DATA: This is the patient's initial encounter. Patient reports that signs and symptoms have been present for 4 - 6 days and indicates a pain score of 10/10. MEDICAL/SURGICAL HISTORY: . Myocardial infarction. Congestive heart failure. Hypercholesterole kd. Diabetic. . Cardiac stent COMPARISON: No prior exams available for comparison. FINDINGS: The abdominal bowel gas pattern is normal. There is a moderate amount of stool throughout the colon. There is no abnormal dilatation of the large or small bowel. No definite calcifications overlying th e right kidney. There may be a calcification measuring 1.3 cm overlying the left kidney versus stool. . There are surgical clips in the right upper quadrant. There are vascular calcifications throughout the aorta.. There is diffuse degenerative changes of the bony structures. CONCLUSION: 1. Benign bowel gas pattern with a moderate amount of stool throughout the entire colon. 2. Possible calcification overlying the left kidney measuring 1.3 cm versus stool. 3. Diffusely calcified aorta. Electronically signed by: Beto Benitez MD 07/15/2018 5:10 PM EDT
[2018-07-15] MEDS: Montelukast 10 MG Tablet PO SCH (17:56)
[2018-07-15] MEDS: LORazepam 1 MG Tablet PO SCH (21:41)
[2018-07-15] MEDS: Gabapentin 400 MG Capsule PO SCH (21:42)
[2018-07-15] MEDS: Insulin Detemir Inj 1,000 UNIT/10 ML Vial SQ SCH (21:46)
[2018-07-16] MEDS: Insulin NovoLOG Aspart Correctional Sugar Inj SQ SCH ×4 (02:13→18:34)
[2018-07-16] MEDS: Lisinopril 10 MG Tablet PO SCH (09:31)
[2018-07-16] MEDS: guaiFENesin 600 MG ER Tablet PO SCH ×2 (09:31→21:00)
[2018-07-16] MEDS: Amitriptyline 25 MG Tablet PO SCH (09:31)
[2018-07-16] MEDS: Furosemide 20 MG Tablet PO SCH (09:31)
[2018-07-16] MEDS: Sucralfate 1 GM Tablet PO SCH ×4 (09:31→21:00)
[2018-07-16] MEDS: predniSONE 20 MG Tablet PO SCH (09:31)
[2018-07-16] MEDS: Senna/Docusate Sodium 8.6/50 MG Tablet PO SCH ×2 (09:31→21:00)
[2018-07-16] MEDS: Gabapentin 100 MG Capsule PO SCH ×2 (09:32→13:27)
[2018-07-16] MEDS: Ferrous Sulfate 325 MG Tablet PO SCH (09:32)
[2018-07-16] MEDS: Polyethylene Glycol 3350 17 GM Packet PO SCH (09:32)
[2018-07-16] MEDS: Heparin - SQ 10,000 UNITS/ML Vial SQ SCH ×2 (09:32→21:00)
[2018-07-16] MEDS: Insulin Detemir Inj 1,000 UNIT/10 ML Vial SQ SCH ×2 (09:33→21:00)
[2018-07-16] MEDS: Budesonide-Formoterol 80/4.5 MCG 6.9 GM Inhaler INH SCH ×2 (09:49→21:00)
--- NOTE | 2018-07-16 10:25 | P.PNVS ---
Subjective Post Op Day #: 1 Procedure: L femoral exploration Subjective/Hospital Course: looks great c/o appropriate pain L groin also c/o productive cough Objective Vital Signs / I&O: Vital Signs 07/15/18 10:30 07/15/18 10:45 07/15/18 11:00 Temperature 97.5 F L Pulse Rate 60 60 60 Respiratory Rate 15 16 12 Blood Pressure 168/74 H 162/66 H 157/70 H Pulse Oximetry 100 100 100 07/15/18 11:05 07/15/18 12:00 07/15/18 13:00 Temperature 97.3 F L Pulse Rate 60 64 Respiratory Rate 16 16 Blood Pressure 147/69 H Pulse Oximetry 98 07/15/18 13:17 07/15/18 14:00 07/15/18 14:20 Temperature Pulse Rate 62 60 76 Respiratory Rate 18 18 Blood Pressure 180/74 H Pulse Oximetry 98 99 07/15/18 15:00 07/15/18 15:17 07/15/18 16:00 Temperature Pulse Rate 59 L 60 65 Respiratory Rate 16 18 Blood Pressure 146/90 H 146/65 H Pulse Oximetry 100 99 07/15/18 17:00 07/15/18 17:17 07/15/18 18:00 Temperature Pulse Rate 65 61 63 Respiratory Rate 18 Blood Pressure 147/71 H Pulse Oximetry 97 07/15/18 19:00 07/15/18 20:00 07/15/18 21:00 Temperature 98.7 F Pulse Rate 93 H 60 64 Respiratory Rate 18 Blood Pressure 195/82 H Pulse Oximetry 94 L 07/15/18 21:05 07/15/18 21:17 07/15/18 22:00 Temperature 98.7 F Pulse Rate 74 103 H 68 Respiratory Rate 18 18 Blood Pressure 134/68 Pulse Oximetry 95 94 L 07/15/18 23:00 07/15/18 23:40 07/16/18 00:00 Temperature 98.7 F Pulse Rate 60 98 H Respiratory Rate 18 18 Blood Pressure 134/68 Pulse Oximetry 94 L 07/16/18 01:00 07/16/18 02:00 07/16/18 02:14 Temperature Pulse Rate 76 73 Respiratory Rate 18 Blood Pressure Pulse Oximetry 07/16/18 03:00 07/16/18 04:00 07/16/18 05:00 Temperature 98.1 F Pulse Rate 67 72 63 Respiratory Rate 18 Blood Pressure 128/87 Pulse Oximetry 96 07/16/18 06:00 07/16/18 09:18 Temperature Pulse Rate 65 60 Respiratory Rate Blood Pressure Pulse Oximetry 98 Intake & Output 07/15/18 07/16/18 07/16/18 18:59 06:59 18:59 Intake Total 2060 / 2060 720 / 720 Output Total 2720 / 2720 900 / 900 Balance -660 / -660 -180 / -180 Weight 76 kg Intake: IV 0 / 0 Heparin/NS PF Inj 500 ML @ 0 0 / 0 mls/hr .ROUTE .[facility] Rx#: [id number] Oral 1360 / 1360 720 / 720 Anesthesia Amount 700 / 700 Output: Estimated Blood Loss Urine Amount (Catheter) 2700 / 2700 900 / 900 Indwelling Urethral Catheter 2700 / 2700 900 / 900 Other: Date of Last Bowel Movement 07/15/18 Exam: + rattling cough L groin soft, appropriately tender, no hematoma Laboratory Results - last 24 hr 07/12/18 07/15/18 07/15/18 20:00 06:47 13:24 POC Glucose 184 H Vit D 1,25-Dihydroxy 21 MTS Gel Crossmatch See Detail 07/15/18 07/16/18 07/16/18 17:54 02:11 02:12 POC Glucose 267 H 309 H 325 H Vit D 1,25-Dihydroxy MTS Gel Crossmatch 07/16/18 06:04 POC Glucose 250 H Vit D 1,25-Dihydroxy MTS Gel Crossmatch Microbiology 07/12/18 16:42 Aerobic Blood Culture - Preliminary Blood - Peripheral No growth in 3 days Anaerobic Blood Culture - Preliminary No growth in 3 days 07/12/18 16:42 Aerobic Blood Culture - Preliminary Blood - Peripheral No growth in 3 days Anaerobic Blood Culture - Preliminary No growth in 3 days Assessment and Plan - Assessment (1) Femoral artery pseudo-aneurysm, left Code(s): I72.4 - Aneurysm of artery of lower extremity Status: Acute - Plan POD#1 intraoperative decision to abort repair given chronicity and likely stability, especially in light of magnitude of repair and fraility of patient 1. CXR for cough 2. OOB/PT 3. agree with primary service that she'll need rehab 4. Prevena wound coverage until next week - can be removed as outpatient
--- NOTE | 2018-07-16 14:37 | P.PN ---
Subjective Interval history: Follow up Pseudoaneurysm s/p repair 07/16/18-patient seen and examined; some SOB and cough without any production. Afebrile Physical Exam Vital signs: Vital Signs 07/15/18 15:00 07/15/18 15:17 07/15/18 16:00 Temperature Pulse Rate 59 L 60 65 Respiratory Rate 16 18 Blood Pressure 146/90 H 146/65 H Pulse Oximetry 100 99 07/15/18 17:00 07/15/18 17:17 07/15/18 18:00 Temperature Pulse Rate 65 61 63 Respiratory Rate 18 Blood Pressure 147/71 H Pulse Oximetry 97 07/15/18 19:00 07/15/18 20:00 07/15/18 21:00 Temperature 98.7 F Pulse Rate 93 H 60 64 Respiratory Rate 18 Blood Pressure 195/82 H Pulse Oximetry 94 L 07/15/18 21:05 07/15/18 21:17 07/15/18 22:00 Temperature 98.7 F Pulse Rate 74 103 H 68 Respiratory Rate 18 18 Blood Pressure 134/68 Pulse Oximetry 95 94 L 07/15/18 23:00 07/15/18 23:40 07/16/18 00:00 Temperature 98.7 F Pulse Rate 60 98 H Respiratory Rate 18 18 Blood Pressure 134/68 Pulse Oximetry 94 L 07/16/18 01:00 07/16/18 02:00 07/16/18 02:14 Temperature Pulse Rate 76 73 Respiratory Rate 18 Blood Pressure Pulse Oximetry 07/16/18 03:00 07/16/18 04:00 07/16/18 05:00 Temperature 98.1 F Pulse Rate 67 72 63 Respiratory Rate 18 Blood Pressure 128/87 Pulse Oximetry 96 07/16/18 06:00 07/16/18 09:18 Temperature Pulse Rate 65 60 Respiratory Rate Blood Pressure Pulse Oximetry 98 Intake & Output 07/15/18 07/16/18 07/16/18 18:59 06:59 18:59 Intake Total 0 / 2060 720 / 720 Output Total 2720 / 2720 900 / 900 Balance -660 / -660 -180 / -180 Weight 76 kg Intake: IV 0 / 0 Heparin/NS PF Inj 500 ML @ 0 0 / 0 mls/hr .ROUTE .[facility] Rx#: [id number] Oral 1360 / 1360 720 / 720 Anesthesia Amount 700 / 700 Output: Estimated Blood Loss Urine Amount (Catheter) 2700 / 2700 900 / 900 Indwelling Urethral Catheter 2700 / 2700 900 / 900 Other: Date of Last Bowel Movement 07/15/18 Narrative: GENERAL: NAD. SKIN: Warm and dry. No rash. HEENT: Normocephalic. Atraumatic. Pupils equal and round. Mucous membranes pink and moist. CARDIOVASCULAR: Regular rate and rhythm. No murmur appreciated. RESPIRATORY: No accessory muscle use. Diffuse expiratory wheezing. Breath sounds equal bilaterally. GASTROINTESTINAL: Abdomen soft, non-tender, nondistended. Normoactive bowel sounds x4. MUSCULOSKELETAL: No obvious deformities. Extremities without clubbing, cyanosis , or edema. Left anterior groin with wound vac in place, TTP, no surrounding erythema. NEUROLOGICAL: Awake and alert. No obvious cranial nerve deficits. Moving all extremities spontaneously. Normal speech. PSYCHIATRIC: Mildly anxious mood; insight and judgment normal. - Urinary Catheter Management Indwelling Urethral Catheter Cath placed during this visit: yes Reason for continuing: Other continuation reason Insertion date: 07/15/18 Insertion time: 08:25 Results - Labs CBC & Chem 7: 07/14/18 11:55 07/14/18 11:55 Laboratory Results - last 24 hr 07/15/18 07/15/18 07/16/18 06:47 17:54 02:11 POC Glucose 267 H 309 H MTS Gel Crossmatch See Detail 07/16/18 07/16/18 07/16/18 02:12 06:04 12:05 POC Glucose 325 H 250 H 234 H MTS Gel Crossmatch Microbiology 07/12/18 16:42 Blood - Peripheral Aerobic Blood Culture - Preliminary No growth in 4 days 07/12/18 16:42 Blood - Peripheral Anaerobic Blood Culture - Preliminary No growth in 4 days 07/12/18 16:42 Blood - Peripheral Aerobic Blood Culture - Preliminary No growth in 4 days 07/12/18 16:42 Blood - Peripheral Anaerobic Blood Culture - Preliminary No growth in 4 days - Imaging Impressions Abdomen X-Ray 07/15/18 00:00 CONCLUSION: 1. Benign bowel gas pattern with a moderate amount of stool throughout the entire colon. 2. Possible calcification overlying the left kidney measuring 1.3 cm versus stool. 3. Diffusely calcified aorta. - Procedures 07/15/18 - Left femoral exploration, showed inflamed chronic appearing pseudoaneurysm, no infection, no intervention performed. Wound vac in place. Assessment and Plan - Plan 82-year-old female with Weakness, Hx of CVA -Worsened from baseline, suspect multifactorial with recent hospitalizations, UTI, GIB -Physical therapy consulted, recommends rehab PAD, Left Femoral Pseudoaneurysm S/p LLE bypass -Dr. Farrell ff -Patient's Eliquis is on hold for now -Continue heparin sq -07/15 S/p Left femoral exploration, showed inflamed chronic appearing pseudoaneurysm, no infection, no intervention performed. -Wound vac in place Urinary tract infection -S/p treatment with IV ceftriaxone GI bleed -Strongly suspect hemorrhoid related, patient straining with constipation, only with streaks of bright red blood, now resolved -Hemoglobin stable at 9.4 Diabetes mellitus type 2 -Follow blood sugars -Insulin sliding scale -continue patient's Lantus Accelerated Hypertension with Hypertensive Urgency -Continue lisinopril, bystolic -Give IV Vasotec prn SBP >180 or DBP >100 Constipation -Suspect opiate induced constipation -Continue eligio-colace 1tab po bid -Added Miralax daily Hyperlipidemia -Continue statin -Follow as an outpatient COPD Exacerbation -On course prednisone 20mg qd x3days -Continue duonebs q6h -Continue Symbicort -O2 as needed -Incentive spirometry GERD -Continue patient's Protonix and Carafate All other medical conditions stable, continue home medications as appropriate.
--- NOTE | 2018-07-16 15:08 | P.DS ---
Date of admission: 07/15/18 16:14 Primary care physician: UNKNOWN Anticipated date of discharge: 07/19/18 Brief History from admission: This is a pleasant 82 y/o Female with CKD, previous TID, Previous UTIs, CVA, DM II, who came to ER with complaint of that she woke up today not feeling well, generally weak, especially after she went to her granddaughter's a few days ago, has not been eating and drinking as well. She denies any chest pain, trouble breathing, vomiting, or other symptoms. Stable seen in her bedroom, she came due to that is not been feeling well for the last two weeks, some weakness found in ER UTI started management, admitted for observation, asked for conference planning manager and PT evaluation for probable discharge tomorrow and continue Antibiotics by mouth DS: Medications - Discharge Medications Prescriptions: azithromycin 250 mg PO DAILY #2 tab benzonatate [Tessalon Perles] 200 mg PO Q8H PRN #10 cap PRN Reason: Cough budesonide-formoterol [Symbicort] 2 puff INH BID #1 g hydralazine 25 mg PO TID #90 tab lisinopril 10 mg PO DAILY #30 tab lorazepam 1 mg PO DAILY #10 mg oxycodone 30 mg PO Q4-6H PRN #10 mg PRN Reason: Pain prednisone 10 mg PO DAILY #3 tab tiotropium bromide [Spiriva with HandiHaler] 18 mcg INH DAILY #1 inh DS: Summary Hospital Course: While in hospital, patient was treated for Weakness, Hx of CVA Improving as patient not able to ambulate with assistance from physical therapy was consulted Will discharge to rehab today PAD, Left Femoral Pseudoaneurysm S/p LLE bypass -Dr. Farrell ff -Patient's Christie is on hold for now -Continue heparin sq -07/15 S/p Left femoral exploration, showed inflamed chronic appearing pseudoaneurysm, no infection, no intervention performed. Urinary tract infection -S/p treatment with IV ceftriaxone GI bleed -Strongly suspect hemorrhoid related, patient straining with constipation, only with streaks of bright red blood, now resolved -Hemoglobin stable Diabetes mellitus type 2 -Follow blood sugars -Insulin sliding scale -continue patient's Lantus Accelerated Hypertension with Hypertensive Urgency-resolved -Continue lisinopril, bystolic, add hydralazine as needed -Give IV Vasotec prn SBP >180 or DBP >100 Constipation -Suspect opiate induced constipation -Resolved with eligio-colace 1tab po bid Hyperlipidemia -Treated with statin -Follow as an outpatient COPD Exacerbation-resolved -d/c Solu-Medrol and start p.o. prednisone 10 mg daily and continue with Spiriva , azithromycin 250 mg daily -Continue duonebs q6h -Continue Symbicort -O2 as needed -Incentive spirometry, Acapella GERD -Treated with patient's Protonix and Carafate All other medical conditions stable, continue home medications as appropriate. - Time Spent with Patient Total time spent providing and/or coordinating discharge services: Greater than 30 minutes - Quality: VTE Deep Vein Thrombosis/Pulmonary Embolism Present on Admission: Yes Exam Vital signs: Vital Signs 07/15/18 15:17 07/15/18 16:00 07/15/18 17:00 Temperature Pulse Rate 60 65 65 Respiratory Rate 18 Blood Pressure 146/65 H Pulse Oximetry 99 07/15/18 17:17 07/15/18 18:00 07/15/18 19:00 Temperature 98.7 F Pulse Rate 61 63 93 H Respiratory Rate 18 18 Blood Pressure 147/71 H 195/82 H Pulse Oximetry 97 94 L 07/15/18 20:00 07/15/18 21:00 07/15/18 21:05 Temperature Pulse Rate 60 64 74 Respiratory Rate 18 Blood Pressure Pulse Oximetry 95 07/15/18 21:17 07/15/18 22:00 07/15/18 23:00 Temperature 98.7 F 98.7 F Pulse Rate 103 H 68 60 Respiratory Rate 18 18 Blood Pressure 134/68 134/68 Pulse Oximetry 94 L 94 L 07/15/18 23:40 07/16/18 00:00 07/16/18 01:00 Temperature Pulse Rate 98 H 76 Respiratory Rate 18 Blood Pressure Pulse Oximetry 07/16/18 02:00 07/16/18 02:14 07/16/18 03:00 Temperature 98.1 F Pulse Rate 73 67 Respiratory Rate 18 18 Blood Pressure 128/87 Pulse Oximetry 96 07/16/18 04:00 07/16/18 05:00 07/16/18 06:00 Temperature Pulse Rate 72 63 65 Respiratory Rate Blood Pressure Pulse Oximetry 07/16/18 09:18 Temperature Pulse Rate 60 Respiratory Rate Blood Pressure Pulse Oximetry 98 Intake & Output 07/15/18 07/16/18 07/16/18 18:59 06:59 18:59 Intake Total 2060 / 2060 720 / 720 Output Total 2720 / 2720 900 / 900 Balance -660 / -660 -180 / -180 Weight 76 kg Intake: IV 0 / 0 Heparin/NS PF Inj 500 ML @ 0 0 / 0 mls[id number] Oral 1360 / 1360 720 / 720 Anesthesia Amount 700 / 700 Output: Estimated Blood Loss Urine Amount (Catheter) 2700 / 2700 900 / 900 Indwelling Urethral Catheter 2700 / 2700 900 / 900 Other: Date of Last Bowel Movement 07/15/18 Narrative: GENERAL: NAD SKIN: Warm and dry. HEAD: Normocephalic. EYES: No scleral icterus. No injection or drainage. NECK: Supple, trachea midline. No JVD or lymphadenopathy. CARDIOVASCULAR: Regular rate and rhythm without murmurs, gallops, or rubs. RESPIRATORY: Breath sounds equal bilaterally. No accessory muscle use. GASTROINTESTINAL: Abdomen soft, non-tender, nondistended. MUSCULOSKELETAL: No cyanosis, or edema. BACK: Nontender without obvious deformity. No CVA tenderness. Results Procedures completed during hospitalization: 07/15/18 - Left femoral exploration, showed inflamed chronic appearing pseudoaneurysm, no infection, no intervention performed. Wound vac in place. Labs on day of discharge: Labs from last 24 hours 07/16/18 07/16/18 07/16/18 12:05 06:04 02:12 POC Glucose 234 H 250 H 325 H MTS Gel Crossmatch 07/16/18 07/15/18 07/15/18 02:11 17:54 06:47 POC Glucose 309 H 267 H MTS Gel Crossmatch See Detail Preliminary micro results at discharge 07/12/18 16:42 Aerobic Blood Culture - Preliminary Blood - Peripheral No growth in 4 days Anaerobic Blood Culture - Preliminary No growth in 4 days 07/12/18 16:42 Aerobic Blood Culture - Preliminary Blood - Peripheral No growth in 4 days Anaerobic Blood Culture - Preliminary No growth in 4 days - Impressions ITS Impressions Chest X-Ray 07/12/18 13:10 CONCLUSION: No acute cardiopulmonary abnormality is identified. Cardiac silhouette size is at the upper limits for normal. Abdomen X-Ray 07/15/18 00:00 CONCLUSION: 1. Benign bowel gas pattern with a moderate amount of stool throughout the entire colon. 2. Possible calcification overlying the left kidney measuring 1.3 cm versus stool. 3. Diffusely calcified aorta. Discharge Plan - Discharge Disposition Patient Disposition: 03 Discharge to SNF - Discharge Condition Condition: Stable - Discharge Order Discharge Orders: Discharge Order (Routine); Ordered 07/19/18 Ordered By: Niels Parker - Discharge Details Anticipated Discharge Date: 07/19/18 - Physicians Team Primary Care Provider: UNKNOWN, Attending Provider: Niels Parker Other Providers: Prashant Farrell MD ; [employer] ; [facility]
[2018-07-16] MEDS: Montelukast 10 MG Tablet PO SCH (17:18)
[2018-07-16] MEDS: Gabapentin 400 MG Capsule PO SCH (21:00)
[2018-07-16] MEDS: LORazepam 1 MG Tablet PO SCH (21:00)
[2018-07-17] MEDS: Insulin NovoLOG Aspart Correctional Sugar Inj SQ SCH ×4 (01:00→22:26)
[2018-07-17] MEDS: Benzonatate 100 MG Capsule PO PRN (05:47)
--- NOTE | 2018-07-17 06:37 | XR ---
EXAM DATE: 07/17/2018 6:24 AM EDT AGE/SEX: 82 years / Female INDICATIONS: . Shortness of breath. CLINICAL DATA: This is the patient's subsequent encounter. Patient reports that signs and symptoms h ave been present for 1 week and indicates a pain score of 0/10. MEDICAL/SURGICAL HISTORY: Myocardial infarction. Congestive heart failure. Hypercholesterolem ia. Diabetes. Coronary artery stent. COMPARISON: [facility] [place], CHEST 1V SINGLE AP, 07/12/2018. . FINDINGS: Stable, mild elevation of the right hemidiaphragm. Lungs are otherwise clear. Heart size is upper ratliff its of normal and well compensated. Loop recorder projects over the left heart border. Marked lateral spurring in the mid dorsal spine with a mild dextroscoliosis of the same. Osseous structures are oth erwise intact CONCLUSION: 1. Mild elevation of the right hemidiaphragm. 2. Lungs are otherwise clear. Heart size is upper limits of normal. Electronically signed by: Romeo Berger MD 07/17/2018 6:36 AM EDT
[2018-07-17] MEDS: Furosemide 20 MG Tablet PO SCH (08:42)
[2018-07-17] MEDS: Heparin - SQ 10,000 UNITS/ML Vial SQ SCH ×2 (08:42→22:25)
[2018-07-17] MEDS: predniSONE 20 MG Tablet PO SCH (08:43)
[2018-07-17] MEDS: Lisinopril 10 MG Tablet PO SCH (08:43)
[2018-07-17] MEDS: Polyethylene Glycol 3350 17 GM Packet PO SCH (08:44)
[2018-07-17] MEDS: Sucralfate 1 GM Tablet PO SCH ×4 (08:44→22:25)
[2018-07-17] MEDS: Senna/Docusate Sodium 8.6/50 MG Tablet PO SCH ×2 (08:44→22:26)
[2018-07-17] MEDS: Amitriptyline 25 MG Tablet PO SCH (08:44)
[2018-07-17] MEDS: ALPRAZolam 0.25 MG Tablet PO PRN (08:44)
[2018-07-17] MEDS: guaiFENesin 600 MG ER Tablet PO SCH ×2 (08:44→22:25)
[2018-07-17] MEDS: Ferrous Sulfate 325 MG Tablet PO SCH (08:44)
[2018-07-17] MEDS: Gabapentin 100 MG Capsule PO SCH ×2 (09:15→13:05)
--- NOTE | 2018-07-17 09:15 | P.PN ---
Subjective Interval history: Follow up Pseudoaneurysm s/p repair 07/16/18-patient seen and examined; some SOB and cough without any production. Afebrile 07/17/18-patient seen and examined now with worsening shortness of breath and wheezing along with nonproductive cough. Physical Exam Vital signs: Vital Signs 07/16/18 09:18 07/16/18 10:00 07/16/18 11:00 Temperature 98 F Pulse Rate 60 64 66 Respiratory Rate 18 Blood Pressure 152/66 H Pulse Oximetry 98 97 07/16/18 12:00 07/16/18 13:00 07/16/18 14:00 Temperature Pulse Rate 66 60 60 Respiratory Rate Blood Pressure Pulse Oximetry 07/16/18 15:00 07/16/18 15:51 07/16/18 16:00 Temperature 98 F Pulse Rate 62 62 60 Respiratory Rate 18 16 Blood Pressure 152/66 H Pulse Oximetry 98 07/16/18 17:00 07/16/18 18:00 07/16/18 19:00 Temperature Pulse Rate 68 74 61 Respiratory Rate Blood Pressure Pulse Oximetry 94 L 07/16/18 20:00 07/16/18 21:00 07/16/18 21:21 Temperature Pulse Rate 60 60 68 Respiratory Rate 17 Blood Pressure Pulse Oximetry 07/16/18 22:00 07/16/18 23:00 07/17/18 00:00 Temperature 98.7 F Pulse Rate 64 68 66 Respiratory Rate 14 Blood Pressure 152/62 H Pulse Oximetry 93 L 07/17/18 01:00 07/17/18 02:00 07/17/18 03:00 Temperature 98.2 F Pulse Rate 62 62 67 Respiratory Rate 16 Blood Pressure 162/67 H Pulse Oximetry 94 L 07/17/18 04:00 07/17/18 05:00 07/17/18 06:00 Temperature Pulse Rate 62 62 62 Respiratory Rate Blood Pressure Pulse Oximetry 07/17/18 07:00 Temperature Pulse Rate 60 Respiratory Rate Blood Pressure Pulse Oximetry Intake & Output 07/16/18 07/17/18 07/17/18 18:59 06:59 18:59 Intake Total 720 / 720 480 / 480 Output Total 800 / 800 630 / 630 Balance -80 / -80 -150 / -150 Weight 76.5 kg Intake: Oral 720 / 720 480 / 480 Output: Urine 630 / 630 Urine Amount (Catheter) 800 / 800 Indwelling Urethral Catheter 800 / 800 Other: Date of Last Bowel Movement 07/15/18 # Bowel Movements 0 0 Narrative: GENERAL: NAD. SKIN: Warm and dry. No rash. HEENT: Normocephalic. Atraumatic. Pupils equal and round. Mucous membranes pink and moist. CARDIOVASCULAR: Regular rate and rhythm. No murmur appreciated. RESPIRATORY: No accessory muscle use. Diffuse expiratory wheezing. Breath sounds decreased bilaterally. GASTROINTESTINAL: Abdomen soft, non-tender, nondistended. Normoactive bowel sounds x4. MUSCULOSKELETAL: No obvious deformities. Extremities without clubbing, cyanosis , or edema. Left anterior groin with wound vac in place, TTP, no surrounding erythema. NEUROLOGICAL: Awake and alert. No obvious cranial nerve deficits. Moving all extremities spontaneously. Normal speech. PSYCHIATRIC: Mildly anxious mood; insight and judgment normal. - Urinary Catheter Management Indwelling Urethral Catheter Cath placed during this visit: yes, but has since been removed by the nurse Reason for continuing: Not indwelling catheter Insertion date: 07/15/18 Insertion time: 08: Removal date: 07/16/18 Removal time: 17:30 Results - Labs CBC & Chem 7: 07/14/18 11:55 07/14/18 11:55 Laboratory Results - last 24 hr 07/16/18 07/16/18 07/17/18 12:05 18:23 03:16 POC Glucose 234 H 307 H 285 H 07/17/18 08:53 POC Glucose 268 H Microbiology 07/12/18 16:42 Blood - Peripheral Aerobic Blood Culture - Preliminary No growth in 4 days 07/12/18 16:42 Blood - Peripheral Anaerobic Blood Culture - Preliminary No growth in 4 days 07/12/18 16:42 Blood - Peripheral Aerobic Blood Culture - Preliminary No growth in 4 days 07/12/18 16:42 Blood - Peripheral Anaerobic Blood Culture - Preliminary No growth in 4 days - Imaging Impressions Chest X-Ray 07/17/18 00:00 CONCLUSION: 1. Mild elevation of the right hemidiaphragm. 2. Lungs are otherwise clear. Heart size is upper limits of normal. - Procedures 07/15/18 - Left femoral exploration, showed inflamed chronic appearing pseudoaneurysm, no infection, no intervention performed. Wound vac in place. Assessment and Plan - Plan 82-year-old female with Weakness, Hx of CVA -Worsened from baseline, suspect multifactorial with recent hospitalizations, UTI, GIB -Physical therapy consulted, recommends rehab PAD, Left Femoral Pseudoaneurysm S/p LLE bypass -Dr. Farrell ff -Patient's Christie is on hold for now -Continue heparin sq -07/15 S/p Left femoral exploration, showed inflamed chronic appearing pseudoaneurysm, no infection, no intervention performed. Urinary tract infection -S/p treatment with IV ceftriaxone GI bleed -Strongly suspect hemorrhoid related, patient straining with constipation, only with streaks of bright red blood, now resolved -Hemoglobin stable at 9.4 Diabetes mellitus type 2 -Follow blood sugars -Insulin sliding scale -continue patient's Lantus Accelerated Hypertension with Hypertensive Urgency -Continue lisinopril, bystolic -Give IV Vasotec prn SBP >180 or DBP >100 Constipation -Suspect opiate induced constipation -Continue eligio-colace 1tab po bid -Added Miralax daily Hyperlipidemia -Continue statin -Follow as an outpatient COPD Exacerbation -Discontinue prednisone 20mg qd and start Solu-Medrol 40 mg q. 8 hour, Spiriva, azithromycin 250 mg daily -Continue duonebs q6h -Continue Symbicort -O2 as needed -Incentive spirometry, Acapella GERD -Continue patient's Protonix and Carafate All other medical conditions stable, continue home medications as appropriate. Patient is not medically ready for discharge, therefore we will hold her discharge order.
[2018-07-17] MEDS: Insulin Detemir Inj 1,000 UNIT/10 ML Vial SQ SCH ×2 (09:17→22:26)
[2018-07-17] MEDS: Budesonide-Formoterol 80/4.5 MCG 6.9 GM Inhaler INH SCH ×2 (10:29→22:27)
[2018-07-17] MEDS: MethylPREDNISolone Sod Succinate Inj 40 MG/ML Vial IV.PUSH SCH ×2 (10:48→17:09)
[2018-07-17] MEDS: Azithromycin 250 MG Tablet PO SCH (10:48)
[2018-07-17] MEDS: Tiotropium Bromide 18 MCG/ACT Inhaler INH SCH (11:44)
[2018-07-17] MEDS: Montelukast 10 MG Tablet PO SCH (18:46)
[2018-07-17] MEDS: LORazepam 1 MG Tablet PO SCH (22:25)
[2018-07-17] MEDS: Gabapentin 400 MG Capsule PO SCH (22:25)
[2018-07-18] MEDS: MethylPREDNISolone Sod Succinate Inj 40 MG/ML Vial IV.PUSH SCH ×2 (01:50→09:20)
[2018-07-18] MEDS: Insulin NovoLOG Aspart Correctional Sugar Inj SQ SCH ×4 (01:50→18:42)
[2018-07-18] MEDS: Lisinopril 10 MG Tablet PO SCH (09:12)
[2018-07-18] MEDS: Furosemide 20 MG Tablet PO SCH (09:12)
[2018-07-18] MEDS: Sucralfate 1 GM Tablet PO SCH ×4 (09:14→22:08)
[2018-07-18] MEDS: Amitriptyline 25 MG Tablet PO SCH (09:15)
[2018-07-18] MEDS: Azithromycin 250 MG Tablet PO SCH (09:15)
[2018-07-18] MEDS: guaiFENesin 600 MG ER Tablet PO SCH ×2 (09:15→22:09)
[2018-07-18] MEDS: Gabapentin 100 MG Capsule PO SCH ×2 (09:16→12:41)
[2018-07-18] MEDS: Heparin - SQ 10,000 UNITS/ML Vial SQ SCH ×2 (09:16→22:09)
[2018-07-18] MEDS: Ferrous Sulfate 325 MG Tablet PO SCH (09:16)
[2018-07-18] MEDS: Polyethylene Glycol 3350 17 GM Packet PO SCH (09:17)
[2018-07-18] MEDS: Budesonide-Formoterol 80/4.5 MCG 6.9 GM Inhaler INH SCH ×2 (09:19→22:11)
[2018-07-18] MEDS: Tiotropium Bromide 18 MCG/ACT Inhaler INH SCH (09:19)
[2018-07-18] MEDS: Senna/Docusate Sodium 8.6/50 MG Tablet PO SCH ×2 (09:20→22:09)
[2018-07-18] MEDS: Insulin Detemir Inj 1,000 UNIT/10 ML Vial SQ SCH ×2 (09:55→22:29)
--- NOTE | 2018-07-18 11:15 | P.PN ---
Subjective Interval history: Follow up Pseudoaneurysm s/p repair 07/16/18-patient seen and examined; some SOB and cough without any production. Afebrile 07/17/18-patient seen and examined now with worsening shortness of breath and wheezing along with nonproductive cough. 07/18/18-patient seen and examined, patient reports some improvement of shortness of breath and denies any cough Physical Exam Vital signs: Vital Signs 07/17/18 12:00 07/17/18 13:00 07/17/18 13:54 Temperature Pulse Rate 64 63 Respiratory Rate 18 Blood Pressure Pulse Oximetry 07/17/18 14:00 07/17/18 15:00 07/17/18 16:00 Temperature 98.5 F Pulse Rate 61 64 69 Respiratory Rate 16 Blood Pressure 148/67 H Pulse Oximetry 98 07/17/18 17:00 07/17/18 18:00 07/17/18 19:00 Temperature 98.1 F Pulse Rate 63 63 63 Respiratory Rate 20 Blood Pressure 152/74 H Pulse Oximetry 93 L 07/17/18 20:00 07/17/18 21:00 07/17/18 22:00 Temperature Pulse Rate 64 66 68 Respiratory Rate Blood Pressure Pulse Oximetry 07/17/18 22:30 07/17/18 23:00 07/18/18 00:00 Temperature 98.6 F Pulse Rate 82 77 78 Respiratory Rate 20 20 Blood Pressure 149/79 H Pulse Oximetry 94 L 07/18/18 01:00 07/18/18 02:00 07/18/18 03:00 Temperature 98.2 F Pulse Rate 72 64 66 Respiratory Rate 18 Blood Pressure 143/80 H Pulse Oximetry 97 07/18/18 04:00 07/18/18 05:00 07/18/18 06:00 Temperature Pulse Rate 64 62 58 L Respiratory Rate Blood Pressure Pulse Oximetry 07/18/18 09:11 Temperature Pulse Rate Respiratory Rate Blood Pressure 158/85 H Pulse Oximetry Intake & Output 07/17/18 07/18/18 07/18/18 18:59 06:59 18:59 Intake Total 480 / 480 240 / 240 Output Total 1100 / 1100 300 / 300 Balance -620 / -620 -60 / -60 Weight 76.4 kg Intake: Oral 480 / 480 240 / 240 Output: Urine 1100 / 1100 300 / 300 Narrative: GENERAL: NAD. SKIN: Warm and dry. No rash. HEENT: Normocephalic. Atraumatic. Pupils equal and round. Mucous membranes pink and moist. CARDIOVASCULAR: Regular rate and rhythm. No murmur appreciated. RESPIRATORY: No accessory muscle use. Diffuse expiratory wheezing. Breath sounds decreased bilaterally. GASTROINTESTINAL: Abdomen soft, non-tender, nondistended. Normoactive bowel sounds x4. MUSCULOSKELETAL: No obvious deformities. Extremities without clubbing, cyanosis , or edema. Left anterior groin with wound vac in place, TTP, no surrounding erythema. NEUROLOGICAL: Awake and alert. No obvious cranial nerve deficits. Moving all extremities spontaneously. Normal speech. PSYCHIATRIC: Mildly anxious mood; insight and judgment normal. - Urinary Catheter Management Indwelling Urethral Catheter Cath placed during this visit: yes, but has since been removed by the nurse Reason for continuing: Not indwelling catheter Insertion date: 07/15/18 Insertion time: 08:25 Removal date: 07/16/18 Removal time: 17:30 Results - Labs CBC & Chem 7: 07/14/18 11:55 07/14/18 11:55 Laboratory Results - last 24 hr 07/15/18 07/17/18 07/17/18 06:47 11:21 13:59 POC Glucose 254 H 224 H MTS Gel Crossmatch See Detail 07/17/18 07/17/18 07/18/18 16:19 21:55 01:40 POC Glucose 119 H 297 H 328 H MTS Gel Crossmatch 07/18/18 09:29 POC Glucose 344 H MTS Gel Crossmatch Microbiology 07/12/18 16:42 Blood - Peripheral Aerobic Blood Culture - Final No growth in 5 days 07/12/18 16:42 Blood - Peripheral Anaerobic Blood Culture - Final No growth in 5 days 07/12/18 16:42 Blood - Peripheral Aerobic Blood Culture - Final No growth in 5 days 07/12/18 16:42 Blood - Peripheral Anaerobic Blood Culture - Final No growth in 5 days - Procedures 07/15/18 - Left femoral exploration, showed inflamed chronic appearing pseudoaneurysm, no infection, no intervention performed. Wound vac in place. Assessment and Plan - Plan 82-year-old female with Weakness, Hx of CVA -Worsened from baseline, suspect multifactorial with recent hospitalizations, UTI, GIB -Physical therapy consulted, recommends rehab which patient will go to tomorrow July 19, 2018 PAD, Left Femoral Pseudoaneurysm S/p LLE bypass -Dr. Farrell ff -Patient's Christie is on hold for now -Continue heparin sq -07/15 S/p Left femoral exploration, showed inflamed chronic appearing pseudoaneurysm, no infection, no intervention performed. Urinary tract infection -S/p treatment with IV ceftriaxone GI bleed -Strongly suspect hemorrhoid related, patient straining with constipation, only with streaks of bright red blood, now resolved -Hemoglobin stable at 9.4 Diabetes mellitus type 2 -Follow blood sugars -Insulin sliding scale -continue patient's Lantus Accelerated Hypertension with Hypertensive Urgency-resolved -Continue lisinopril, bystolic -Give IV Vasotec prn SBP >180 or DBP >100 Constipation -Suspect opiate induced constipation -Continue eligio-colace 1tab po bid -Added Miralax daily Hyperlipidemia -Continue statin -Follow as an outpatient COPD Exacerbation -Continue with Solu-Medrol 40 mg q. however switched to every 12 hours. Continue with Spiriva, azithromycin 250 mg daily -Continue duonebs q6h -Continue Symbicort -O2 as needed -Incentive spirometry, Acapella GERD -Continue patient's Protonix and Carafate All other medical conditions stable, continue home medications as appropriate. Discharge likely tomorrow July 19, 2018.
[2018-07-18] MEDS: ALPRAZolam 0.25 MG Tablet PO PRN ×2 (12:41→18:50)
[2018-07-18] MEDS: Montelukast 10 MG Tablet PO SCH (20:05)
[2018-07-18] MEDS ORDERED: MethylPREDNISolone Sod Succinate Inj 40 MG/ML Vial IV.PUSH SCH (21:00)
[2018-07-18] MEDS: LORazepam 1 MG Tablet PO SCH (22:08)
[2018-07-18] MEDS: Benzonatate 100 MG Capsule PO PRN (22:08)
[2018-07-18] MEDS: Gabapentin 400 MG Capsule PO SCH (22:10)
[2018-07-19] MEDS: Insulin NovoLOG Aspart Correctional Sugar Inj SQ SCH ×2 (01:44→06:40)
[2018-07-19] MEDS: ALPRAZolam 0.25 MG Tablet PO PRN (06:40)
[2018-07-19 06:43] LABS: Baso % (Auto) 0.1 % (0.0-2.0); Hematocrit 29.6 % (35.0-46.0); Hemoglobin 10.2 gm/dL (11.6-15.3); Lymph # (Auto) 0.9 th/mm3 (1.0-4.8); Lymph % (Auto) 7.3 % (9.0-44.0); Mean Corpuscular HGB Conc 34.3 % (32.0-36.0); Mean Corpuscular Hemoglobin 32.3 pg (27.0-34.0); Mean Corpuscular Volume 94.1 fL (80.0-100.0); Mean Platelet Volume 8.8 fL (7.0-11.0); Mono # (Auto) 0.6 th/mm3 (0.0-0.9); Mono % (Auto) 4.9 % (0.0-8.0); Neut # (Auto) 10.4 th/mm3 (1.8-7.7); Neut % (Auto) 87.7 % (16.0-70.0); Platelet Count 310 th/mm3 (150-450); Red Blood Count 3.15 mil/mm3 (4.00-5.30); Red Cell Distribution Width 14.7 % (11.6-17.2); White Blood Count 11.8 th/mm3 (4.0-11.0)
[2018-07-19 07:15] LABS: Albumin 2.8 g/dL (3.4-5.0); Anion Gap 7 meq/L (5-15); Aspartate Aminotransferase 17 U/L (15-37); Blood Urea Nitrogen 32 mg/dL (7-18); Calcium 8.9 mg/dL (8.5-10.1); Carbon Dioxide 32.3 meq/L (21.0-32.0); Chloride 96 meq/L (98-107); Glomerular Filtration Rate 48 mL/min (>89); Glucose,Random 212 mg/dL (74-106); Potassium 4.6 meq/L (3.5-5.1); Sodium 135 meq/L (136-145)
[2018-07-19 07:19] LABS: Alanine Aminotransferase 39 U/L (10-53); Alkaline Phosphatase 97 U/L (45-117); Total Protein 6.9 g/dL (6.4-8.2)
[2018-07-19] MEDS: Lisinopril 10 MG Tablet PO SCH (09:29)
[2018-07-19] MEDS: guaiFENesin 600 MG ER Tablet PO SCH (09:29)
[2018-07-19] MEDS: Senna/Docusate Sodium 8.6/50 MG Tablet PO SCH (09:30)
[2018-07-19] MEDS: Azithromycin 250 MG Tablet PO SCH (09:30)
[2018-07-19] MEDS: Amitriptyline 25 MG Tablet PO SCH (09:30)
[2018-07-19] MEDS: Ferrous Sulfate 325 MG Tablet PO SCH (09:30)
[2018-07-19] MEDS: Furosemide 20 MG Tablet PO SCH (09:30)
[2018-07-19] MEDS: Sucralfate 1 GM Tablet PO SCH (09:30)
[2018-07-19] MEDS: Heparin - SQ 10,000 UNITS/ML Vial SQ SCH (09:31)
[2018-07-19] MEDS: Tiotropium Bromide 18 MCG/ACT Inhaler INH SCH (09:31)
[2018-07-19] MEDS: Budesonide-Formoterol 80/4.5 MCG 6.9 GM Inhaler INH SCH (09:31)
[2018-07-19] MEDS: Polyethylene Glycol 3350 17 GM Packet PO SCH (09:31)
[2018-07-19] MEDS: Insulin Detemir Inj 1,000 UNIT/10 ML Vial SQ SCH (09:32)
[2018-07-19] MEDS: Gabapentin 100 MG Capsule PO SCH (09:33)
--- NOTE | 2018-07-19 09:57 | P.PN ---
Subjective Interval history: Follow up Pseudoaneurysm s/p repair 07/16/18-patient seen and examined; some SOB and cough without any production. Afebrile 07/17/18-patient seen and examined now with worsening shortness of breath and wheezing along with nonproductive cough. 07/18/18-patient seen and examined, patient reports some improvement of shortness of breath and denies any cough 07/19/18-patient seen and examined, she was up and ambulated this a.m. with PT. Patient had issue with elevated BP overnight. She is looking for discharge today. Physical Exam Vital signs: Vital Signs 07/18/18 10:00 07/18/18 11:00 07/18/18 12:00 Temperature 97.8 F Pulse Rate 70 68 66 Respiratory Rate 20 Blood Pressure 163/90 H Pulse Oximetry 96 07/18/18 13:00 07/18/18 15:00 07/18/18 16:00 Temperature 97.7 F Pulse Rate 62 78 85 Respiratory Rate 18 Blood Pressure 184/99 H Pulse Oximetry 100 07/18/18 17:00 07/18/18 18:52 07/18/18 19:00 Temperature Pulse Rate 64 64 Respiratory Rate Blood Pressure 188/104 H Pulse Oximetry 07/18/18 19:46 07/18/18 20:00 07/18/18 21:00 Temperature 97.4 F L Pulse Rate 74 66 66 Respiratory Rate 18 Blood Pressure 154/80 H Pulse Oximetry 96 07/18/18 21:58 07/18/18 22:00 07/18/18 22:52 Temperature Pulse Rate 65 68 Respiratory Rate 18 Blood Pressure Pulse Oximetry 07/18/18 23:00 07/19/18 00:00 07/19/18 01:00 Temperature Pulse Rate 64 64 64 Respiratory Rate Blood Pressure Pulse Oximetry 07/19/18 01:20 07/19/18 02:00 07/19/18 03:00 Temperature 97.7 F Pulse Rate 63 64 60 Respiratory Rate 18 16 Blood Pressure 171/91 H 203/110 H Pulse Oximetry 93 L 94 L 07/19/18 04:00 07/19/18 04:20 07/19/18 05:00 Temperature 97.6 F Pulse Rate 100 H 66 94 H Respiratory Rate 16 Blood Pressure 182/98 H Pulse Oximetry 96 07/19/18 06:00 07/19/18 06:35 07/19/18 07:00 Temperature 97.6 F Pulse Rate 100 H 64 Respiratory Rate 18 Blood Pressure 176/104 H 165/76 H Pulse Oximetry 98 07/19/18 08:00 07/19/18 09:49 07/19/18 09:53 Temperature Pulse Rate 64 64 64 Respiratory Rate Blood Pressure Pulse Oximetry Intake & Output 07/18/18 07/19/18 07/19/18 18:59 06:59 18:59 Intake Total 480 / 480 Output Total 800 / 800 Balance -320 / -320 Weight 76.3 kg Intake: Oral 480 / 480 Output: Urine 800 / 800 Other: Date of Last Bowel Movement 07/15/18 07/15/18 07/15/18 Narrative: GENERAL: NAD. SKIN: Warm and dry. No rash. HEENT: Normocephalic. Atraumatic. Pupils equal and round. Mucous membranes pink and moist. CARDIOVASCULAR: Regular rate and rhythm. No murmur appreciated. RESPIRATORY: No accessory muscle use. Diffuse expiratory wheezing. Breath sounds decreased bilaterally. GASTROINTESTINAL: Abdomen soft, non-tender, nondistended. Normoactive bowel sounds x4. MUSCULOSKELETAL: No obvious deformities. Extremities without clubbing, cyanosis , or edema. Left anterior groin with wound vac in place, TTP, no surrounding erythema. NEUROLOGICAL: Awake and alert. No obvious cranial nerve deficits. Moving all extremities spontaneously. Normal speech. PSYCHIATRIC: Mildly anxious mood; insight and judgment normal. - Urinary Catheter Management Indwelling Urethral Catheter Cath placed during this visit: yes, but has since been removed by the nurse Reason for continuing: Not indwelling catheter Insertion date: 07/15/18 Insertion time: 08:25 Removal date: 07/16/18 Removal time: 17:30 Results - Labs CBC & Chem 7: 07/19/18 06:03 07/19/18 06:03 Laboratory Results - last 24 hr 07/18/18 07/18/18 07/18/18 12:44 17:45 22:24 WBC RBC Hgb Hct MCV MCH MCHC RDW Plt Count MPV Neut % (Auto) Lymph % (Auto) [place] % (Auto) Eos % (Auto) Baso % (Auto) Neut # (Auto) Lymph # (Auto) [place] # (Auto) Eos # (Auto) Baso # (Auto) WBC Differential Differential Comment Sodium Potassium Chloride Carbon Dioxide Anion Gap BUN Creatinine Estimated GFR POC Glucose 336 H 418 H 345 H Random Glucose Calcium Total Bilirubin AST ALT Alkaline Phosphatase Total Protein Albumin 07/19/18 07/19/18 07/19/18 01:38 06:03 06:03 WBC 11.8 H RBC 3.15 L Hgb 10.2 L Hct 29.6 L MCV 94.1 MCH 32.3 MCHC 34.3 RDW 14.7 Plt Count 310 D MPV 8.8 Neut % (Auto) 87.7 H Lymph % (Auto) 7.3 L [place] % (Auto) 4.9 Eos % (Auto) 0.0 Baso % (Auto) 0.1 Neut # (Auto) 10.4 H Lymph # (Auto) 0.9 L [place] # (Auto) 0.6 Eos # (Auto) 0.0 Baso # (Auto) 0.0 WBC Differential . Differential Comment Auto diff final Sodium 135 L Potassium 4.6 Chloride 96 L Carbon Dioxide 32.3 H Anion Gap 7 BUN 32 H Creatinine 1.09 H Estimated GFR 48 L POC Glucose 323 H Random Glucose 212 H Calcium 8.9 Total Bilirubin 0.4 AST 17 ALT 39 Alkaline Phosphatase 97 Total Protein 6.9 D Albumin 2.8 L 07/19/18 07/19/18 06:26 09:00 WBC RBC Hgb Hct MCV MCH MCHC RDW Plt Count MPV Neut % (Auto) Lymph % (Auto) [place] % (Auto) Eos % (Auto) Baso % (Auto) Neut # (Auto) Lymph # (Auto) [place] # (Auto) Eos # (Auto) Baso # (Auto) WBC Differential Differential Comment Sodium Potassium Chloride Carbon Dioxide Anion Gap BUN Creatinine Estimated GFR POC Glucose 230 H 275 H Random Glucose Calcium Total Bilirubin AST ALT Alkaline Phosphatase Total Protein Albumin - Procedures 07/15/18 - Left femoral exploration, showed inflamed chronic appearing pseudoaneurysm, no infection, no intervention performed. Wound vac in place. Assessment and Plan - Plan 82-year-old female with Weakness, Hx of CVA Improving as patient not able to ambulate Will discharge to rehab today PAD, Left Femoral Pseudoaneurysm S/p LLE bypass -Dr. Farrell ff -Patient's Eliquis is on hold for now -Continue heparin sq -07/15 S/p Left femoral exploration, showed inflamed chronic appearing pseudoaneurysm, no infection, no intervention performed. Urinary tract infection -S/p treatment with IV ceftriaxone GI bleed -Strongly suspect hemorrhoid related, patient straining with constipation, only with streaks of bright red blood, now resolved -Hemoglobin stable at 9.4 Diabetes mellitus type 2 -Follow blood sugars -Insulin sliding scale -continue patient's Lantus Accelerated Hypertension with Hypertensive Urgency-resolved -Continue lisinopril, bystolic, add hydralazine as needed -Give IV Vasotec prn SBP >180 or DBP >100 Constipation -Suspect opiate induced constipation -Continue eligio-colace 1tab po bid -Added Miralax daily Hyperlipidemia -Continue statin -Follow as an outpatient COPD Exacerbation-resolved -d/c Solu-Medrol and start p.o. prednisone 10 mg daily and continue with Spiriva , azithromycin 250 mg daily -Continue duonebs q6h -Continue Symbicort -O2 as needed -Incentive spirometry, Acapella GERD -Continue patient's Protonix and Carafate All other medical conditions stable, continue home medications as appropriate.
[2018-07-19] MEDS ORDERED: predniSONE 10 MG Tablet PO SCH (10:00)
[2018-07-19] MEDS ORDERED: hydrALAZINE 25 MG Tablet PO SCH (10:00)
== END 2018-07-19 11:35 ==
LOC: NEDA 12:46 → NEPE 12:46 → NEPHCDU 18:00 → HCPC 07-15 07:55 → HCIS 07-17 18:22
PROVIDERS: ADMIT Hospitalist; ATTEND Hospitalist

== ENCOUNTER 2018-07-19 20:24 | Inpatient (IN) ==
[2018-07-19] MEDS ORDERED: Vancomycin Inj 1 GM/200 ML PIGGYBACK IV.SIG SCH (21:00)
[2018-07-19 21:13] LABS: Baso % (Auto) 0.1 % (0.0-2.0); Eos % (Auto) 0.1 % (0.0-4.0); Hematocrit 33.1 % (35.0-46.0); Lymph # (Auto) 0.5 th/mm3 (1.0-4.8); Lymph % (Auto) 3.4 % (9.0-44.0); Mean Corpuscular HGB Conc 33.1 % (32.0-36.0); Mean Corpuscular Hemoglobin 31.8 pg (27.0-34.0); Mean Corpuscular Volume 95.9 fL (80.0-100.0); Mean Platelet Volume 8.7 fL (7.0-11.0); Mono # (Auto) 0.8 th/mm3 (0.0-0.9); Mono % (Auto) 5.6 % (0.0-8.0); Neut # (Auto) 12.8 th/mm3 (1.8-7.7); Neut % (Auto) 90.8 % (16.0-70.0); Platelet Count 316 th/mm3 (150-450); Red Blood Count 3.45 mil/mm3 (4.00-5.30); Red Cell Distribution Width 14.6 % (11.6-17.2); White Blood Count 14.1 th/mm3 (4.0-11.0)
--- NOTE | 2018-07-19 21:14 | ED ---
HPI General Chief complaint: Fever Stated complaint: Hypertension/NSBFR Time Seen by Provider: 07/19/18 20:28 History of Present Illness HPI narrative: 82-year-old female with a history of COPD, CKD, CVA, diabetes presents to the emergency department from rehab facility for evaluation of fever , cough and UTI. The patient was discharged from our facility today to rehab. The patient states that she has had a productive cough for past 4 days that has worsened. States that today she started running a fever. States that she has also had wheezing. She is also complaining of aching pain in her left leg at the groin insertion site which she had a vascular surgery done while in the hospital several days ago. She also complains of urinary frequency and burning with urination, states that she had a UTI recently. She denies chest pain, lightheadedness, dizziness, nausea, vomiting, diarrhea. No other complaints. Related Data Home Medications Medication Instructions Recorded Confirmed apixaban [Eliquis] 5 mg PO BID 06/10/18 07/14/18 atorvastatin 20 mg PO DAILY 06/10/18 07/14/18 furosemide [Lasix] 20 mg PO DAILY 06/10/18 07/14/18 gabapentin 300 mg PO BID 06/10/18 07/14/18 ondansetron HCl [Zofran] 4 mg PO TID-QID PRN 06/10/18 07/14/18 pantoprazole 40 mg PO DAILY 06/10/18 07/14/18 potassium chloride 20 meq PO DAILY 06/10/18 07/14/18 pramipexole 0.5 mg PO QPM 06/10/18 07/14/18 sucralfate [Carafate] 1 g PO DAILY 06/10/18 07/14/18 tizanidine 2 mg PO TID PRN 06/10/18 07/14/18 ferrous sulfate [FeroSul] 325 mg PO DAILY 07/13/18 07/14/18 insulin glargine [Lantus U-100 12 unit SUB-Q QAM 07/13/18 07/14/18 Insulin] insulin glargine [Lantus U-100 13 unit SUB-Q HS 07/13/18 07/14/18 Insulin] multivitamin 1 tab PO DAILY 07/13/18 07/14/18 nebivolol [Bystolic] 10 mg PO BID 07/13/18 07/14/18 Previous Rx's Medication Instructions Recorded benzonatate [Tessalon Perles] 200 mg PO Q8H PRN #10 cap 07/16/18 budesonide-formoterol [Symbicort] 2 puff INH BID #1 g 07/16/18 lisinopril 10 mg PO DAILY #30 tab 07/16/18 lorazepam 1 mg PO DAILY #10 mg 07/16/18 oxycodone 30 mg PO Q4-6H PRN #10 mg 07/16/18 azithromycin 250 mg PO DAILY #2 tab 07/19/18 hydralazine 25 mg PO TID #90 tab 07/19/18 prednisone 10 mg PO DAILY #3 tab 07/19/18 tiotropium bromide [Spiriva with 18 mcg INH DAILY #1 inh 07/19/18 HandiHaler] Allergies Allergy/AdvReac Type Severity Reaction Status Date / Time morphine Allergy Severe HIVES Verified 07/14/18 11:55 penicillin G Allergy Severe HIVES Verified 07/14/18 11:55 Review of Systems ROS: all other systems reviewed are negative [facility] Social History Social History Substance History: No History of Abuse Second Hand Smoke Exposure: No Smoking Status: Never smoker How Often Do You Have a Drink Containing Alcohol: Never Recent Travel in [facility] within the Last 8 Weeks: No Recent Out of Country Travel within the Last 8 Weeks: No Immunization History Tetanus Immunization: Unsure Hx Influenza Vaccine This Season: Yes Exam Narrative Exam Narrative: GENERAL: Well-nourished and well-developed elderly female patient in no acute distress but with audible wheezing. SKIN: Warm and dry. HEAD: Normocephalic and atraumatic. EYES: No injection, drainage, or hyphema noted. PERRLA. EOMI. ENT: No nasal drainage noted. Oropharynx is clear and the TMs are normal with good landmarks. NECK: Supple and the trachea is midline. No lymphadenopathy is noted throughout the cervical chains. CARDIOVASCULAR: Regular rate and rhythm. RESPIRATORY: Bilateral wheezing throughout with crackles to right lung base. No accessory muscle use. GASTROINTESTINAL: Abdomen is soft, non-tender, and nondistended. MUSCULOSKELETAL: Wound vac in place to left groin. No obvious deformities, swelling, cyanosis, or ecchymosis is present throughout the upper and lower extremities. Patient has full range of motion without any signs of neurovascular compromise. Distal pulses are 2+ throughout. NEUROLOGICAL: Awake, alert, and oriented. Normal speech and gait. Cranial nerves are grossly intact. Course Initial Documented Vital Signs Temperature 99.9 F H 07/19/18 20:30 Respiratory Rate 20 07/19/18 20:30 Blood Pressure 182/75 H 07/19/18 20:30 Pulse Oximetry 92 L 07/19/18 20:30 Last Documented Vital Signs Temperature 99.9 F H 07/19/18 20:30 Pulse Rate 85 07/19/18 22:05 Respiratory Rate 18 07/19/18 22:05 Blood Pressure 182/75 H 07/19/18 20:38 Pulse Oximetry 95 07/19/18 20:54 Medical Decision Making MDM Narrative Medical decision making narrative: 82-year-old female is brought to the emergency department by [facility] for evaluation of fever, productive cough and wheezing. Patient does have a fever of 99.9F. Oxygen saturation 92% on room air. Blood pressure is elevated at 182/75, otherwise vitals are stable. Patient has wheezing throughout. IV access is obtained, labs have been drawn and sent. Patient is placed on cardiac telemetry and pulse oximetry monitoring. EKG shows paced rhythm, no acute abnormalities. Patient administered duo nebs 3, Solu-Medrol 125 mg IV, cefepime 2 g IV and vancomycin 1 g IV. Chest x-ray shows right lower lobe pneumonia. CBC shows elevated white blood cell count of 14.1, otherwise unremarkable. Coags are unremarkable. CMP shows slightly elevated creatinine 1.34, GFR 38, otherwise unremarkable. Blood cultures ordered and pending. Patient has remained stable here in the ED. She'll be admitted to medicine for sepsis and hospital acquired pneumonia. Lactic acid is 1.5. Troponin is 0.04, unchanged from prior. Patient to be admitted for sepsis and HAP. I spoke with Dr. Horton [facility] who agrees to admit the patient to his service. Medical Screen Exam Complete: Yes Emergency Medical Condition: Yes Differential Diagnosis Differential Diagnosis: Pneumonia versus COPD exacerbation versus UTI versus sepsis Lab Data Result diagrams: 07/19/18 20:46 07/19/18 20:46 Lab Results 0807/19/18 07/19/18 Range/Units 20:46 20:46 20:46 WBC 14.1 H (4.0-11.0) th/mm3 RBC 3.45 L (4.00-5.30) mil/mm3 Hgb 11.0 L (11.6-15.3) gm/dL Hct 33.1 L (35.0-46.0) % MCV 95.9 (80.0-100.0) fL MCH 31.8 (27.0-34.0) pg MCHC 33.1 (32.0-36.0) % RDW 14.6 (11.6-17.2) % Plt Count 316 (150-450) th/mm3 MPV 8.7 (7.0-11.0) fL Neut % (Auto) 90.8 H (16.0-70.0) % Lymph % (Auto) 3.4 L (9.0-44.0) % [place] % (Auto) 5.6 (0.0-8.0) % Eos % (Auto) 0.1 (0.0-4.0) % Baso % (Auto) 0.1 (0.0-2.0) % Neut # (Auto) 12.8 H (1.8-7.7) th/mm3 Lymph # (Auto) 0.5 L (1.0-4.8) th/mm3 [place] # (Auto) 0.8 (0.0-0.9) th/mm3 Eos # (Auto) 0.0 (0.0-0.4) th/mm3 Baso # (Auto) 0.0 (0.0-0.2) th/mm3 WBC Differential . Differential Comment Auto diff final PT 11.4 (9.8-11.6) sec INR 1.1 Ratio APTT 22.4 L (24.3-30.1) sec Sodium 135 L (136-145) meq/L Potassium 4.4 (3.5-5.1) meq/L Chloride 94 L (98-107) meq/L Carbon Dioxide 30.2 (21.0-32.0) meq/L Anion Gap 11 (5-15) meq/L BUN 33 H (7-18) mg/dL Creatinine 1.34 H (0.50-1.00) mg/dL Estimated GFR 38 L (>89) mL/min Random Glucose 249 H (74-106) mg/dL Lactic Acid (0.4-2.0) mmol/L Calcium 8.5 (8.5-10.1) mg/dL Total Bilirubin 0.5 (0.2-1.0) mg/dL AST 26 (15-37) U/L ALT 41 (10-53) U/L Alkaline Phosphatase 105 (45-117) U/L Total Creatine Kinase 65 (26-192) U/L Troponin I 0.04 (0.02-0.05) ng/mL Total Protein 7.0 (6.4-8.2) g/dL Albumin 2.8 L (3.4-5.0) g/dL 07/19/18 Range/Units 20:55 WBC (4.0-11.0) th/mm3 RBC (4.00-5.30) mil/mm3 Hgb (11.6-15.3) gm/dL Hct (35.0-46.0) % MCV (80.0-100.0) fL MCH (27.0-34.0) pg MCHC (32.0-36.0) % RDW (11.6-17.2) % Plt Count (150-450) th/mm3 MPV (7.0-11.0) fL Neut % (Auto) (16.0-70.0) % Lymph % (Auto) (9.0-44.0) % [place] % (Auto) (0.0-8.0) % Eos % (Auto) (0.0-4.0) % Baso % (Auto) (0.0-2.0) % Neut # (Auto) (1.8-7.7) th/mm3 Lymph # (Auto) (1.0-4.8) th/mm3 [place] # (Auto) (0.0-0.9) th/mm3 Eos # (Auto) (0.0-0.4) th/mm3 Baso # (Auto) (0.0-0.2) th/mm3 WBC Differential Differential Comment PT (9.8-11.6) sec INR Ratio APTT (24.3-30.1) sec Sodium (136-145) meq/L Potassium (3.5-5.1) meq/L Chloride (98-107) meq/L Carbon Dioxide (21.0-32.0) meq/L Anion Gap (5-15) meq/L BUN (7-18) mg/dL Creatinine (0.50-1.00) mg/dL Estimated GFR (>89) mL/min Random Glucose (74-106) mg/dL Lactic Acid 1.5 (0.4-2.0) mmol/L Calcium (8.5-10.1) mg/dL Total Bilirubin (0.2-1.0) mg/dL AST (15-37) U/L ALT (10-53) U/L Alkaline Phosphatase (45-117) U/L Total Creatine Kinase (26-192) U/L Troponin I (0.02-0.05) ng/mL Total Protein (6.4-8.2) g/dL Albumin (3.4-5.0) g/dL Imaging Data Radiologist's impression: Chest X-Ray 07/19/18 20:38 CONCLUSION: Right lower lung consolidation or atelectasis. Given the history, this likely represents an area of pneumonia. Discharge Plan Discharge Disposition Patient Disposition: 30 Still Patient Discharge Condition Condition: Stable Discharge Details Diagnosis: Sepsis, HAP (hospital-acquired pneumonia) Physicians Team ED Provider: [facility] Midlevel Provider: Lurdes Lopez Primary Care Provider: Crystal Allen Rxs /Orders / Referrals /Forms Prescriptions: No Action atorvastatin 20 mg Tablet 20 mg PO DAILY RF: 0 gabapentin 300 mg Capsule 300 mg PO BID RF: 0 furosemide [Lasix] 20 mg Tablet 20 mg PO DAILY RF: 0 apixaban [Eliquis] 5 mg Tablet 5 mg PO BID RF: 0 ondansetron HCl [Zofran] 4 mg Tablet 4 mg PO TID-QID PRN (Reason: Nausea) RF: 0 pramipexole 0.5 mg Tablet 0.5 mg PO QPM RF: 0 pantoprazole [address] For Susp In Packet 40 mg PO DAILY RF: 0 potassium chloride 20 mEq Tablet Extended Release 20 meq PO DAILY RF: 0 tizanidine 2 mg Tablet 2 mg PO TID PRN (Reason: Muscle Spasm) RF: 0 sucralfate [Carafate] 1 gram Tablet 1 g PO DAILY RF: 0 multivitamin Tablet 1 tab PO DAILY RF: 0 ferrous sulfate [FeroSul] 325 mg (65 mg iron) Tablet 325 mg PO DAILY RF: 0 insulin glargine [Lantus U-100 Insulin] 100 unit/mL Solution 12 unit SUB-Q QAM RF: 0 insulin glargine [Lantus U-100 Insulin] 100 unit/mL Solution 13 unit SUB-Q HS RF: 0 nebivolol [Bystolic] 10 mg Tablet 10 mg PO BID RF: 0 benzonatate [Tessalon Perles] 100 mg Capsule 200 mg PO Q8H PRN (Reason: Cough) Qty: 10 RF: 0 lisinopril 10 mg Tablet 10 mg PO DAILY Qty: 30 RF: 0 budesonide-formoterol [Symbicort] 80-4.5 mcg/actuation Hfa Aerosol Inhaler 2 puff INH BID Qty: 1 RF: 3 lorazepam 2 mg Tablet 1 mg PO DAILY Qty: 10 RF: 0 oxycodone 30 mg Tablet 30 mg PO Q4-6H PRN (Reason: Pain) Qty: 10 RF: 0 prednisone 10 mg Tablet 10 mg PO DAILY Qty: 3 RF: 0 azithromycin 250 mg Tablet 250 mg PO DAILY Qty: 2 RF: 0 hydralazine 25 mg Tablet 25 mg PO TID Qty: 90 RF: 0 tiotropium bromide [Spiriva with HandiHaler] 18 mcg Capsule, W/Inhalation Device 18 mcg INH DAILY Qty: 1 RF: 0 Status ED Status: With Doctor
[2018-07-19 21:22] LABS: Activated Partial Thrombo Time 22.4 sec (24.3-30.1); Albumin 2.8 g/dL (3.4-5.0); Anion Gap 11 meq/L (5-15); Aspartate Aminotransferase 26 U/L (15-37); Blood Urea Nitrogen 33 mg/dL (7-18); Calcium 8.5 mg/dL (8.5-10.1); Carbon Dioxide 30.2 meq/L (21.0-32.0); Chloride 94 meq/L (98-107); Glomerular Filtration Rate 38 mL/min (>89); Glucose,Random 249 mg/dL (74-106); INR 1.1 Ratio; Potassium 4.4 meq/L (3.5-5.1); Prothrombin Time 11.4 sec (9.8-11.6); Sodium 135 meq/L (136-145)
[2018-07-19 21:23] LABS: Alanine Aminotransferase 41 U/L (10-53)
[2018-07-19 21:27] LABS: Alkaline Phosphatase 105 U/L (45-117); Troponin I 0.04 ng/mL (0.02-0.05)
--- NOTE | 2018-07-19 21:30 | XR ---
EXAM DATE: 07/19/2018 8:58 PM EDT AGE/SEX: 82 years / Female INDICATIONS: Fever. CLINICAL DATA: This is the patient's sequela encounter. Patient reports that signs and symptoms have been present for 1 week and indicates a pain score of 5/10. MEDICAL/SURGICAL HISTORY: . Patient was just discharged this morning for arterial bypass. Fever as high as 103 today. Cough. . Arterial bypass COMPARISON: C, CHEST 2V AP&LAT, 07/17/2018. . FINDINGS: The heart size is enlarged. There is a loop recorder seen in the left chest. There is increased densi ty at the right base. The left lung is clear. CONCLUSION: Right lower lung consolidation or atelectasis. Given the history, this likely represents an area of p neumonia. Electronically signed by: Jude Roger MD 07/19/2018 9:28 PM EDT
[2018-07-19 21:32] LABS: Creatine Kinase 65 U/L (26-192)
[2018-07-19] MEDS ORDERED: MethylPREDNISolone Sod Succinate Inj 125 MG/2 ML Vial IV.PUSH ONE (21:37)
[2018-07-19] MEDS ORDERED: Sodium Chlor 0.9% Inj 500 ML IV.SIG SCH (22:00)
[2018-07-19] MEDS ORDERED: Vancomycin Inj 1,000 MG in Sodium Chlor 0.9% Inj 250 ML IV.SIG SCH (22:00)
[2018-07-19] MEDS ORDERED: Vancomycin Consult Pharmacy OTHER PRN (22:13)
[2018-07-19] MEDS ORDERED: Bisacodyl 10 MG Supp RECTAL PRN (22:16)
[2018-07-20] MEDS: Sod Chloride 0.9% Inj 1,000 ML IV.CONT SCH ×2 (00:46→20:34)
[2018-07-20 01:58] LABS: Bilirubin,Urine Negative (Negative); Clarity,Urine Clear (Clear); Color,Urine Yellow (Yellw/Straw); Glucose,Urine (UA) 50 mg/dL (Negative); Leukocyte Esterase,Urine Trace (Negative); Nitrite,Urine Negative (Negative); Specific Gravity,Urine 1.013 (1.002-1.035); Squamous Epithelial Cell,Urine 1 /hpf (0-5); Transitional Epi Cells,Urine 2 /hpf
[2018-07-20] MEDS ORDERED: Dextrose 50% in Water 50 ML Vial IV.PUSH PRN (02:21)
--- NOTE | 2018-07-20 02:26 | P.HPIM ---
History of Present Illness Primary Care Physician: Crystal Allen History of Present Illness: 82-year-old female with a history of CKD, recurrent UTIs, CVA, peripheral artery disease, diabetes, recently discharged from the hospital yesterday having been treated for pseudoaneurysm of left tremor any bypass site, as well as generalized weakness. She presents having experienced a fever at her detention facility. She reports a productive cough which has progressively worsened over the past 4 days. She reports dysuria which is been going on for approximately a week. Denies any nausea, vomiting, chest pain, shortness of breath. No constipation. Inpatient Certification: I certify that the inpatient services were ordered in accordance with Medicare regulations governing the order. This includes certification that hospital inpatient services are reasonable and necessary and in the case of services not specified as inpatient-only under 42 CFR 419.22(n), that they are appropriately provided as inpatient services in accordance to with the 2-midnight benchmark under 43 CFR 412.3(e) Estimated Total Length of Stay (Days): 3 Plans for Post Hospital Care: SNF Review of Systems All other systems reviewed negative except as stated in HPI PMFSH - History History Provided By: Patient, Medical Record - Medical History Medical History: Medical History (Last Updated 07/19/18 @ 23:20 by Agnes Muhammad) Femoral artery stenosis (Acute) Aneurysm (Acute) CVA (cerebral vascular accident) (Acute) GERD (gastroesophageal reflux disease) (Acute) Diabetes (Acute) Hypertension (Acute) Pneumonia (Acute) History of GI bleed Pseudoaneurysm of left femoral artery UTI (urinary tract infection) CAD (coronary artery disease) Heart attack History of anesthesia reaction History of esophageal stricture Neuropathy PAD (peripheral artery disease) - Surgical History Surgical History: Surgical History (Last Updated 07/19/18 @ 23:18 by Agnes Muhammad) History of tubal ligation (Acute) H/O endarterectomy (Acute) History of cholecystectomy (Acute) History of procedure for peripheral vascular disease Hx of tonsillectomy Stented coronary artery - Family History Family History: Family History (Last Reviewed 07/12/18 @ 13:15 by Mariza Schafer MD) Father Family history of heart disease Family history of dementia Mother Family history of heart disease Family history of diabetes mellitus Grandparent Family history of diabetes mellitus - Tobacco History Second Hand Smoke Exposure: No Smoking Status: Never smoker - Alcohol History How Often Do You Have a Drink Containing Alcohol: Never - Substance Use History Substance History: No History of Abuse - Travel History Recent Travel in the [place] Within the Last 8 Weeks: No Recent Travel Out of the Country Within the Last 8 Weeks: No - Immunization History Tetanus Immunization: Unsure Hx Influenza Vaccine This Season: Yes Medications and Allergies Active Medications: Active Medications Al Hydroxide/Mg Hydroxide (Milk Of Magnesia Liq) 30 ml PO Q12H PRN PRN Reason: Mild Constipation Bisacodyl (Dulcolax Supp) 10 mg RECTAL DAILY PRN PRN Reason: SEVERE CONSITIPATION Vancomycin HCl 1,000 mg/ (Sodium Chloride) 250 mls @ 250 mls/hr IV.SIG STEAMER GUM CANDY [facility] Last Infusion: 07/19/18 23:35 Dose: Infused Sodium Chloride (Ns Inj) 500 mls @ 0 mls/hr IV.SIG BOLUS SAEED Last Infusion: 07/20/18 00:46 Dose: Infused Cefepime HCl 2,000 mg/ Sodium (Chloride) 100 mls @ 200 mls/hr IV.SIG Q8H SAEED Sodium Chloride (Ns Inj) 1,000 mls @ 45 mls/hr IV.CONT .[id number] SAEED Last Admin: 07/20/18 00:46 Dose: 45 mls/hr Lactulose (Lactulose Liq) 30 ml PO DAILY PRN PRN Reason: SEVERE CONSITIPATION Pharmacy Profile Note (Vancomycin Consult Pharmacy) 1 each OTHER UNSCH PRN PRN Reason: Pharmacy to dose Sennosides (Senokot) 17.2 mg PO Q12H PRN PRN Reason: Moderate Constipation Allergies Allergy/AdvReac Type Severity Reaction Status Date / Time morphine Allergy Severe HIVES Verified 07/14/18 11:55 penicillin G Allergy Severe HIVES Verified 07/14/18 11:55 Quinolones Allergy Hives Verified 07/19/18 23:21 Home Medications Medication Instructions Recorded Confirmed Type apixaban [Eliquis] 5 mg PO BID 06/10/18 07/19/18 History atorvastatin 20 mg PO DAILY 06/10/18 07/19/18 History furosemide [Lasix] 20 mg PO DAILY 06/10/18 07/19/18 History gabapentin 300 mg PO BID 06/10/18 07/19/18 History ondansetron HCl [Zofran] 4 mg PO TID-QID PRN 06/10/18 07/19/18 History pantoprazole 40 mg PO DAILY 06/10/18 07/19/18 History potassium chloride 20 meq PO DAILY 06/10/18 07/19/18 History pramipexole 0.5 mg PO QPM 06/10/18 07/19/18 History sucralfate [Carafate] 1 g PO DAILY 06/10/18 07/19/18 History tizanidine 2 mg PO TID PRN 06/10/18 07/19/18 History ferrous sulfate [FeroSul] 325 mg PO DAILY 07/13/18 07/19/18 History insulin glargine [Lantus U-100 12 unit SUB-Q QAM 07/13/18 07/19/18 History Insulin] insulin glargine [Lantus U-100 13 unit SUB-Q HS 07/13/18 07/19/18 History Insulin] multivitamin 1 tab PO DAILY 07/13/18 07/19/18 History nebivolol [Bystolic] 10 mg PO BID 07/13/18 07/19/18 History Exam Vital signs: Vital Signs 07/19/18 20:30 07/19/18 20:38 07/19/18 20:51 Temperature 99.9 F H Pulse Rate Respiratory Rate 20 20 Blood Pressure 182/75 H 182/75 H Pulse Oximetry 92 L 95 95 07/19/18 20:54 07/19/18 21:45 07/19/18 21:55 Temperature Pulse Rate 87 88 Respiratory Rate 18 18 Blood Pressure Pulse Oximetry 95 07/19/18 22:05 Temperature Pulse Rate 85 Respiratory Rate 18 Blood Pressure Pulse Oximetry Intake & Output 07/19/18 07/19/18 07/20/18 06:59 18:59 06:59 Intake Total 850 / 850 Balance 850 / 850 Weight 70.307 kg Intake: IV 850 / 850 Maxipime Inj 2,000 MG In NS Inj 100 / 100 100 ML @ 200 mls/hr IV.SIG ONCE ONE Rx#:[id number] NS Inj 500 ML @ Wide Open IV. 500 / 500 SIG BOLUS [facility] Rx#:[id number] Vancomycin Inj 1,000 MG In NS 250 / 250 Inj 250 ML @ 250 mls/hr IV.SIG STEAMER GUM CANDY [facility] Rx#:[id number] Narrative: GENERAL: Patient lying in bed sleeping, wakes up for exam. Appears comfortable. SKIN: Warm and dry. HEAD: Atraumatic. Normocephalic. EYES: Pupils equal and round. No scleral icterus. No injection or drainage. ENT: No nasal bleeding or discharge. Mucous membranes pink and moist. NECK: Trachea midline. No JVD. CARDIOVASCULAR: Regular rate and rhythm. RESPIRATORY: No accessory muscle use. Clear to auscultation. Breath sounds equal bilaterally. GASTROINTESTINAL: Abdomen soft, non-tender, nondistended. Hepatic and splenic margins not palpable. MUSCULOSKELETAL: Extremities without clubbing, cyanosis, or edema. No obvious deformities. Left groin with wound VAC in place. No surrounding erythema NEUROLOGICAL: Awake and alert. No obvious cranial nerve deficits. Motor grossly within normal limits. Five out of 5 muscle strength in the arms and legs. Normal speech. PSYCHIATRIC: Appropriate mood and affect; insight and judgment normal. Results - Labs CBC & Chem 7: 07/19/18 20:46 07/19/18 20:46 Labs: Short CBC 07/19/18 Range/Units 20:46 WBC 14.1 H (4.0-11.0) th/mm3 Hgb 11.0 L (11.6-15.3) gm/dL Hct 33.1 L (35.0-46.0) % Plt Count 316 (150-450) th/mm3 BMP 07/19/18 20:46 Sodium 135 L Potassium 4.4 Chloride 94 L Carbon Dioxide 30.2 BUN 33 H Creatinine 1.34 H Calcium 8.5 Cardiac Enzymes 07/19/18 Range/Units 20:46 Total Creatine Kinase 65 (26-192) U/L Troponin I 0.04 (0.02-0.05) ng/mL Liver Function 07/19/18 Range/Units 20:46 Total Bilirubin 0.5 (0.2-1.0) mg/dL AST 26 (15-37) U/L ALT 41 (10-53) U/L Alkaline Phosphatase 105 (45-117) U/L Albumin 2.8 L (3.4-5.0) g/dL Urine 07/20/18 Range/Units 01:22 Urine Color Yellow (Yellw/Straw) Urine Clarity Clear (Clear) Urine pH 6.0 (5.0-8.5) Ur Specific [place] 1.013 (1.002-1.035) Urine Protein 30 H (Neg-Trace) mg/dL Urine Glucose (UA) 50 (Negative) mg/dL - Imaging Impressions Chest X-Ray 07/19/18 20:38 CONCLUSION: Right lower lung consolidation or atelectasis. Given the history, this likely represents an area of pneumonia. Caprini VTE Risk Assessment Caprini VTE Risk Assessment: Moderate/High Risk (score >= 2) Caprini Risk Assessment Model: Point Value = 1 Point Value = 2 Point Value = 3 Point Value = 5 Age 41-60 Minor surgery BMI > 25 kg/m2 Swollen legs Varicose veins or History of unexplained or recurrent spontaneous Oral contraceptives or hormone replacement Sepsis (< 1 month) Serious lung disease, including pneumonia (< 1 month) Abnormal pulmonary function Acute myocardial infarction Congestive heart failure (< 1 month) History of inflammatory bowel disease Medical patient at bed rest Age 61-74 Arthroscopic surgery Major open surgery (> 45 min) Laparoscopic surgery (> 45 min) Malignancy Confined to bed (> 72 hours) Immobilizing plaster cast Central venous access Age >= 75 History of VTE Family history of VTE Factor V Leiden Prothrombin [id number] Lupus anticoagulant Anticardiolipin antibodies Elevated serum homocysteine Heparin-induced thrombocytopenia Other congenital or acquired thrombophilia Stroke (< 1 month) Elective arthroplasty Hip, pelvis, or leg fracture Acute spinal cord injury (< 1 month) Prophylaxis Regimen: Total Risk Factor Score Risk Level Prophylaxis Regimen 0-1 Low Early ambulation 2 Moderate Order ONE of the following: *Sequential Compression Device (SCD) *Heparin 5000 units SQ BID 3-4 Higher Order ONE of the following medications: *Heparin 5000 units SQ TID *Enoxaparin/Lovenox 40 mg SQ daily (WT < 150 kg, CrCl > 30 mL/min) *Enoxaparin/Lovenox 30 mg SQ daily (WT < 150 kg, CrCl > 10-29 mL/min) *Enoxaparin/Lovenox 30 mg SQ BID (WT < 150 kg, CrCl > 30 mL/min) AND/OR *Sequential Compression Device (SCD) 5 or more Highest Order ONE of the following medications: *Heparin 5000 units SQ TID (Preferred with Epidurals) *Enoxaparin/Lovenox 40 mg SQ daily (WT < 150 kg, CrCl > 30 mL/min) *Enoxaparin/Lovenox 30 mg SQ daily (WT < 150 kg, CrCl > 10-29 mL/min) *Enoxaparin/Lovenox 30 mg SQ BID (WT < 150 kg, CrCl > 30 mL/min) AND *Sequential Compression Device (SCD) Assessment and Plan - Plan //Healthcare associated pneumonia //Suspected sepsis. -Right lower lobe pneumonia on chest x-ray. Recent admission. Leukocytosis. Lactate within normal limits. = Blood cultures are ordered by ER and pending. = Urinalysis does not appear infectious. We will start on broad-spectrum antibiotics. //COPD exacerbation. Received Solu-Medrol in the ER. We will continue duo nebs , Symbicort //Weakness, history of CVA Up with assist. PT, OT. //Peripheral artery disease Status post left femoral bypass With left femoral pseudoaneurysm explored on 07/15. Continue with wound VAC. Will consult Dr. Farrell. Anticoagulation as per surgical service. //Chronic anemia and GI bleed Stable during recent hospitalization. Monitor. //Diabetes mellitus Insulin sliding scale, diabetic diet, //Hyperlipidemia. Chronic. Continue statin. //Hypertension. Continue home medications. Continue to monitor. //GERD. Continue home meds. Discussed Condition With: Patient, nurse, ED physician.
[2018-07-20] MEDS: Sucralfate 1 GM Tablet PO SCH (06:03)
[2018-07-20 07:05] LABS: Baso % (Auto) 0.1 % (0.0-2.0); Hematocrit 29.9 % (35.0-46.0); Hemoglobin 9.9 gm/dL (11.6-15.3); Lymph # (Auto) 0.5 th/mm3 (1.0-4.8); Lymph % (Auto) 2.7 % (9.0-44.0); Mean Corpuscular HGB Conc 33.2 % (32.0-36.0); Mean Corpuscular Hemoglobin 31.6 pg (27.0-34.0); Mean Corpuscular Volume 95.3 fL (80.0-100.0); Mean Platelet Volume 8.6 fL (7.0-11.0); Mono # (Auto) 0.6 th/mm3 (0.0-0.9); Mono % (Auto) 3.2 % (0.0-8.0); Neut # (Auto) 18.6 th/mm3 (1.8-7.7); Platelet Count 283 th/mm3 (150-450); Red Blood Count 3.14 mil/mm3 (4.00-5.30); Red Cell Distribution Width 14.9 % (11.6-17.2); White Blood Count 19.8 th/mm3 (4.0-11.0)
[2018-07-20 07:29] LABS: Alanine Aminotransferase 35 U/L (10-53); Albumin 2.6 g/dL (3.4-5.0); Anion Gap 11 meq/L (5-15); Aspartate Aminotransferase 20 U/L (15-37); Blood Urea Nitrogen 28 mg/dL (7-18); Calcium 8.2 mg/dL (8.5-10.1); Carbon Dioxide 27.1 meq/L (21.0-32.0); Chloride 96 meq/L (98-107); Glomerular Filtration Rate 45 mL/min (>89); Glucose,Random 325 mg/dL (74-106); Potassium 4.7 meq/L (3.5-5.1); Sodium 134 meq/L (136-145)
[2018-07-20 07:32] LABS: Alkaline Phosphatase 89 U/L (45-117); Total Protein 6.6 g/dL (6.4-8.2)
[2018-07-20] MEDS: Lisinopril 10 MG Tablet PO SCH (09:19)
[2018-07-20] MEDS: Insulin Detemir Inj 1,000 UNIT/10 ML Vial SQ SCH ×2 (09:20→20:48)
[2018-07-20] MEDS: Insulin NovoLOG Aspart Correctional Sugar Inj SQ SCH ×4 (09:21→20:47)
[2018-07-20] MEDS: predniSONE 10 MG Tablet PO SCH (09:23)
--- NOTE | 2018-07-20 11:38 | P.PNVS ---
Subjective Subjective/Hospital Course: Pt well known to me, s/p L groin exploration. Discharged and readmitted yesterday. Appears clinically to have pneumonia. Objective Vital Signs / I&O: Vital Signs 07/19/18 20:30 07/19/18 20:38 07/19/18 20:51 Temperature 99.9 F H Pulse Rate Respiratory Rate 20 20 Blood Pressure 182/75 H 182/75 H Pulse Oximetry 92 L 95 95 07/19/18 20:54 07/19/18 21:45 07/19/18 21:55 Temperature Pulse Rate 87 88 Respiratory Rate 18 18 Blood Pressure Pulse Oximetry 95 07/19/18 22:05 07/20/18 03:09 07/20/18 06:00 Temperature 98 F Pulse Rate 85 62 65 Respiratory Rate 18 18 14 Blood Pressure 180/79 H Pulse Oximetry 99 07/20/18 07:30 07/20/18 07:38 07/20/18 08:00 Temperature 97.8 F Pulse Rate 64 66 67 Respiratory Rate 17 18 17 Blood Pressure 180/79 H 159/70 H Pulse Oximetry 97 96 07/20/18 08:59 07/20/18 09:00 07/20/18 09:50 Temperature Pulse Rate 66 65 60 Respiratory Rate 18 17 Blood Pressure 192/74 H 181/81 H Pulse Oximetry 97 95 Intake & Output 07/19/18 07/20/18 07/20/18 18:59 06:59 18:59 Intake Total 950 / 950 Output Total 1080 / 1080 Balance -130 / -130 Weight 70.307 kg Intake: IV 950 / 950 Maxipime Inj 2,000 MG In NS Inj 200 / 200 100 ML @ 200 mls/hr IV.SIG Q8H SAEED Rx#:[id number] NS Inj 500 ML @ Wide Open IV. 500 / 500 SIG BOLUS SAEED Rx#:[id number] Vancomycin Inj 1,000 MG In NS 250 / 250 Inj 250 ML @ 250 mls/hr IV.SIG COLLATOR HAND SAEED Rx#:[id number] Output: Urine 1080 / 1080 Other: # Voids 5 # Urine Diapers 1 Physical Exam: + cough L groin Prevena in place and no surrounding erythema Laboratory Results - last 24 hr 07/19/18 07/19/18 07/19/18 20:46 20:46 20:46 WBC 14.1 H RBC 3.45 L Hgb 11.0 L Hct 33.1 L MCV 95.9 MCH 31.8 MCHC 33.1 RDW 14.6 Plt Count 316 MPV 8.7 Neut % (Auto) 90.8 H Lymph % (Auto) 3.4 L [place] % (Auto) 5.6 Eos % (Auto) 0.1 Baso % (Auto) 0.1 Neut # (Auto) 12.8 H Lymph # (Auto) 0.5 L [place] # (Auto) 0.8 Eos # (Auto) 0.0 Baso # (Auto) 0.0 WBC Differential . Differential Comment Auto diff final PT 11.4 INR 1.1 APTT 22.4 L Sodium 135 L Potassium 4.4 Chloride 94 L Carbon Dioxide 30.2 Anion Gap 11 BUN 33 H Creatinine 1.34 H Estimated GFR 38 L POC Glucose Random Glucose 249 H Lactic Acid Calcium 8.5 Total Bilirubin 0.5 AST 26 ALT 41 Alkaline Phosphatase 105 Total Creatine Kinase 65 Troponin I 0.04 Total Protein 7.0 Albumin 2.8 L Urine Color Urine Clarity Urine pH Ur Specific [place] Urine Protein Urine Glucose (UA) Urine Ketones Urine Occult Blood Urine Nitrate Urine Bilirubin Urine Urobilinogen Ur Leukocyte Esterase Urine RBC Urine WBC Ur Squamous Epith Cells Ur Transition Epith Cell Micro UA Comment Ur Microscopic Review Urine Culture Comments 07/19/18 07/20/18 07/20/18 20:55 01:22 06:10 WBC RBC Hgb Hct MCV MCH MCHC RDW Plt Count MPV Neut % (Auto) Lymph % (Auto) [place] % (Auto) Eos % (Auto) Baso % (Auto) Neut # (Auto) Lymph # (Auto) [place] # (Auto) Eos # (Auto) Baso # (Auto) WBC Differential Differential Comment PT INR APTT Sodium 134 L Potassium 4.7 Chloride 96 L Carbon Dioxide 27.1 Anion Gap 11 BUN 28 H Creatinine 1.15 H Estimated GFR 45 L POC Glucose Random Glucose 325 H Lactic Acid 1.5 Calcium 8.2 L Total Bilirubin 0.5 AST 20 ALT 35 Alkaline Phosphatase 89 Total Creatine Kinase Troponin I Total Protein 6.6 Albumin 2.6 L Urine Color Yellow Urine Clarity Clear Urine pH 6.0 Ur Specific [place] 1.013 Urine Protein 30 H Urine Glucose (UA) 50 Urine Ketones Negative Urine Occult Blood Negative Urine Nitrate Negative Urine Bilirubin Negative Urine Urobilinogen Less than 2 Ur Leukocyte Esterase Trace H Urine RBC Less than 1 Urine WBC 4 Ur Squamous Epith Cells 1 Ur Transition Epith Cell 2 Micro UA Comment Culture not ind Ur Microscopic Review Not Reportable Urine Culture Comments Culture not ind 07/20/18 07/20/18 06:18 11:19 WBC 19.8 H RBC 3.14 L Hgb 9.9 L Hct 29.9 L MCV 95.3 MCH 31.6 MCHC 33.2 RDW 14.9 Plt Count 283 MPV 8.6 Neut % (Auto) 94.0 H Lymph % (Auto) 2.7 L [place] % (Auto) 3.2 Eos % (Auto) 0.0 Baso % (Auto) 0.1 Neut # (Auto) 18.6 H Lymph # (Auto) 0.5 L [place] # (Auto) 0.6 Eos # (Auto) 0.0 Baso # (Auto) 0.0 WBC Differential . Differential Comment Auto diff final PT INR APTT Sodium Potassium Chloride Carbon Dioxide Anion Gap BUN Creatinine Estimated GFR POC Glucose 385 H Random Glucose Lactic Acid Calcium Total Bilirubin AST ALT Alkaline Phosphatase Total Creatine Kinase Troponin I Total Protein Albumin Urine Color Urine Clarity Urine pH Ur Specific [place] Urine Protein Urine Glucose (UA) Urine Ketones Urine Occult Blood Urine Nitrate Urine Bilirubin Urine Urobilinogen Ur Leukocyte Esterase Urine RBC Urine WBC Ur Squamous Epith Cells Ur Transition Epith Cell Micro UA Comment Ur Microscopic Review Urine Culture Comments Microbiology 07/19/18 20:55 Aerobic Blood Culture - Preliminary Blood - Peripheral No growth in 1 day Anaerobic Blood Culture - Preliminary No growth in 1 day 07/19/18 20:50 Aerobic Blood Culture - Preliminary Blood - Peripheral No growth in 1 day Anaerobic Blood Culture - Preliminary No growth in 1 day Impressions Chest X-Ray 07/19/18 20:38 CONCLUSION: Right lower lung consolidation or atelectasis. Given the history, this likely represents an area of pneumonia. Assessment and Plan - Assessment (1) Femoral artery pseudo-aneurysm, left Code(s): I72.4 - Aneurysm of artery of lower extremity Status: Acute - Plan From a vascular standpoint, will remove Prevena (POD#7). No evidence of wound/surgical site infection. Will follow.
[2018-07-20] MEDS: Tiotropium Bromide 18 MCG/ACT Inhaler INH SCH (12:35)
[2018-07-20] MEDS ORDERED: Acetaminophen 500 MG Tablet PO ONE (16:15)
--- NOTE | 2018-07-20 16:21 | ECG ---
Date Performed: 07/19/2018 Time Performed: 21:04:15 PTAGE: 82 years EKG: ELECTRONIC VENTRICULAR PACEMAKER Since the previous tracing, no significant change noted AB NORMAL RHYTHM ECG PREVIOUS TRACING : 07/12/2018 12.58 DOCTOR: Chadd Vallejo Interpretating Date/Time 07/20/2018 16:17:51
--- NOTE | 2018-07-20 16:56 | P.PN ---
Subjective Interval history: BRIEF NOTE Nursing denies any deterioration since last night except for a few possible PVCs. Patient herself says she feels just a little better since admission. Mild crackles heard in bilateral lung rogers, unlabored breathing, patient appears fatigued. My independent review of the chest x-ray from shows an obvious right lower lobe infiltrate; review of EKG shows pacer spikes with very scattered possible runs of NS VT. Patient affirms that she has a pacer but no ICD. Last known echo per Dr. Nova was in February with EF of 50-55%. Continue antibiotics. Monitor tele-strips for further arrhythmias. surgery planning to remove Prevena . . Physical Exam Vital signs: Vital Signs 07/19/18 20:30 07/19/18 20:38 07/19/18 20:51 Temperature 99.9 F H Pulse Rate Respiratory Rate 20 20 Blood Pressure 182/75 H 182/75 H Pulse Oximetry 92 L 95 95 07/19/18 20:54 07/19/18 21:45 07/19/18 21:55 Temperature Pulse Rate 87 88 Respiratory Rate 18 18 Blood Pressure Pulse Oximetry 95 07/19/18 22:05 07/20/18 03:09 07/20/18 06:00 Temperature 98 F Pulse Rate 85 62 65 Respiratory Rate 18 18 14 Blood Pressure 180/79 H Pulse Oximetry 99 07/20/18 07:30 07/20/18 07:38 07/20/18 08:00 Temperature 97.8 F Pulse Rate 64 66 67 Respiratory Rate 17 18 17 Blood Pressure 180/79 H 159/70 H Pulse Oximetry 97 96 07/20/18 08:59 07/20/18 09:00 07/20/18 09:50 Temperature Pulse Rate 66 65 60 Respiratory Rate 18 17 Blood Pressure 192/74 H 181/81 H Pulse Oximetry 97 95 07/20/18 16:17 Temperature Pulse Rate 61 Respiratory Rate 18 Blood Pressure Pulse Oximetry 98 Intake & Output 07/19/18 07/20/18 07/20/18 18:59 06:59 18:59 Intake Total 950 / 950 Output Total 1080 / 1080 Balance -130 / -130 Weight 70.307 kg Intake: IV 950 / 950 Maxipime Inj 2,000 MG In NS Inj 200 / 200 100 ML @ 200 mls/hr IV.SIG Q8H SAEED Rx#:[id number] NS Inj 500 ML @ Wide Open IV. 500 / 500 SIG BOLUS SAEED Rx#:[id number] Vancomycin Inj 1,000 MG In NS 250 / 250 Inj 250 ML @ 250 mls/hr IV.SIG CHEF KITCHEN MANAGER SAEED Rx#:[id number] Output: Urine 1080 / 1080 Other: # Voids 5 # Urine Diapers 1 Results - Labs CBC & Chem 7: 07/20/18 06:18 07/20/18 06:10 Laboratory Results - last 24 hr 07/19/18 07/19/18 07/19/18 20:46 20:46 20:46 WBC 14.1 H RBC 3.45 L Hgb 11.0 L Hct 33.1 L MCV 95.9 MCH 31.8 MCHC 33.1 RDW 14.6 Plt Count 316 MPV 8.7 Neut % (Auto) 90.8 H Lymph % (Auto) 3.4 L [place] % (Auto) 5.6 Eos % (Auto) 0.1 Baso % (Auto) 0.1 Neut # (Auto) 12.8 H Lymph # (Auto) 0.5 L [place] # (Auto) 0.8 Eos # (Auto) 0.0 Baso # (Auto) 0.0 WBC Differential . Differential Comment Auto diff final PT 11.4 INR 1.1 APTT 22.4 L Sodium 135 L Potassium 4.4 Chloride 94 L Carbon Dioxide 30.2 Anion Gap 11 BUN 33 H Creatinine 1.34 H Estimated GFR 38 L POC Glucose Random Glucose 249 H Lactic Acid Calcium 8.5 Total Bilirubin 0.5 AST 26 ALT 41 Alkaline Phosphatase 105 Total Creatine Kinase 65 Troponin I 0.04 Total Protein 7.0 Albumin 2.8 L Urine Color Urine Clarity Urine pH Ur Specific [place] Urine Protein Urine Glucose (UA) Urine Ketones Urine Occult Blood Urine Nitrate Urine Bilirubin Urine Urobilinogen Ur Leukocyte Esterase Urine RBC Urine WBC Ur Squamous Epith Cells Ur Transition Epith Cell Micro UA Comment Ur Microscopic Review Urine Culture Comments 07/19/18 07/20/18 07/20/18 20:55 01:22 06:10 WBC RBC Hgb Hct MCV MCH MCHC RDW Plt Count MPV Neut % (Auto) Lymph % (Auto) [place] % (Auto) Eos % (Auto) Baso % (Auto) Neut # (Auto) Lymph # (Auto) [place] # (Auto) Eos # (Auto) Baso # (Auto) WBC Differential Differential Comment PT INR APTT Sodium 134 L Potassium 4.7 Chloride 96 L Carbon Dioxide 27.1 Anion Gap 11 BUN 28 H Creatinine 1.15 H Estimated GFR 45 L POC Glucose Random Glucose 325 H Lactic Acid 1.5 Calcium 8.2 L Total Bilirubin 0.5 AST 20 ALT 35 Alkaline Phosphatase 89 Total Creatine Kinase Troponin I Total Protein 6.6 Albumin 2.6 L Urine Color Yellow Urine Clarity Clear Urine pH 6.0 Ur Specific [place] 1.013 Urine Protein 30 H Urine Glucose (UA) 50 Urine Ketones Negative Urine Occult Blood Negative Urine Nitrate Negative Urine Bilirubin Negative Urine Urobilinogen Less than 2 Ur Leukocyte Esterase Trace H Urine RBC Less than 1 Urine WBC 4 Ur Squamous Epith Cells 1 Ur Transition Epith Cell 2 Micro UA Comment Culture not ind Ur Microscopic Review Not Reportable Urine Culture Comments Culture not ind 07/20/18 07/20/18 06:18 11:19 WBC 19.8 H RBC 3.14 L Hgb 9.9 L Hct 29.9 L MCV 95.3 MCH 31.6 MCHC 33.2 RDW 14.9 Plt Count 283 MPV 8.6 Neut % (Auto) 94.0 H Lymph % (Auto) 2.7 L [place] % (Auto) 3.2 Eos % (Auto) 0.0 Baso % (Auto) 0.1 Neut # (Auto) 18.6 H Lymph # (Auto) 0.5 L [place] # (Auto) 0.6 Eos # (Auto) 0.0 Baso # (Auto) 0.0 WBC Differential . Differential Comment Auto diff final PT INR APTT Sodium Potassium Chloride Carbon Dioxide Anion Gap BUN Creatinine Estimated GFR POC Glucose 385 H Random Glucose Lactic Acid Calcium Total Bilirubin AST ALT Alkaline Phosphatase Total Creatine Kinase Troponin I Total Protein Albumin Urine Color Urine Clarity Urine pH Ur Specific [place] Urine Protein Urine Glucose (UA) Urine Ketones Urine Occult Blood Urine Nitrate Urine Bilirubin Urine Urobilinogen Ur Leukocyte Esterase Urine RBC Urine WBC Ur Squamous Epith Cells Ur Transition Epith Cell Micro UA Comment Ur Microscopic Review Urine Culture Comments Microbiology 07/19/18 20:55 Blood - Peripheral Aerobic Blood Culture - Preliminary No growth in 1 day 07/19/18 20:55 Blood - Peripheral Anaerobic Blood Culture - Preliminary No growth in 1 day 07/19/18 20:50 Blood - Peripheral Aerobic Blood Culture - Preliminary No growth in 1 day 07/19/18 20:50 Blood - Peripheral Anaerobic Blood Culture - Preliminary No growth in 1 day - Imaging Impressions Chest X-Ray 07/19/18 20:38 CONCLUSION: Right lower lung consolidation or atelectasis. Given the history, this likely represents an area of pneumonia.
[2018-07-20] MEDS: Benzonatate 100 MG Capsule PO PRN (17:28)
[2018-07-20] MEDS: hydrALAZINE 25 MG Tablet PO SCH (17:29)
[2018-07-20] MEDS: Furosemide 20 MG Tablet PO SCH (17:29)
[2018-07-20] MEDS: Budesonide-Formoterol 80/4.5 MCG 6.9 GM Inhaler INH SCH (20:34)
[2018-07-20] MEDS: Vancomycin Inj 1,000 MG in Sodium Chlor 0.9% Inj 250 ML IV.SIG SCH (21:09)
[2018-07-20] MEDS: LORazepam 1 MG Tablet PO PRN (23:32)
[2018-07-21] MEDS: Sucralfate 1 GM Tablet PO SCH (06:00)
[2018-07-21] MEDS ORDERED: Enoxaparin Inj 30 MG/0.3 ML Syringe SQ SCH (09:15)
[2018-07-21] MEDS: predniSONE 10 MG Tablet PO SCH (09:34)
[2018-07-21] MEDS: Lisinopril 10 MG Tablet PO SCH (09:34)
[2018-07-21] MEDS: Furosemide 20 MG Tablet PO SCH (09:34)
[2018-07-21] MEDS: Insulin NovoLOG Aspart Correctional Sugar Inj SQ SCH ×4 (09:35→20:48)
[2018-07-21] MEDS: Tiotropium Bromide 18 MCG/ACT Inhaler INH SCH (09:35)
[2018-07-21] MEDS: Budesonide-Formoterol 80/4.5 MCG 6.9 GM Inhaler INH SCH ×2 (09:35→20:39)
[2018-07-21] MEDS: Insulin Detemir Inj 1,000 UNIT/10 ML Vial SQ SCH ×2 (09:42→20:51)
[2018-07-21] MEDS: hydrALAZINE 25 MG Tablet PO SCH ×3 (10:22→17:31)
[2018-07-21 10:33] LABS: Baso % (Auto) 0.1 % (0.0-2.0); Eos # (Auto) 0.4 th/mm3 (0.0-0.4); Eos % (Auto) 2.4 % (0.0-4.0); Hematocrit 32.9 % (35.0-46.0); Hemoglobin 10.8 gm/dL (11.6-15.3); Lymph # (Auto) 1.3 th/mm3 (1.0-4.8); Lymph % (Auto) 8.6 % (9.0-44.0); Mean Corpuscular HGB Conc 32.8 % (32.0-36.0); Mean Corpuscular Hemoglobin 31.6 pg (27.0-34.0); Mean Corpuscular Volume 96.3 fL (80.0-100.0); Mean Platelet Volume 8.3 fL (7.0-11.0); Mono # (Auto) 0.8 th/mm3 (0.0-0.9); Mono % (Auto) 5.5 % (0.0-8.0); Neut # (Auto) 12.9 th/mm3 (1.8-7.7); Neut % (Auto) 83.4 % (16.0-70.0); Platelet Count 295 th/mm3 (150-450); Red Blood Count 3.42 mil/mm3 (4.00-5.30); Red Cell Distribution Width 15.2 % (11.6-17.2); White Blood Count 15.5 th/mm3 (4.0-11.0)
[2018-07-21 10:53] LABS: Calcium 8.6 mg/dL (8.5-10.1); Carbon Dioxide 31.5 meq/L (21.0-32.0); Magnesium 2.4 mg/dL (1.5-2.5); Potassium 4.1 meq/L (3.5-5.1)
--- NOTE | 2018-07-21 13:53 | P.PN ---
Subjective Interval history: Follow-up visit pneumonia, DM, Left groin prevena, S/P left groin exploration. Patient seen and examined today. Tearful, crying. Patient states that her family is not here to visit her. She reports of her granddaughter, . States poor appetite. States she does not feel well. Denies SOB/ dyspnea states okay because she has no activity. Denies chest pain, palpitations, headaches, dizziness. Denies n/v/d. Denies dysuria. Physical Exam Vital signs: Vital Signs 07/20/18 16:00 07/20/18 16:17 07/20/18 18:47 Temperature 99 F Pulse Rate 67 61 Respiratory Rate 20 18 Blood Pressure 197/87 H Pulse Oximetry 95 98 95 07/20/18 20:00 07/20/18 20:02 07/20/18 23:17 Temperature 98.5 F Pulse Rate 61 65 59 L Respiratory Rate 17 16 Blood Pressure 189/77 H 181/85 H Pulse Oximetry 97 07/20/18 23:52 07/21/18 00:00 07/21/18 04:00 Temperature 98.4 F 98.0 F Pulse Rate 66 69 63 Respiratory Rate 18 16 17 Blood Pressure 189/87 H 167/73 H Pulse Oximetry 99 97 07/21/18 04:41 07/21/18 08:00 07/21/18 08:56 Temperature 97.4 F L Pulse Rate 60 61 60 Respiratory Rate 20 16 12 Blood Pressure 168/79 H Pulse Oximetry 96 99 07/21/18 09:00 07/21/18 12:00 Temperature 97.7 F Pulse Rate 65 82 Respiratory Rate 16 Blood Pressure 172/73 H Pulse Oximetry 96 97 Intake & Output 07/20/18 07/21/18 07/21/18 18:59 06:59 18:59 Intake Total 100 / 100 1450 / 1450 Output Total 1080 / 1080 Balance -980 / -980 1450 / 1450 Weight 75.6 kg Intake: IV 100 / 100 1450 / 1450 NS Inj 1,000 ML @ 45 mls/hr IV. 1000 / 1000 CONT .[id number] [facility] Rx#:[id number] Maxipime Inj 2,000 MG In NS Inj 100 / 100 200 / 200 100 ML @ 200 mls/hr IV.SIG Q8H [facility] Rx#:[id number] Vancomycin Inj 1,000 MG In NS 250 / 250 Inj 250 ML @ 250 mls/hr IV.SIG Q24H [facility] Rx#:[id number] Output: Urine 1080 / 1080 Other: # Voids 5 8 # Urine Diapers 1 # Bowel Movements 2 Narrative: GENERAL: This is a well-nourished, well-developed patient, in no apparent distress. SKIN: Warm and dry. HEENT: Normocephalic. Pupils equal round and reactive. Nose without bleeding. Airway patent. NECK: Trachea midline. Supple. CARDIOVASCULAR: Regular rate and rhythm without murmurs, gallops, or rubs. RESPIRATORY: Right base crackles. Diminished BS. GASTROINTESTINAL: Abdomen soft, non-tender, nondistended. Bowel Sounds hypoactive. MUSCULOSKELETAL: Extremities without clubbing, cyanosis, or edema. Left Groin prevena in place. NEUROLOGICAL: Awake and alert. Oriented to place, person. No focal neuro deficit. Moves all extremities. Normal speech. Results - Labs CBC & Chem 7: 07/21/18 09:56 07/21/18 09:56 Laboratory Results - last 24 hr 07/20/18 07/20/18 07/21/18 18:00 20:43 09:26 WBC RBC Hgb Hct MCV MCH MCHC RDW Plt Count MPV Neut % (Auto) Lymph % (Auto) [place] % (Auto) Eos % (Auto) Baso % (Auto) Neut # (Auto) Lymph # (Auto) [place] # (Auto) Eos # (Auto) Baso # (Auto) WBC Differential Differential Comment Sodium Potassium Chloride Carbon Dioxide Anion Gap BUN Creatinine Estimated GFR POC Glucose 236 H 235 H 83 Random Glucose Calcium Magnesium 07/21/18 07/21/18 07/21/18 09:56 09:56 12:19 WBC 15.5 H RBC 3.42 L Hgb 10.8 L Hct 32.9 L MCV 96.3 MCH 31.6 MCHC 32.8 RDW 15.2 Plt Count 295 MPV 8.3 Neut % (Auto) 83.4 H Lymph % (Auto) 8.6 L [place] % (Auto) 5.5 Eos % (Auto) 2.4 Baso % (Auto) 0.1 Neut # (Auto) 12.9 H Lymph # (Auto) 1.3 [place] # (Auto) 0.8 Eos # (Auto) 0.4 Baso # (Auto) 0.0 WBC Differential . Differential Comment Auto diff final Sodium 139 Potassium 4.1 Chloride 99 Carbon Dioxide 31.5 Anion Gap 9 BUN 25 H Creatinine 1.11 H Estimated GFR 47 L POC Glucose 298 H Random Glucose 128 H D Calcium 8.6 Magnesium 2.4 Microbiology 07/19/18 20:55 Blood - Peripheral Aerobic Blood Culture - Preliminary No growth in 2 days 07/19/18 20:55 Blood - Peripheral Anaerobic Blood Culture - Preliminary No growth in 2 days 07/19/18 20:50 Blood - Peripheral Aerobic Blood Culture - Preliminary No growth in 2 days 07/19/18 20:50 Blood - Peripheral Anaerobic Blood Culture - Preliminary No growth in 2 days Assessment and Plan - Plan 82-year-old female with a history of CKD, recurrent UTIs, CVA, peripheral artery disease, diabetes, recently discharged from the hospital yesterday having been treated for pseudoaneurysm of left tremor any bypass site, as well as generalized weakness. Healthcare associated pneumonia Suspected sepsis. -Right lower lobe pneumonia on chest x-ray. Recent admission. -Leukocytosis. Lactate within normal limits. Leukocytosis probably use of steroid. Trending down. -Blood cultures no growth to date -UA negative -Cefepime IV, Vanco IV COPD exacerbation -Received Solu-Medrol in the ER -Continue duo nebs, Symbicort, Spiriva -Tessalon Perles Weakness, history of CVA -PT, OT -Encourage activities Peripheral artery disease -Status post left femoral bypass -With left femoral pseudoaneurysm explored on 07/15. -Continue with wound VAC. Will consult Dr. Farrell. Anticoagulation as per surgical service. -Previously on eliquis Chronic anemia and GI bleed -Stable during recent hospitalization. Monitor. Diabetes mellitus -Insulin sliding scale, diabetic diet -Levemir 13 units HS, 12 units AM -Monitor BG Hyperlipidemia. Chronic. Continue statin. Hypertension. Continue home medications. Continue to monitor. GERD. Continue home meds. DVT Prop Code Status: Full code Discussed Condition With: Patient, nurse Discharge Planning: Plan to DC [facility] when clinically improved, cleared by Dr. Farrell.
[2018-07-21] MEDS ORDERED: Acetaminophen 325 MG Tablet PO PRN (16:54)
[2018-07-21] MEDS: Gabapentin 300 MG Capsule PO SCH (20:39)
[2018-07-21] MEDS ORDERED: Pharmacy Ordered Lab Info OTHER ONE (21:45)
[2018-07-21] MEDS: LORazepam 1 MG Tablet PO PRN (22:15)
[2018-07-21] MEDS: Vancomycin Inj 1,000 MG in Sodium Chlor 0.9% Inj 250 ML IV.SIG SCH (23:28)
[2018-07-22] MEDS ORDERED: Vancomycin Inj 500 MG in Sodium Chlor 0.9% Inj 100 ML IV.SIG ONE (01:00)
[2018-07-22] MEDS: Sod Chloride 0.9% Inj 1,000 ML IV.CONT SCH ×2 (01:42→18:13)
[2018-07-22] MEDS: Sucralfate 1 GM Tablet PO SCH (06:41)
[2018-07-22] MEDS: Ferrous Sulfate 325 MG Tablet PO SCH (09:02)
[2018-07-22] MEDS: predniSONE 10 MG Tablet PO SCH (09:02)
[2018-07-22] MEDS: LORazepam 1 MG Tablet PO SCH (09:02)
[2018-07-22] MEDS: Gabapentin 300 MG Capsule PO SCH ×2 (09:02→21:50)
--- NOTE | 2018-07-22 09:27 | P.PNVS ---
Subjective Subjective/Hospital Course: 82/F s/p L groin exploration admitted w/ pneumonia several days ago POD 7 Pt doing well this am and is in good spirits Pt completed BT Pt denied SOB or CP Pt denied pain to L groin Wound vac to L groin intact w/o hematoma or swelling Objective Vital Signs / I&O: Vital Signs 07/21/18 08:56 07/21/18 09:00 07/21/18 12:00 Temperature 97.7 F Pulse Rate 60 65 82 Respiratory Rate 12 16 Blood Pressure 172/73 H Pulse Oximetry 99 96 97 07/21/18 15:59 07/21/18 16:00 07/21/18 20:00 Temperature 98.3 F 98.1 F Pulse Rate 82 65 76 Respiratory Rate 16 16 17 Blood Pressure 177/80 H 185/77 H Pulse Oximetry 97 97 07/21/18 20:58 07/22/18 00:00 07/22/18 00:09 Temperature 97.6 F Pulse Rate 65 60 62 Respiratory Rate 16 17 20 Blood Pressure 197/76 H Pulse Oximetry 95 07/22/18 03:52 07/22/18 04:00 07/22/18 07:56 Temperature 97.5 F L Pulse Rate 61 63 62 Respiratory Rate 20 18 18 Blood Pressure 185/77 H Pulse Oximetry 96 97 Intake & Output 07/21/18 07/22/18 07/22/18 18:59 06:59 18:59 Intake Total 1900 / 1900 450 / 450 Output Total 5200 / 5200 1400 / 1400 Balance -3300 / -3300 -950 / -950 Weight 76.1 kg Intake: IV 1100 / 1100 450 / 450 NS Inj 1,000 ML @ 45 mls/hr IV. 1100 / 1100 CONT .[id number] [facility] Rx#:[id number] Maxipime Inj 2,000 MG In NS Inj 100 / 100 100 ML @ 200 mls/hr IV.SIG Q12H [facility] Rx#:[id number] Vancomycin Inj 1,000 MG In NS 250 / 250 Inj 250 ML @ 250 mls/hr IV.SIG Q24H [facility] Rx#:[id number] Vancomycin Inj 500 MG In NS Inj 100 / 100 100 ML @ 200 mls/hr IV.SIG ONCE ONE Rx#:[id number] Oral 800 / 800 Output: Urine 5200 / 5200 1400 / 1400 Other: # Voids 8 # Urine Diapers 1 # Bowel Movements 2 Physical Exam: LE warm w/ motor intact Left groin incision intact w/o R/D/S/O Laboratory Results - last 24 hr 07/21/18 07/21/18 07/21/18 09:26 09:56 09:56 WBC 15.5 H RBC 3.42 L Hgb 10.8 L Hct 32.9 L MCV 96.3 MCH 31.6 MCHC 32.8 RDW 15.2 Plt Count 295 MPV 8.3 Neut % (Auto) 83.4 H Lymph % (Auto) 8.6 L [place] % (Auto) 5.5 Eos % (Auto) 2.4 Baso % (Auto) 0.1 Neut # (Auto) 12.9 H Lymph # (Auto) 1.3 [place] # (Auto) 0.8 Eos # (Auto) 0.4 Baso # (Auto) 0.0 WBC Differential . Differential Comment Auto diff final Sodium 139 Potassium 4.1 Chloride 99 Carbon Dioxide 31.5 Anion Gap 9 BUN 25 H Creatinine 1.11 H Estimated GFR 47 L POC Glucose 83 Random Glucose 128 H D Calcium 8.6 Magnesium 2.4 Vancomycin Trough 07/21/18 07/21/18 07/21/18 12:19 18:04 20:45 WBC RBC Hgb Hct MCV MCH MCHC RDW Plt Count MPV Neut % (Auto) Lymph % (Auto) [place] % (Auto) Eos % (Auto) Baso % (Auto) Neut # (Auto) Lymph # (Auto) [place] # (Auto) Eos # (Auto) Baso # (Auto) WBC Differential Differential Comment Sodium Potassium Chloride Carbon Dioxide Anion Gap BUN Creatinine Estimated GFR POC Glucose 298 H 260 H 303 H Random Glucose Calcium Magnesium Vancomycin Trough 07/21/18 07/22/18 23:10 08:47 WBC RBC Hgb Hct MCV MCH MCHC RDW Plt Count MPV Neut % (Auto) Lymph % (Auto) [place] % (Auto) Eos % (Auto) Baso % (Auto) Neut # (Auto) Lymph # (Auto) [place] # (Auto) Eos # (Auto) Baso # (Auto) WBC Differential Differential Comment Sodium Potassium Chloride Carbon Dioxide Anion Gap BUN Creatinine Estimated GFR POC Glucose 272 H Random Glucose Calcium Magnesium Vancomycin Trough 10.1 H Microbiology 07/19/18 20:55 Aerobic Blood Culture - Preliminary Blood - Peripheral No growth in 2 days Anaerobic Blood Culture - Preliminary No growth in 2 days 07/19/18 20:50 Aerobic Blood Culture - Preliminary Blood - Peripheral No growth in 2 days Anaerobic Blood Culture - Preliminary No growth in 2 days Assessment and Plan - Assessment (1) Femoral artery pseudo-aneurysm, left Code(s): I72.4 - Aneurysm of artery of lower extremity Status: Acute - Plan 82/F s/p L groin exploration POD 7 doing well Pt ambulating w/ a walker Pt w/o evidence of wound/surgical site infection Plan Removed Prevena wound vac Discussed post operative care and management with pt Leave incision open to air- May apply a dry dressing if drainage present Pt clear for D/c from a vascular standpoint Arranged out pt f/u Pt aware of plan Lennie Roy NP [facility]/[place] [phone]
[2018-07-22] MEDS ORDERED: Lisinopril 20 MG Tablet PO ONE (09:30)
[2018-07-22] MEDS: Tiotropium Bromide 18 MCG/ACT Inhaler INH SCH (09:45)
[2018-07-22] MEDS: hydrALAZINE 25 MG Tablet PO SCH ×3 (09:45→17:34)
[2018-07-22] MEDS: Budesonide-Formoterol 80/4.5 MCG 6.9 GM Inhaler INH SCH (09:45)
[2018-07-22] MEDS: Furosemide 20 MG Tablet PO SCH (09:45)
[2018-07-22] MEDS: Insulin NovoLOG Aspart Correctional Sugar Inj SQ SCH ×4 (10:27→21:50)
--- NOTE | 2018-07-22 16:00 | P.PNIM ---
Subjective Interval history: No respiratory distress when seen. Patient does express that she feels very weak. Hypertension present today. Physical Exam Vital signs: Vital Signs 07/21/18 15:59 07/21/18 16:00 07/21/18 20:00 Temperature 98.3 F 98.1 F Pulse Rate 82 65 76 Respiratory Rate 16 16 17 Blood Pressure 177/80 H 185/77 H Pulse Oximetry 97 97 07/21/18 20:58 07/22/18 00:00 07/22/18 00:09 Temperature 97.6 F Pulse Rate 65 60 62 Respiratory Rate 16 17 20 Blood Pressure 197/76 H Pulse Oximetry 95 07/22/18 03:52 07/22/18 04:00 07/22/18 07:56 Temperature 97.5 F L Pulse Rate 61 63 62 Respiratory Rate 20 18 18 Blood Pressure 185/77 H Pulse Oximetry 96 97 07/22/18 08:00 07/22/18 09:00 07/22/18 11:43 Temperature 98.2 F Pulse Rate 70 72 64 Respiratory Rate 18 14 Blood Pressure 191/79 H Pulse Oximetry 98 07/22/18 12:00 07/22/18 15:42 Temperature 98.3 F Pulse Rate 65 72 Respiratory Rate 18 18 Blood Pressure 117/56 L Pulse Oximetry 94 L Intake & Output 07/21/18 07/22/18 07/22/18 18:59 06:59 18:59 Intake Total 1900 / 1900 450 / 450 Output Total 5200 / 5200 1400 / 1400 Balance -3300 / -3300 -950 / -950 Weight 76.1 kg Intake: IV 1100 / 1100 450 / 450 NS Inj 1,000 ML @ 45 mls/hr IV. 1100 / 1100 CONT .[id number] [facility] Rx#:[id number] Maxipime Inj 2,000 MG In NS Inj 100 / 100 100 ML @ 200 mls/hr IV.SIG Q12H [facility] Rx#:[id number] Vancomycin Inj 1,000 MG In NS 250 / 250 Inj 250 ML @ 250 mls/hr IV.SIG Q24H [facility] Rx#:[id number] Vancomycin Inj 500 MG In NS Inj 100 / 100 100 ML @ 200 mls/hr IV.SIG ONCE ONE Rx#:[id number] Oral 800 / 800 Output: Urine 5200 / 5200 1400 / 1400 Other: # Voids 8 # Urine Diapers 1 # Bowel Movements 2 Narrative: GENERAL: NAD, A&Ox3 HEAD: Normocephalic. NECK: Supple, trachea midline. No lymphadenopathy. EYES: No scleral icterus. No injection or drainage. CARDIOVASCULAR: Regular rate and rhythm without murmurs, gallops, or rubs. RESPIRATORY: Breath sounds equal bilaterally. No accessory muscle use. GASTROINTESTINAL: Abdomen soft, non-tender, nondistended. MUSCULOSKELETAL: No cyanosis, or edema. SKIN: Warm and dry. NEURO: No focal neurological deficits. Results - Labs CBC & Chem 7: 07/21/18 09:56 07/21/18 09:56 Laboratory Results - last 24 hr 07/21/18 07/21/18 07/21/18 18:04 20:45 23:10 POC Glucose 260 H 303 H Vancomycin Trough 10.1 H 07/22/18 07/22/18 08:47 12:04 POC Glucose 272 H 270 H Vancomycin Trough Microbiology 07/19/18 20:55 Blood - Peripheral Aerobic Blood Culture - Preliminary No growth in 3 days 07/19/18 20:55 Blood - Peripheral Anaerobic Blood Culture - Preliminary No growth in 3 days 07/19/18 20:50 Blood - Peripheral Aerobic Blood Culture - Preliminary No growth in 3 days 07/19/18 20:50 Blood - Peripheral Anaerobic Blood Culture - Preliminary No growth in 3 days Assessment and Plan - Assessment (1) HAP (hospital-acquired pneumonia) Code(s): J18.9 - Pneumonia, unspecified organism Status: Acute (2) Pneumonia Code(s): J18.9 - Pneumonia, unspecified organism Status: Acute - Plan 82-year-old female admitted secondary to hospital-acquired pneumonia and weakness with COPD exacerbation. (Sepsis was not present at any point during this admit) Healthcare associated pneumonia Downward trend in CBC Continue cefepime Continue vancomycin COPD exacerbation Continue steroids Continue Spiriva Continue Symbicort Continue duo nebs Continue Tessalon Perles Generalized weakness Continue physical therapy and Occupational Therapy Encourage activity Peripheral artery disease Patient status post left femoral bypass surgery Plan for removal of drain GI bleed Chronic anemia Follow CBC Diabetes mellitus type 2 Follow blood sugars Insulin sliding scale Diabetic diet Continue Levemir Hyperlipidemia Continue present treatment Follow as an outpatient Hypertension Continue baseline treatment Follow blood pressures Adjust treatments as needed Gastroesophageal reflux disease Continue baseline treatments DVT prophylaxis Lovenox
[2018-07-22] MEDS ORDERED: Lisinopril 10 MG Tablet PO SCH (21:00)
[2018-07-22] MEDS: Insulin Detemir Inj 1,000 UNIT/10 ML Vial SQ SCH (21:51)
[2018-07-22] MEDS: Vancomycin Inj 1,500 MG in Sodium Chlor 0.9% Inj 500 ML IV.SIG SCH (21:51)
[2018-07-23] MEDS: Hypromellose 0.3% Opth Gel 10 GM Bottle EACH EYE PRN ×2 (00:16→23:33)
[2018-07-23] MEDS: LORazepam 1 MG Tablet PO PRN ×2 (00:53→23:36)
[2018-07-23] MEDS: Budesonide-Formoterol 80/4.5 MCG 6.9 GM Inhaler INH SCH ×3 (01:36→22:18)
[2018-07-23] MEDS: Sucralfate 1 GM Tablet PO SCH (06:45)
[2018-07-23] MEDS: Insulin NovoLOG Aspart Correctional Sugar Inj SQ SCH ×4 (08:00→22:14)
[2018-07-23] MEDS: Ferrous Sulfate 325 MG Tablet PO SCH (08:55)
[2018-07-23] MEDS: hydrALAZINE 25 MG Tablet PO SCH ×3 (08:55→18:17)
[2018-07-23] MEDS: predniSONE 10 MG Tablet PO SCH (08:55)
[2018-07-23] MEDS: LORazepam 1 MG Tablet PO SCH (08:55)
[2018-07-23] MEDS: Lisinopril 20 MG Tablet PO SCH (08:56)
[2018-07-23] MEDS: Enoxaparin Inj 40 MG/0.4 ML Syringe SQ SCH (08:56)
[2018-07-23] MEDS: Furosemide 20 MG Tablet PO SCH (08:56)
[2018-07-23] MEDS: Gabapentin 300 MG Capsule PO SCH ×2 (08:56→22:13)
[2018-07-23] MEDS: Tiotropium Bromide 18 MCG/ACT Inhaler INH SCH (08:57)
[2018-07-23] MEDS: Insulin Detemir Inj 1,000 UNIT/10 ML Vial SQ SCH ×3 (09:00→22:16)
--- NOTE | 2018-07-23 17:10 | P.PNIM ---
Subjective Interval history: Slight improvement in strength. Patient is still coughing, especially in the mornings. No further fevers. She shows signs of improvement in regards to her infection. Blood pressures are not yet controlled. Physical Exam Vital signs: Vital Signs 07/22/18 20:00 07/22/18 20:32 07/23/18 00:00 Temperature 98.2 F 98.5 F Pulse Rate 66 61 72 Respiratory Rate 18 17 18 Blood Pressure 186/74 H 186/81 H Pulse Oximetry 95 92 L 07/23/18 04:00 07/23/18 08:00 07/23/18 08:10 Temperature 98.1 F 98.7 F Pulse Rate 59 L 61 61 Respiratory Rate 20 18 16 Blood Pressure 184/87 H 196/83 H Pulse Oximetry 95 93 L 98 07/23/18 12:00 07/23/18 15:06 07/23/18 16:00 Temperature 99 F 98.6 F Pulse Rate 62 62 73 Respiratory Rate 18 16 18 Blood Pressure 169/75 H 164/98 H Pulse Oximetry 92 L 98 98 Intake & Output 07/22/18 07/23/18 07/23/18 18:59 06:59 18:59 Intake Total 820 / 820 1095 / 1095 100 / 100 Output Total 1600 / 1600 1600 / 1600 Balance -780 / -780 -505 / -505 100 / 100 Intake: IV 100 / 100 615 / 615 100 / 100 Maxipime Inj 2,000 MG In NS Inj 100 / 100 100 / 100 100 / 100 100 ML @ 200 mls/hr IV.SIG Q12H [facility] Rx#:[id number] Vancomycin Inj 1,500 MG In NS 515 / 515 Inj 500 ML @ 250 mls/hr IV.SIG Q24H [facility] Rx#:[id number] Oral 720 / 720 480 / 480 Output: Urine 1600 / 1600 1600 / 1600 Narrative: GENERAL: NAD, A&Ox3 HEAD: Normocephalic. NECK: Supple, trachea midline. No lymphadenopathy. EYES: No scleral icterus. No injection or drainage. CARDIOVASCULAR: Regular rate and rhythm without murmurs, gallops, or rubs. RESPIRATORY: Breath sounds equal bilaterally. No accessory muscle use. GASTROINTESTINAL: Abdomen soft, non-tender, nondistended. MUSCULOSKELETAL: No cyanosis, or edema. SKIN: Warm and dry. NEURO: No focal neurological deficits. Results - Labs CBC & Chem 7: 07/21/18 09:56 07/23/18 05:50 Laboratory Results - last 24 hr 07/22/18 07/23/18 07/23/18 20:45 05:50 09:11 Creatinine 1.06 H Estimated GFR 50 L POC Glucose 161 H 139 H Microbiology 07/19/18 20:55 Blood - Peripheral Aerobic Blood Culture - Preliminary No growth in 4 days 07/19/18 20:55 Blood - Peripheral Anaerobic Blood Culture - Preliminary No growth in 4 days 07/19/18 20:50 Blood - Peripheral Aerobic Blood Culture - Preliminary No growth in 4 days 07/19/18 20:50 Blood - Peripheral Anaerobic Blood Culture - Preliminary No growth in 4 days Assessment and Plan - Assessment (1) HAP (hospital-acquired pneumonia) Code(s): J18.9 - Pneumonia, unspecified organism Status: Acute (2) Pneumonia Code(s): J18.9 - Pneumonia, unspecified organism Status: Acute - Plan 82-year-old female admitted secondary to hospital-acquired pneumonia and weakness with COPD exacerbation. COPD exacerbation improving. Signs of infection are also improving. Patient strength is coming back gradually. Continue physical therapy. Continue monitoring blood pressures and adjusting as needed. Potential discharge in 1-2 days. (Sepsis was not present at any point during this admit) Healthcare associated pneumonia Downward trend in CBC Continue cefepime Continue vancomycin COPD exacerbation Continue steroids Continue Spiriva Continue Symbicort Continue duo nebs Continue Tessalon Perles Generalized weakness Continue physical therapy and Occupational Therapy Encourage activity Peripheral artery disease Patient status post left femoral bypass surgery Plan for removal of drain GI bleed Chronic anemia Follow CBC Diabetes mellitus type 2 Follow blood sugars Insulin sliding scale Diabetic diet Continue Levemir Hyperlipidemia Continue present treatment Follow as an outpatient Hypertension Continue baseline treatment Follow blood pressures Adjust treatments as needed Gastroesophageal reflux disease Continue baseline treatments DVT prophylaxis Lovenox Discharge planning Potential discharge in 1-2 days. correction facility anticipated at discharge
[2018-07-23] MEDS: Sod Chloride 0.9% Inj 1,000 ML IV.CONT SCH (22:11)
[2018-07-23] MEDS: Vancomycin Inj 1,500 MG in Sodium Chlor 0.9% Inj 500 ML IV.SIG SCH (23:28)
[2018-07-23] MEDS: Benzonatate 100 MG Capsule PO PRN (23:36)
[2018-07-24] MEDS: Sucralfate 1 GM Tablet PO SCH (06:40)
[2018-07-24 06:47] LABS: Baso # (Auto) 0.1 th/mm3 (0.0-0.2); Baso % (Auto) 0.8 % (0.0-2.0); Eos # (Auto) 0.5 th/mm3 (0.0-0.4); Eos % (Auto) 3.9 % (0.0-4.0); Hematocrit 33.6 % (35.0-46.0); Hemoglobin 11.4 gm/dL (11.6-15.3); Lymph # (Auto) 2.1 th/mm3 (1.0-4.8); Lymph % (Auto) 14.8 % (9.0-44.0); Mean Corpuscular HGB Conc 33.8 % (32.0-36.0); Mean Corpuscular Hemoglobin 31.9 pg (27.0-34.0); Mean Corpuscular Volume 94.4 fL (80.0-100.0); Mean Platelet Volume 8.3 fL (7.0-11.0); Mono % (Auto) 7.5 % (0.0-8.0); Neut # (Auto) 10.1 th/mm3 (1.8-7.7); Platelet Count 362 th/mm3 (150-450); Red Blood Count 3.56 mil/mm3 (4.00-5.30); White Blood Count 13.8 th/mm3 (4.0-11.0)
[2018-07-24 06:53] LABS: Alanine Aminotransferase 25 U/L (10-53); Albumin 2.4 g/dL (3.4-5.0); Anion Gap 8 meq/L (5-15); Aspartate Aminotransferase 13 U/L (15-37); Calcium 8.4 mg/dL (8.5-10.1); Carbon Dioxide 33.1 meq/L (21.0-32.0); Chloride 97 meq/L (98-107); Glomerular Filtration Rate 48 mL/min (>89); Glucose,Random 207 mg/dL (74-106); Potassium 3.9 meq/L (3.5-5.1); Sodium 138 meq/L (136-145)
[2018-07-24 06:55] LABS: Alkaline Phosphatase 102 U/L (45-117); Blood Urea Nitrogen 27 mg/dL (7-18); Total Protein 6.5 g/dL (6.4-8.2)
[2018-07-24] MEDS: Lisinopril 20 MG Tablet PO SCH (08:16)
[2018-07-24] MEDS: hydrALAZINE 25 MG Tablet PO SCH ×3 (08:16→17:05)
[2018-07-24] MEDS: predniSONE 10 MG Tablet PO SCH (08:16)
[2018-07-24] MEDS: Enoxaparin Inj 40 MG/0.4 ML Syringe SQ SCH (08:16)
[2018-07-24] MEDS: Ferrous Sulfate 325 MG Tablet PO SCH (08:17)
[2018-07-24] MEDS: Gabapentin 300 MG Capsule PO SCH ×2 (08:17→21:38)
[2018-07-24] MEDS: LORazepam 1 MG Tablet PO SCH (08:17)
[2018-07-24] MEDS: Furosemide 20 MG Tablet PO SCH (08:17)
[2018-07-24] MEDS: Benzonatate 100 MG Capsule PO PRN ×2 (08:18→21:38)
[2018-07-24] MEDS: Insulin NovoLOG Aspart Correctional Sugar Inj SQ SCH ×4 (08:18→21:40)
[2018-07-24] MEDS: Insulin Detemir Inj 1,000 UNIT/10 ML Vial SQ SCH ×2 (08:18→21:40)
[2018-07-24] MEDS: Budesonide-Formoterol 80/4.5 MCG 6.9 GM Inhaler INH SCH ×2 (08:19→21:37)
[2018-07-24] MEDS: Tiotropium Bromide 18 MCG/ACT Inhaler INH SCH (08:19)
[2018-07-24] MEDS ORDERED: Senna/Docusate Sodium 8.6/50 MG Tablet PO ONE (13:00)
[2018-07-24] MEDS: amLODIPine 10 MG Tablet PO SCH (13:48)
--- NOTE | 2018-07-24 15:53 | P.PNIM ---
Subjective Interval history: 82-year-old female who is breathing better, stopped coughing up green phlegm and now coughs up only white phlegm. Her only complaints today are constipation and persistently elevated blood pressure. Physical Exam Vital signs: Vital Signs 07/23/18 16:00 07/23/18 18:00 07/23/18 18:10 Temperature 98.6 F Pulse Rate 73 61 Respiratory Rate 18 Blood Pressure 164/98 H 214/100 H Pulse Oximetry 98 07/23/18 19:00 07/23/18 20:00 07/23/18 22:45 Temperature 98.3 F Pulse Rate 65 Respiratory Rate 18 18 Blood Pressure 202/88 H 182/75 H Pulse Oximetry 95 07/23/18 23:52 07/24/18 00:00 07/24/18 02:00 Temperature 98.3 F Pulse Rate 71 64 68 Respiratory Rate 16 18 Blood Pressure 187/79 H Pulse Oximetry 93 L 07/24/18 04:00 07/24/18 04:21 07/24/18 08:00 Temperature 97.8 F 97.9 F Pulse Rate 80 68 63 Respiratory Rate 18 16 19 Blood Pressure 166/64 H 210/88 H Pulse Oximetry 93 L 96 07/24/18 09:00 07/24/18 09:45 07/24/18 12:00 Temperature 98.4 F Pulse Rate 60 45 L Respiratory Rate Blood Pressure 175/73 H Pulse Oximetry 93 L 96 Intake & Output 07/23/18 07/24/18 07/24/18 18:59 06:59 18:59 Intake Total 1180 / 1180 755 / 755 100 / 100 Output Total 2400 / 2400 1500 / 1500 Balance -1220 / -1220 -745 / -745 100 / 100 Weight 73.4 kg Intake: IV 100 / 100 515 / 515 100 / 100 Maxipime Inj 2,000 MG In NS Inj 100 / 100 100 / 100 100 ML @ 200 mls/hr IV.SIG Q12H [facility] Rx#:[id number] Vancomycin Inj 1,500 MG In NS 515 / 515 Inj 500 ML @ 250 mls/hr IV.SIG Q24H [facility] Rx#:[id number] Oral 1080 / 1080 240 / 240 Output: Urine 2400 / 2400 1500 / 1500 Other: Date of Last Bowel Movement 07/21/18 # Bowel Movements 0 0 Narrative: GENERAL: NAD, A&Ox3 HEAD: Normocephalic. NECK: Supple, trachea midline. No lymphadenopathy. EYES: No scleral icterus. No injection or drainage. CARDIOVASCULAR: Regular rate and rhythm without murmurs, gallops, or rubs. RESPIRATORY: Breath sounds equal bilaterally. No accessory muscle use. GASTROINTESTINAL: Abdomen soft, non-tender, nondistended. MUSCULOSKELETAL: No cyanosis, or edema. SKIN: Warm and dry. NEURO: No focal neurological deficits. Results - Labs CBC & Chem 7: 07/24/18 06:12 07/24/18 06:12 Laboratory Results - last 24 hr 07/23/18 07/23/18 07/23/18 18:22 20:34 23:59 WBC RBC Hgb Hct MCV MCH MCHC RDW Plt Count MPV Neut % (Auto) Lymph % (Auto) [place] % (Auto) Eos % (Auto) Baso % (Auto) Neut # (Auto) Lymph # (Auto) [place] # (Auto) Eos # (Auto) Baso # (Auto) WBC Differential Differential Comment Sodium Potassium Chloride Carbon Dioxide Anion Gap BUN Creatinine Estimated GFR POC Glucose 431 H 201 H 53 L Random Glucose Calcium Total Bilirubin AST ALT Alkaline Phosphatase Total Protein Albumin 07/24/18 07/24/18 07/24/18 00:24 01:18 06:12 WBC 13.8 H RBC 3.56 L Hgb 11.4 L Hct 33.6 L MCV 94.4 MCH 31.9 MCHC 33.8 RDW 15.0 Plt Count 362 MPV 8.3 Neut % (Auto) 73.0 H Lymph % (Auto) 14.8 [place] % (Auto) 7.5 Eos % (Auto) 3.9 Baso % (Auto) 0.8 Neut # (Auto) 10.1 H Lymph # (Auto) 2.1 [place] # (Auto) 1.0 H Eos # (Auto) 0.5 H Baso # (Auto) 0.1 WBC Differential . Differential Comment Auto diff final Sodium Potassium Chloride Carbon Dioxide Anion Gap BUN Creatinine Estimated GFR POC Glucose 91 133 H Random Glucose Calcium Total Bilirubin AST ALT Alkaline Phosphatase Total Protein Albumin 07/24/18 07/24/18 07/24/18 06:12 07:53 13:51 WBC RBC Hgb Hct MCV MCH MCHC RDW Plt Count MPV Neut % (Auto) Lymph % (Auto) [place] % (Auto) Eos % (Auto) Baso % (Auto) Neut # (Auto) Lymph # (Auto) [place] # (Auto) Eos # (Auto) Baso # (Auto) WBC Differential Differential Comment Sodium 138 Potassium 3.9 Chloride 97 L Carbon Dioxide 33.1 H Anion Gap 8 BUN 27 H Creatinine 1.10 H Estimated GFR 48 L POC Glucose 171 H 304 H Random Glucose 207 H Calcium 8.4 L Total Bilirubin 0.4 AST 13 L ALT 25 Alkaline Phosphatase 102 Total Protein 6.5 Albumin 2.4 L Microbiology 07/19/18 20:55 Blood - Peripheral Aerobic Blood Culture - Final No growth in 5 days 07/19/18 20:55 Blood - Peripheral Anaerobic Blood Culture - Final No growth in 5 days 07/19/18 20:50 Blood - Peripheral Aerobic Blood Culture - Final No growth in 5 days 07/19/18 20:50 Blood - Peripheral Anaerobic Blood Culture - Final No growth in 5 days Assessment and Plan - Assessment (1) HAP (hospital-acquired pneumonia) Code(s): J18.9 - Pneumonia, unspecified organism Status: Acute (2) Pneumonia Code(s): J18.9 - Pneumonia, unspecified organism Status: Acute - Plan 82-year-old female admitted secondary to hospital-acquired pneumonia and weakness with COPD exacerbation. Healthcare associated pneumonia Continue IV vancomycin and cefepime Following CBC trend COPD exacerbation Continue prednisone, Spiriva, Symbicort, duo nebs, Tessalon Perles Patient has shown significant improvement with standard therapy Generalized weakness Continue PT and OT Encourage activity Peripheral artery disease Patient status post left femoral bypass surgery, drain in place Plan for removal of drain GI bleed Chronic anemia Following CBC Diabetes mellitus type 2 Continue sliding-scale insulin coverage with Accu-Cheks Diabetic diet Continue Levemir DVT prophylaxis Lovenox Discharge planning Potential discharge in 1-2 days.
[2018-07-24] MEDS: Hypromellose 0.3% Opth Gel 10 GM Bottle EACH EYE PRN (21:37)
[2018-07-24] MEDS: LORazepam 1 MG Tablet PO PRN (21:39)
[2018-07-24] MEDS: Vancomycin Inj 1,500 MG in Sodium Chlor 0.9% Inj 500 ML IV.SIG SCH (23:09)
[2018-07-25 05:50] LABS: Hematocrit 32.7 % (35.0-46.0); Hemoglobin 11.1 gm/dL (11.6-15.3); Mean Corpuscular HGB Conc 33.9 % (32.0-36.0); Mean Corpuscular Volume 94.4 fL (80.0-100.0); Mean Platelet Volume 8.3 fL (7.0-11.0); Platelet Count 354 th/mm3 (150-450); Red Blood Count 3.46 mil/mm3 (4.00-5.30); White Blood Count 13.8 th/mm3 (4.0-11.0)
[2018-07-25] MEDS: Sucralfate 1 GM Tablet PO SCH (06:07)
[2018-07-25 06:17] LABS: Calcium 8.5 mg/dL (8.5-10.1); Potassium 4.1 meq/L (3.5-5.1)
[2018-07-25] MEDS: Furosemide 20 MG Tablet PO SCH (08:40)
[2018-07-25] MEDS: Ferrous Sulfate 325 MG Tablet PO SCH (08:40)
[2018-07-25] MEDS: predniSONE 10 MG Tablet PO SCH (08:40)
[2018-07-25] MEDS: amLODIPine 10 MG Tablet PO SCH (08:41)
[2018-07-25] MEDS: Gabapentin 300 MG Capsule PO SCH ×2 (08:41→20:00)
[2018-07-25] MEDS: Lisinopril 20 MG Tablet PO SCH (08:41)
[2018-07-25] MEDS: hydrALAZINE 25 MG Tablet PO SCH ×3 (08:41→17:29)
[2018-07-25] MEDS: LORazepam 1 MG Tablet PO SCH (08:43)
[2018-07-25] MEDS: Enoxaparin Inj 40 MG/0.4 ML Syringe SQ SCH (08:43)
[2018-07-25] MEDS: Insulin NovoLOG Aspart Correctional Sugar Inj SQ SCH ×4 (09:11→20:01)
[2018-07-25] MEDS: Insulin Detemir Inj 1,000 UNIT/10 ML Vial SQ SCH ×2 (09:14→20:00)
[2018-07-25] MEDS: Tiotropium Bromide 18 MCG/ACT Inhaler INH SCH (09:59)
[2018-07-25] MEDS: Budesonide-Formoterol 80/4.5 MCG 6.9 GM Inhaler INH SCH ×2 (10:00→20:01)
--- NOTE | 2018-07-25 14:05 | P.PNIM ---
Subjective Interval history: Patient had a bowel movement yesterday, woke up today without a headache and blood pressure was controlled after starting amlodipine. She is still awaiting work with physical therapy. Physical Exam Vital signs: Vital Signs 07/24/18 16:00 07/24/18 20:00 07/24/18 22:20 Temperature 98.0 F 98.2 F Pulse Rate 66 62 61 Respiratory Rate 20 17 24 Blood Pressure 166/79 H 152/70 H Pulse Oximetry 95 94 L 07/25/18 00:00 07/25/18 02:57 07/25/18 04:00 Temperature 98.4 F 98.1 F Pulse Rate 63 67 65 Respiratory Rate 15 18 17 Blood Pressure 151/64 H 138/77 Pulse Oximetry 93 L 93 L 07/25/18 08:00 07/25/18 08:50 Temperature 97.3 F L Pulse Rate 64 65 Respiratory Rate 18 18 Blood Pressure 122/58 L Pulse Oximetry 94 L Intake & Output 07/24/18 07/25/18 07/25/18 18:59 06:59 18:59 Intake Total 760 / 760 1035 / 1035 Output Total 1750 / 1750 Balance 760 / 760 -715 / -715 Weight 71.9 kg Intake: IV 200 / 200 615 / 615 Maxipime Inj 2,000 MG In NS Inj 200 / 200 100 / 100 100 ML @ 200 mls/hr IV.SIG Q12H [facility] Rx#:[id number] Vancomycin Inj 1,500 MG In NS 515 / 515 Inj 500 ML @ 250 mls/hr IV.SIG Q24H [facility] Rx#:[id number] Oral 560 / 560 420 / 420 Output: Urine 1750 / 1750 Other: # Voids 5 Date of Last Bowel Movement 07/24/18 07/21/18 07/24/18 # Bowel Movements 1 Narrative: GENERAL: NAD, A&Ox3 HEAD: Normocephalic. NECK: Supple, trachea midline. No lymphadenopathy. EYES: No scleral icterus. No injection or drainage. CARDIOVASCULAR: Regular rate and rhythm without murmurs, gallops, or rubs. RESPIRATORY: Breath sounds equal bilaterally. No accessory muscle use. GASTROINTESTINAL: Abdomen soft, non-tender, nondistended. MUSCULOSKELETAL: No cyanosis, or edema. SKIN: Warm and dry. NEURO: No focal neurological deficits. Results - Labs CBC & Chem 7: 07/25/18 05:01 07/25/18 05:01 Laboratory Results - last 24 hr 07/24/18 07/24/18 07/25/18 16:59 20:12 05:01 WBC RBC Hgb Hct MCV MCH MCHC RDW Plt Count MPV Sodium 138 Potassium 4.1 Chloride 98 Carbon Dioxide 32.0 Anion Gap 8 BUN 24 H Creatinine 1.12 H Estimated GFR 47 L POC Glucose 180 H 175 H Random Glucose 214 H Calcium 8.5 07/25/18 07/25/18 07/25/18 05:01 07:58 13:08 WBC 13.8 H RBC 3.46 L Hgb 11.1 L Hct 32.7 L MCV 94.4 MCH 32.0 MCHC 33.9 RDW 15.0 Plt Count 354 MPV 8.3 Sodium Potassium Chloride Carbon Dioxide Anion Gap BUN Creatinine Estimated GFR POC Glucose 220 H 289 H Random Glucose Calcium Microbiology 07/19/18 20:55 Blood - Peripheral Aerobic Blood Culture - Final No growth in 5 days 07/19/18 20:55 Blood - Peripheral Anaerobic Blood Culture - Final No growth in 5 days 07/19/18 20:50 Blood - Peripheral Aerobic Blood Culture - Final No growth in 5 days 07/19/18 20:50 Blood - Peripheral Anaerobic Blood Culture - Final No growth in 5 days Assessment and Plan - Assessment (1) HAP (hospital-acquired pneumonia) Code(s): J18.9 - Pneumonia, unspecified organism Status: Acute (2) Pneumonia Code(s): J18.9 - Pneumonia, unspecified organism Status: Acute - Plan 82-year-old female admitted secondary to hospital-acquired pneumonia and weakness with COPD exacerbation. Healthcare associated pneumonia Continue IV vancomycin and cefepime Following CBC trend COPD exacerbation Continue prednisone, Spiriva, Symbicort, duo nebs, Tessalon Perles Patient has shown significant improvement with standard therapy Generalized weakness Patient strength is somewhat improved, will request reevaluation of balance and gait. Encourage activity Peripheral artery disease Patient status post left femoral bypass surgery, drain in place Plan for removal of drain GI bleed Chronic anemia Following CBC Diabetes mellitus type 2 Continue sliding-scale insulin coverage with Accu-Cheks Diabetic diet Continue Levemir DVT prophylaxis Lovenox Discharge planning Potential discharge in 1-2 days. detention facility versus home.
[2018-07-25] MEDS: Benzonatate 100 MG Capsule PO PRN (20:10)
[2018-07-25] MEDS ORDERED: Pharmacy Ordered Lab Info OTHER ONE (21:45)
[2018-07-25] MEDS: Vancomycin Inj 1,500 MG in Sodium Chlor 0.9% Inj 500 ML IV.SIG SCH (22:40)
[2018-07-26] MEDS: LORazepam 1 MG Tablet PO PRN ×2 (01:03→21:38)
[2018-07-26 07:40] LABS: Hematocrit 31.2 % (35.0-46.0); Hemoglobin 10.4 gm/dL (11.6-15.3); Mean Corpuscular HGB Conc 33.3 % (32.0-36.0); Mean Platelet Volume 8.3 fL (7.0-11.0); Platelet Count 309 th/mm3 (150-450); Red Blood Count 3.25 mil/mm3 (4.00-5.30); Red Cell Distribution Width 14.6 % (11.6-17.2); White Blood Count 12.6 th/mm3 (4.0-11.0)
[2018-07-26] MEDS: Insulin Detemir Inj 1,000 UNIT/10 ML Vial SQ SCH ×2 (09:14→20:16)
[2018-07-26] MEDS: Enoxaparin Inj 40 MG/0.4 ML Syringe SQ SCH (09:14)
[2018-07-26] MEDS: predniSONE 10 MG Tablet PO SCH (09:15)
[2018-07-26] MEDS: Sucralfate 1 GM Tablet PO SCH (09:15)
[2018-07-26] MEDS: Gabapentin 300 MG Capsule PO SCH ×2 (09:15→20:15)
[2018-07-26] MEDS: Lisinopril 20 MG Tablet PO SCH (09:15)
[2018-07-26] MEDS: Ferrous Sulfate 325 MG Tablet PO SCH (09:15)
[2018-07-26] MEDS: hydrALAZINE 25 MG Tablet PO SCH ×3 (09:15→17:41)
[2018-07-26] MEDS: Furosemide 20 MG Tablet PO SCH (09:15)
[2018-07-26] MEDS: Insulin NovoLOG Aspart Correctional Sugar Inj SQ SCH ×4 (09:16→20:16)
[2018-07-26] MEDS: amLODIPine 10 MG Tablet PO SCH (09:16)
[2018-07-26] MEDS: LORazepam 1 MG Tablet PO SCH (09:16)
[2018-07-26] MEDS: Budesonide-Formoterol 80/4.5 MCG 6.9 GM Inhaler INH SCH ×2 (09:17→20:17)
[2018-07-26] MEDS: Benzonatate 100 MG Capsule PO PRN ×2 (10:29→20:15)
[2018-07-26] MEDS: Tiotropium Bromide 18 MCG/ACT Inhaler INH SCH (11:27)
--- NOTE | 2018-07-26 18:03 | P.PNIM ---
Subjective Interval history: Patient is able to get up out of bed today, uses walker to move the chair fairly dependently. She has no complaint of pain. She states that her cough continues to improve. Physical Exam Vital signs: Vital Signs 07/25/18 20:00 07/25/18 20:19 07/26/18 00:00 Temperature 98.3 F 97.7 F Pulse Rate 64 62 63 Respiratory Rate 17 16 15 Blood Pressure 135/60 142/66 H Pulse Oximetry 93 L 94 L 07/26/18 04:00 07/26/18 08:00 07/26/18 08:01 Temperature 97.9 F 97.5 F L Pulse Rate 65 61 60 Respiratory Rate 16 16 12 Blood Pressure 141/54 H 149/69 H Pulse Oximetry 95 95 93 L 07/26/18 12:00 07/26/18 12:30 07/26/18 16:00 Temperature 97.9 F 98.7 F Pulse Rate 61 82 65 Respiratory Rate 17 12 17 Blood Pressure 133/60 140/62 Pulse Oximetry 97 97 Intake & Output 07/25/18 07/26/18 07/26/18 18:59 06:59 18:59 Intake Total 660 / 660 855 / 855 Output Total 900 / 900 1700 / 1700 Balance -240 / -240 -845 / -845 Weight 72.4 kg Intake: IV 100 / 100 615 / 615 Maxipime Inj 2,000 MG In NS Inj 100 / 100 100 / 100 100 ML @ 200 mls/hr IV.SIG Q12H [facility] Rx#:[id number] Vancomycin Inj 1,500 MG In NS 515 / 515 Inj 500 ML @ 250 mls/hr IV.SIG Q24H [facility] Rx#:[id number] Oral 560 / 560 240 / 240 Output: Urine 900 / 900 1700 / 1700 Other: Date of Last Bowel Movement 07/24/18 07/24/18 Narrative: GENERAL: NAD, A&Ox3 HEAD: Normocephalic. NECK: Supple, trachea midline. No lymphadenopathy. EYES: No scleral icterus. No injection or drainage. CARDIOVASCULAR: Regular rate and rhythm without murmurs, gallops, or rubs. RESPIRATORY: Breath sounds equal bilaterally. No accessory muscle use. GASTROINTESTINAL: Abdomen soft, non-tender, nondistended. MUSCULOSKELETAL: No cyanosis, or edema. SKIN: Warm and dry. NEURO: No focal neurological deficits. Results - Labs CBC & Chem 7: 07/26/18 06:10 07/25/18 05:01 Laboratory Results - last 24 hr 07/25/18 07/25/18 07/26/18 19:23 22:32 06:10 WBC 12.6 H RBC 3.25 L Hgb 10.4 L Hct 31.2 L MCV 96.0 MCH 32.0 MCHC 33.3 RDW 14.6 Plt Count 309 MPV 8.3 POC Glucose 357 H Vancomycin Trough 21.5 H 07/26/18 17:21 WBC RBC Hgb Hct MCV MCH MCHC RDW Plt Count MPV POC Glucose 230 H Vancomycin Trough Assessment and Plan - Assessment (1) HAP (hospital-acquired pneumonia) Code(s): J18.9 - Pneumonia, unspecified organism Status: Acute (2) Pneumonia Code(s): J18.9 - Pneumonia, unspecified organism Status: Acute - Plan 82-year-old female admitted secondary to hospital-acquired pneumonia and weakness with COPD exacerbation. Healthcare associated pneumonia Continue IV vancomycin and cefepime Added incentive spirometry and Acapella Following CBC trend COPD exacerbation Continue prednisone, Spiriva, Symbicort, duo nebs, Tessalon Perles Patient has shown significant improvement with standard therapy Generalized weakness Patient strength is somewhat improved, will request reevaluation of balance and gait. Encourage activity, plan for rehab discharge Peripheral artery disease Patient status post left femoral bypass surgery, drain in place Plan for removal of drain GI bleed Chronic anemia Following CBC Diabetes mellitus type 2 Continue sliding-scale insulin coverage with Accu-Cheks Diabetic diet Continue Levemir DVT prophylaxis Lovenox Discharge planning Potential discharge tomorrow, rehab
[2018-07-26] MEDS ORDERED: Vancomycin Inj 1,400 MG in Sodium Chlor 0.9% Inj 500 ML IV.SIG SCH (22:00)
[2018-07-27] MEDS: Sucralfate 1 GM Tablet PO SCH (08:34)
[2018-07-27] MEDS: amLODIPine 10 MG Tablet PO SCH (08:34)
[2018-07-27] MEDS: predniSONE 10 MG Tablet PO SCH (08:34)
[2018-07-27] MEDS: Furosemide 20 MG Tablet PO SCH (08:34)
[2018-07-27] MEDS: LORazepam 1 MG Tablet PO SCH (08:34)
[2018-07-27] MEDS: Gabapentin 300 MG Capsule PO SCH (08:34)
[2018-07-27] MEDS: Lisinopril 20 MG Tablet PO SCH (08:34)
[2018-07-27] MEDS: hydrALAZINE 25 MG Tablet PO SCH ×2 (08:35→12:00)
[2018-07-27] MEDS: Ferrous Sulfate 325 MG Tablet PO SCH (08:35)
[2018-07-27] MEDS: Enoxaparin Inj 40 MG/0.4 ML Syringe SQ SCH (08:35)
[2018-07-27] MEDS: Insulin NovoLOG Aspart Correctional Sugar Inj SQ SCH ×2 (08:36→12:00)
[2018-07-27] MEDS: Budesonide-Formoterol 80/4.5 MCG 6.9 GM Inhaler INH SCH (08:37)
[2018-07-27] MEDS: Tiotropium Bromide 18 MCG/ACT Inhaler INH SCH (08:38)
[2018-07-27] MEDS: Benzonatate 100 MG Capsule PO PRN ×2 (08:46→16:16)
[2018-07-27] MEDS: Insulin Detemir Inj 1,000 UNIT/10 ML Vial SQ SCH (08:50)
[2018-07-27 10:09] VITALS: RESP 20
--- NOTE | 2018-07-27 12:40 | P.DS ---
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 She presents having experienced a fever at her halfway facility. She reports a productive cough which has progressively worsened over the past 4 days. She reports dysuria which is been going on for approximately a week. Denies any nausea, vomiting, chest pain, shortness of breath. No constipation. DS: Diagnosis - Discharge Diagnosis (1) HAP (hospital-acquired pneumonia) Status: Acute (2) Pneumonia Status: Acute DS: Medications - Discharge Medications Prescriptions: amlodipine [Norvasc] 10 mg PO DAILY 30 Days #30 tab apixaban [Eliquis] 2.5 mg PO BID 30 Days #60 tab atorvastatin 20 mg PO DAILY 30 Days #30 tab benzonatate [Tessalon Perles] 200 mg PO Q8H PRN 30 Days #60 cap PRN Reason: Cough budesonide-formoterol [Symbicort] 2 puff INH BID #1 g clindamycin HCl [Cleocin HCl] 300 mg PO QID 10 Days #40 cap ferrous sulfate [FeroSul] 325 mg PO DAILY 30 Days #30 tab furosemide [Lasix] 20 mg PO DAILY 30 Days #30 tab gabapentin 300 mg PO BID 30 Days #60 tab hydralazine 25 mg PO TID #90 tab insulin glargine [Lantus U-100 Insulin] 12 unit SUB-Q QAM 30 Days #1 box insulin glargine [Lantus U-100 Insulin] 13 unit SUB-Q HS 30 Days #1 box lisinopril 10 mg PO DAILY #30 tab lorazepam 1 mg PO DAILY PRN #30 tab PRN Reason: Anxiety nebivolol [Bystolic] 10 mg PO BID 30 Days #60 tab oxycodone 30 mg PO Q6H PRN 3 Days #12 tab PRN Reason: Acute Pain pantoprazole 40 mg PO DAILY 30 Days #30 tab potassium chloride 20 meq PO DAILY 30 Days #30 tab pramipexole 0.5 mg PO QPM 30 Days #30 tab prednisone 10 mg PO DAILY 10 Days #10 tab tiotropium bromide [Spiriva with HandiHaler] 18 mcg INH DAILY #1 inh DS: Summary Hospital Course: 82-year-old female who was a hospital readmission after 2 days of discharge returned with pneumonia. She was previously treated for COPD exacerbation, UTI , complications of weakness related to a left vein bypass. She failed outpatient treatment with azithromycin and returned to the hospital with COPD exacerbation and radiologic evidence of pneumonia. She was treated with vancomycin and cefepime for the last 6 days. She has done well with therapy, tolerated a prednisone taper well. And selection of her antibiotics is allergic to quinolones, failed azithromycin, allergic to penicillin. Logical choice is clindamycin to cover for gram-negative bugs. She should be followed closely in her rehab center to verify that her lung rogers are improving. At this point she has no outward signs of infection, laboratory values are stable and she is stable for discharge. She has been ambulating well with physical therapy and is eager to increase her activity. - Time Spent with Patient Total time spent providing and/or coordinating discharge services: Greater than 30 minutes Exam Vital signs: Vital Signs 07/26/18 16:00 07/26/18 19:00 07/26/18 20:00 Temperature 98.7 F 97.8 F Pulse Rate 70 60 62 Respiratory Rate 17 18 18 Blood Pressure 140/62 176/77 H Pulse Oximetry 97 97 96 07/27/18 00:00 07/27/18 04:00 07/27/18 08:00 Temperature 97.4 F L 98.0 F 97.9 F Pulse Rate 60 63 64 Respiratory Rate 18 19 20 Blood Pressure 129/59 L 159/65 H 179/74 H Pulse Oximetry 92 L 98 94 L 07/27/18 09:00 Temperature Pulse Rate 62 Respiratory Rate Blood Pressure Pulse Oximetry Intake & Output 07/26/18 07/27/18 07/27/18 18:59 06:59 18:59 Intake Total 720 / 720 954 / 954 Output Total 400 / 400 400 / 400 Balance 320 / 320 554 / 554 Weight 73.1 kg Intake: IV 714 / 714 Maxipime Inj 2,000 MG In NS Inj 200 / 200 100 ML @ 200 mls/hr IV.SIG Q12H [facility] Rx#:[id number] Vancomycin Inj 1,400 MG In NS 514 / 514 Inj 500 ML @ 250 mls/hr IV.SIG Q24H [facility] Rx#:[id number] Oral 720 / 720 240 / 240 Output: Urine 400 / 400 400 / 400 Other: # Voids 3 Date of Last Bowel Movement 07/26/18 07/26/18 # Bowel Movements 1 1 Results Procedures completed during hospitalization: none Labs on day of discharge: Labs from last 24 hours 07/27/18 07/27/18 07/26/18 11:31 07:55 19:44 Creatinine 1.33 H Estimated GFR 38 L POC Glucose 335 H 416 H 07/26/18 17:21 Creatinine Estimated GFR POC Glucose 230 H - Impressions ITS Impressions Chest X-Ray 07/19/18 20:38 CONCLUSION: Right lower lung consolidation or atelectasis. Given the history, this likely represents an area of pneumonia. Discharge Plan - Discharge Disposition Patient Disposition: Discharge to SNF - Discharge Condition Condition: Stable - Discharge Order Discharge Orders: Discharge Order (Routine); Ordered 07/27/18 Ordered By: Bernardino Lopez Vascular Surgery Clear for Discharge (Routine); Ordered 07/21/18 Ordered By: Prashant Farrell - Physicians Team Primary Care Provider: Crystal Allen Attending Provider: Bernardino Lopez Other Providers: Prashant Farrell MD ; [employer] ; [facility] ; [facility] ; [facility]
[2018-07-27 13:52] VITALS: BP 110/57; TEMP 97.8; O2SAT 98
[2018-07-27 16:32] VITALS: PULSE 62
[2018-07-28] MEDS ORDERED: Pharmacy Ordered Lab Info OTHER ONE (21:45)
== END 2018-07-27 16:40 ==
LOC: NEPE 20:24 → NEDA 22:11 → NEDH 07-20 05:52 → H7ONC 07-20 10:32 → N04 07-23 17:19
PROVIDERS: ADMIT Family Medicine; ATTEND Family Medicine